=== PATIENT | male | born 1980 | race Caucasian/White ===

== ENCOUNTER 2018-06-02 09:38 | Emergency (ER) | payer MEDICARE, MEDICAID, SELFPAY ==
[2018-06-02 09:44] VITALS: BP 129/85; PULSE 75; RESP 16; TEMP 36.6; O2SAT 98
--- NOTE | 2018-06-02 10:20 | ED.GENADUL_ITS ---
Discharge Plan Disposition Patient Disposition: HOME Condition: Fair Discharge Details Chief Complaint: FacialProb Clinical Impression: Sinus pain, Lymphadenopathy Primary Care Provider: Reinaldo Funk ED Provider: Taina Perry Home Meds and New Rx's Prescriptions: Continue levothyroxine 125 mcg tablet 125 mcg PO DAILY RF: 0 chlorthalidone 25 mg tablet 25 mg PO DAILY RF: 0 lisdexamfetamine [Vyvanse] 50 mg capsule 50 mg PO DAILY RF: 0 alprazolam 1 mg tablet 2 mg PO HS RF: 0 lurasidone [Latuda] 80 mg tablet 80 mg PO DAILY RF: 0 acetaminophen 650 mg tablet extended release 650 mg PO DAILY RF: 0 pregabalin 100 mg capsule 100 mg PO TID Qty: 90 RF: 3 ibuprofen 600 mg Tablet 600 mg PO PRN PRNRF: 0 Discharge Instructions Instructions: Sinusitis (ED) Additional Instructions: Encourage hydration. Tylenol and/or ibuprofen as needed for discomfort. You may try Afrin as directed on the packaging to help with sinus congestion. Please not take this more than 3 days. Please follow-up with primary care provider tomorrow as previously scheduled. If you develop difficulty breathing , shortness of breath or other new/worsening symptoms please seek care urgently once again. Referrals: Reinaldo Funk MD [Primary Care Provider] - Discharge Data Discharge Date/Time-TO BE ENTERED AT DEPARTURE: 06/02/18 10:24 Medical Decision Making Patient is a 37-year-old male, coming by significant other, with chief complaint of left-sided facial and neck pain. He reports the discomfort began approximately 4 days ago. His significant other notes that he has been congested and sneezing frequently. Has been using nasal decongestion, is unclear as to what type this is but reports it was prescribed to him for his seasonal allergies and by ENT. States that he has only used this intermittently. Denies any fevers or chills. Patient reports he has a chronic cough associated with smoking. Denies any difficulty swallowing or pain with swallowing. Denies any pain chewing or dental discomfort. Denies otalgia. On exam, he has a singular probable enlarged lymph node in the area of discomfort on the left side of the mandible. He is also point tender over the left frontal and maxillary sinuses. No pain on the right side. At this point, I do not feel this is bacterial origin is only been 4 days since the onset of discomfort. He is nontoxic appearing, afebrile with vital signs in normal limits. Advised nasal saline or Afrin to help with symptom medic management. He has an appointment tomorrow with his primary care at which time we will discuss this further. I encouraged hydration and smoking cessation. We discussed new/worsening symptoms once he care urgently once again. His also reports that he has been rubbing the enlarged lymph node frequently advised that he try to stop this habit. All his questions and concerns were addressed and he is in agreement this plan HPI General Mode of arrival: ambulatory . Date/Time Provider Initiated Documentation: 06/02/18 09:40 . Limitations to Documentation: no limitations . Information obtained by: patient and family . History of Present Illness 37 year old M presents to the emergency department with the chief complaint of left sided facial pain, described as moderate, with intensity rated at 9. Quality is described as aching, and is localized to the face. Patient reports no radiation. and it has been constant. No relieving factors improve symptom(s), No exacerbating factors reported . Patient notes denies cough, fever/chills, headaches, loss of appetite, malaise, nausea/vomiting, rash and shortness of breath. Patient did receive the following treatments prior to arrival, none Related Data Home Medications Medication Instructions Recorded Confirmed acetaminophen ER 650 mg 650 mg PO DAILY tab 04/07/18 06/02/18 tablet,extended release alprazolam 1 mg tablet 2 mg PO HS tab 04/07/18 06/02/18 chlorthalidone 25 mg tablet 25 mg PO DAILY 04/07/18 06/02/18 levothyroxine 125 mcg tablet 125 mcg PO DAILY 04/07/18 06/02/18 lisdexamfetamine 50 mg capsule 50 mg PO DAILY 04/07/18 06/02/18 lurasidone 80 mg tablet 80 mg PO DAILY 04/07/18 06/02/18 pregabalin 100 mg capsule 100 mg PO TID #90 cap 04/08/18 06/02/18 ibuprofen 600 mg PO PRN PRN 06/02/18 06/02/18 Previous Rx's Medication Instructions Recorded pregabalin 100 mg capsule 100 mg PO TID #90 cap 04/08/18 Allergies Allergy/AdvReac Type Severity Reaction Status Date / Time amoxicillin Allergy Unverified 06/02/18 09:47 Penicillins Allergy Unverified 06/02/18 09:47 Sulfa (Sulfonamide Allergy Unverified 06/02/18 09:47 Antibiotics) gabapentin AdvReac Intermediate agitation Unverified 06/02/18 09:47 trazodone AdvReac Mild Other (See Unverified 06/02/18 09:47 Comment) clonidine AdvReac Unverified 06/02/18 09:47 General Stated Complaint: FacialProb CAROL: 3 Review of Systems Constitutional Reports as per HPI, Denies chills, Denies fever(s), Denies headache(s) and Denies poor appetite Eyes Denies blurry vision, Denies change in vision, Denies diplopia and Denies eye discharge ENT Reports as per HPI, Denies otalgia, Reports facial pain, Denies headache(s), Denies hearing loss, Denies hoarseness, Reports nasal congestion, Reports sinus pain, Reports sinus pressure, Denies sore throat and Denies throat swelling Cardiovascular Denies chest pain, Denies dyspnea and Denies dyspnea on exertion Respiratory Denies cough, Denies dyspnea and Denies dyspnea on exertion Gastrointestinal Denies abdominal pain, Denies change in stool character, Denies nausea and Denies vomiting Integumentary/Breasts Reports as per HPI, Denies rash, Reports skin swelling, Denies sores and Denies jaundice Neurologic Denies headache(s) Allergic/Immunologic Denies throat swelling PFSH Family History Mother Depression Emphysema lung Cerebrovascular accident Father Diabetes Essential hypertension Sister No problems noted. Sister No problems noted. Grandfather No problems noted. Grandfather No problems noted. Grandmother No problems noted. Grandmother Diabetes Son No problems noted. Social History household members: spouse current occupational status: disabled pets and animals: Yes pets and animals: dog(s) frequency: does not exercise Smoking/Tobacco Use Status: Current every day tobacco type: cigarettes alcohol intake: never substance use type: marijuana matt/religious: Amish special matt needs: No Surgical History Tonsillectomy Exam Const General: cooperative, healthy appearing, comfortable, no acute distress, well developed and well groomed Nutritional Appearance: average body habitus and well nourished Orientation: alert, awake and oriented x3 HENMT Head: normal to inspection and normocephalic Ears: hearing grossly normal bilaterally, external ears normal and TM's normal bilaterally General nose exam: external nose normal and nares normal Face and sinus: sinuses tender and sinus tenderness (both on left side) frontal and maxillary Mouth: oral mucosae normal, lip normal, oropharynx normal and mucous membranes dry (patient appears dry on exam) Throat: posterior oropharynx normal and tonsils normal Eyes General: appearance normal, both eyes and all related structures Neck Neck: normal visual inspection, full ROM, no lymphadenopathy and no meningeal signs Resp Effort & Inspection: normal respiratory effort, able to speak in complete sentences and no respiratory distress Auscultation: clear to auscultation bilaterally Cardio Rate: regular rate Rhythm: regular rhythm Heart Sounds: S1 normal and S2 normal Skin General skin exam: no rashes or lesions noted Lesions: no lesions Rashes: no rashes Neuro General: alert and awake Cranial Nerves: CN's II-XI intact bilaterally Cognition: normal cognition Speech: speech normal Gait: normal gait Psych Appearance: grossly normal and well kempt Mental Status: mental status grossly normal Speech and Movement: speech and movement normal Course Vital Signs Temperature 36.6 C 06/02/18 09:44 Pulse 75 06/02/18 09:44 Respiratory Rate 16 06/02/18 09:44 Blood Pressure 129/85 06/02/18 09:44 Pulse Oximetry 98 06/02/18 09:44 Temperature 36.6 C 06/02/18 09:44 Temperature Source Skin 06/02/18 09:44 Pulse 75 06/02/18 09:44 Respiratory Rate 16 06/02/18 09:44 Blood Pressure 129/85 06/02/18 09:44 Pulse Oximetry 98 06/02/18 09:44 Oxygen Delivery Method Room Air 06/02/18 09:44 Oxygen Flow Rate 0 06/02/18 09:44 Pain Level 9 06/02/18 09:44
== END 2018-06-02 10:24 | disposition home or self-care (01) ==
PROVIDERS: Emergency Provider Physician Assistant; PCP Family Medicine
DX: R59.0 Localized enlarged lymph nodes (principal); R51 Headache; F17.210 Nicotine dependence, cigarettes, uncomplicated
CPT/HCPCS: 99282

== ENCOUNTER → 2018-10-13 09:10 | Outpatient (BNVA) | payer MEDICARE, MEDICAID, SELFPAY | PROVIDERS: PCP Family Medicine; Referring Provider Family Medicine; Visit Provider Surgery | DX: K42.9 Umbilical hernia without obstruction or gangrene (principal); F17.210 Nicotine dependence, cigarettes, uncomplicated; I10 Essential (primary) hypertension | CPT/HCPCS: 99212; 99214 ==

== ENCOUNTER 2018-10-13 10:10 | Outpatient (CLI) | payer MEDICARE, MEDICAID, SELFPAY | END 2018-10-13 10:30 | PROVIDERS: PCP Family Medicine; Visit Provider Family Medicine | DX: R69 Illness, unspecified (principal) | CPT/HCPCS: 36415; 84520; 82565; 86431 ==

== ENCOUNTER 2018-10-15 01:24 | Outpatient (CLI) | payer MEDICARE, MEDICAID, SELFPAY ==
--- NOTE | 2018-10-15 08:18 | DI.CT_ITS ---
SYMPTOM/DIAGNOSIS: PAIN RADIATING TO RT SIDE, HERNIA, K46.[address]: The study was carried out according to the usual protocol with an intravenous administration of 100 cc's of Omnipaque 350 and oral contrast. The lung bases are unremarkable. The liver and gallbladder are intact. The pancreas is intact. The spleen is unremarkable. The kidneys are normal. The adrenals are normal. There is no evidence of bowel obstruction and no localized bowel abnormality is apparent. There is no evidence of free air or free fluid in the intraperitoneal space. The bladder is intact. The reproductive organs as visualized are unremarkable. A small fat containing umbilical hernia is apparent. There is no evidence of an aortic aneurysm. There are minimal degenerative changes involving the lower dorsal and lumbar spine. SUMMARY: The examination is within normal limits.
[2018-10-15 09:22] LABS: BUN 21 mg/dL (7-18); CREATININE 0.93 mg/dL (0.70-1.30)
[2018-10-15] MEDS: Omnipaque 350 MG/ML 100 ML BTL IJ (09:48)
[2018-10-16 11:14] LABS: Rheumatoid Factor <8 IU/mL (<12.5)
== END 2018-10-15 01:44 ==
PROVIDERS: PCP Family Medicine; Visit Provider Surgery
DX: R10.31 Right lower quadrant pain (principal); K46.9 Unspecified abdominal hernia without obstruction or gangrene; K42.9 Umbilical hernia without obstruction or gangrene; M25.50 Pain in unspecified joint
CPT/HCPCS: 84520; 74177; 82565; 86431; J3490

== ENCOUNTER → 2018-10-20 12:48 | Outpatient (BNVA) | payer MEDICARE, MEDICAID, SELFPAY | PROVIDERS: PCP Family Medicine; Referring Provider Family Medicine; Visit Provider Surgery | DX: K42.9 Umbilical hernia without obstruction or gangrene (principal); I10 Essential (primary) hypertension; F17.210 Nicotine dependence, cigarettes, uncomplicated | CPT/HCPCS: 99212; 99214 ==

== ENCOUNTER 2018-10-31 09:38 | Outpatient (CLI) | payer MEDICARE, MEDICAID, SELFPAY ==
[2018-10-31 11:22] LABS: BUN 24 mg/dL (7-18); CREATININE 0.82 mg/dL (0.70-1.30); Calcium 9.1 mg/dL (8.5-10.1); Chloride 100 mmol/L (98-107); Glucose 122 mg/dL (70-100); Potassium 3.8 mmol/L (3.5-5.1); Sodium 138 mmol/L (136-145)
== END 2018-10-31 09:58 ==
PROVIDERS: PCP Family Medicine; Visit Provider Family Medicine
DX: I10 Essential (primary) hypertension (principal)
CPT/HCPCS: 36415; 80048

== ENCOUNTER 2018-11-06 07:47 | Emergency (ER) | payer MEDICARE, SELFPAY ==
[2018-11-06 07:50] VITALS: BP 152/101; PULSE 81; RESP 16; TEMP 36; O2SAT 99
--- NOTE | 2018-11-06 08:12 | DI.RAD_ITS ---
SYMPTOM/DIAGNOSIS: JUMPED OFF BED, PAIN,? FX VS EFFUSION RIGHT HIP AND PELVIS: There is no evidence of a fracture or dislocation. RIGHT KNEE: There is no evidence of a fracture or dislocation.
--- NOTE | 2018-11-06 08:13 | ED.GENADUL_ITS ---
Discharge Plan Disposition Patient Disposition: HOME Condition: Stable Discharge Details Chief Complaint: Orthopedic Clinical Impression: Right knee sprain, Strain of right hip and thigh Primary Care Provider: Reinaldo Funk ED Provider: Dariela Cortes Home Meds and New Rx's Prescriptions: Continued dicyclomine 10 mg capsule 10 mg PO QID PRN (Reason: abdominal pain) Qty: 30 RF: 1 trazodone 100 mg tablet 100 mg PO DAILY RF: 0 cyclobenzaprine 10 mg tablet 10 mg PO HS PRN (Reason: muscle spasm) Qty: 30 RF: 0 chlorthalidone 25 mg tablet 25 mg PO DAILY RF: 0 Latuda 80 mg tablet 80 mg PO DAILY RF: 0 acetaminophen 650 mg tablet extended release 650 mg PO DAILY RF: 0 alprazolam 2 mg tablet 2 mg PO ONCE PRN (Reason: anxiety) Qty: 1 RF: 0 fluticasone propionate 50 mcg/actuation spray,suspension 2 spray SHAYLA DAILY Qty: 9.9 RF: 4 levothyroxine 125 mcg tablet 125 mcg PO DAILY Qty: 90 RF: 4 pregabalin 100 mg capsule 100 mg PO TID Qty: 90 RF: 3 ibuprofen 600 mg Tablet 600 mg PO PRN PRNRF: 0 Discharge Instructions Instructions: Knee Sprain (ED), Muscle Strain (ED) Additional Instructions: Rest, ice, elevate right lower extremity is much as possible. Use the crutches to help with ambulation for the next 2 days. Follow-up with your primary care doctor in 1 week for reevaluation as needed and for referral to orthopedics if your symptoms do not improve or worsen. Return immediately to the emergency department with any worsening or new concerning symptoms. Discharge Data Discharge Physician: Dariela Cortes Medical Decision Making 38-year-old male who presents with right hip and right knee pain after jumping out of bed and landing on his right leg this morning. Patient able to ambulate but with pain. No ligamentous instability. Pain with range of motion at right hip and right knee. No evidence of trauma. Neurovascularly intact. Patient took Aleve and Tylenol prior to arrival. Will send for right hip and right knee x-rays. 0855 -- Xrays negative. Will place an kalyn wrap and give crutches. Pt instructed on the importance of rest, ice, elevate. Instructed to alternate tylenol and motrin. Instructed to f/u with pcp for re-evaluation in 1 week and for referral to orthopedics if symptoms do not improve or worsen. Pt instructed to return to the ER with any worsening or new concerning symptoms. HPI General Mode of arrival: ambulatory . Date/Time Provider Initiated Documentation: 11/06/18 08:10 . Limitations to Documentation: no limitations . Information obtained by: patient . HPI Narrative: Patient is a 38-year-old male who presents with right hip and right knee pain that started after jumping out of bed this morning. Patient states he has doors under his bed and needs to jump outward in order to get out of bed. Patient states he landed on his right foot but is now having pain in his right hip and right knee. He is able to ambulate but with pain. He took Aleve and Tylenol prior to arrival. He denies any other injuries. He denies head injury. He denies pain in any other extremity. He denies right ankle or right foot pain. Related Data Home Medications Medication Instructions Recorded Confirmed acetaminophen ER 650 mg 650 mg PO DAILY tab 04/07/18 11/06/18 tablet,extended release chlorthalidone 25 mg tablet 25 mg PO DAILY 04/07/18 11/06/18 lurasidone 80 mg tablet 80 mg PO DAILY 04/07/18 11/06/18 ibuprofen 600 mg PO PRN PRN 06/02/18 11/06/18 fluticasone propionate 50 2 spray SHAYLA DAILY #9.9 gm 06/04/18 11/06/18 mcg/actuation nasal spray,suspension levothyroxine 125 mcg tablet 125 mcg PO DAILY #90 tab 07/15/18 11/06/18 pregabalin 100 mg capsule 100 mg PO TID #90 cap 08/07/18 11/06/18 cyclobenzaprine 10 mg tablet 10 mg PO HS PRN #30 tab 09/16/18 11/06/18 trazodone 100 mg tablet 100 mg PO DAILY 09/16/18 11/06/18 alprazolam 2 mg tablet 2 mg PO ONCE PRN #1 tab 10/14/18 11/06/18 dicyclomine 10 mg capsule 10 mg PO QID PRN #30 cap 10/31/18 11/06/18 Previous Rx's Medication Instructions Recorded fluticasone propionate 50 2 spray SHAYLA DAILY #9.9 gm 06/04/18 mcg/actuation nasal spray,suspension levothyroxine 125 mcg tablet 125 mcg PO DAILY #90 tab 07/15/18 pregabalin 100 mg capsule 100 mg PO TID #90 cap 08/07/18 cyclobenzaprine 10 mg tablet 10 mg PO HS PRN #30 tab 09/16/18 alprazolam 2 mg tablet 2 mg PO ONCE PRN #1 tab 10/14/18 dicyclomine 10 mg capsule 10 mg PO QID PRN #30 cap 10/31/18 Allergies Allergy/AdvReac Type Severity Reaction Status Date / Time amoxicillin Allergy anaphylaxis, Verified 11/06/18 07:55 rash, hives Penicillins Allergy anaphylaxis, Verified 11/06/18 07:55 hives, rash Sulfa (Sulfonamide Allergy breaks out Verified 11/06/18 07:55 Antibiotics) in hives, diarrhea, anaphylaxis gabapentin AdvReac Intermediate agitation Verified 11/06/18 07:55 clonidine AdvReac makes Verified 11/06/18 07:55 chest tight General Stated Complaint: Orthopedic CAROL: 5 Review of Systems Review of Systems All systems reviewed & are unremarkable except as noted in HPI and below PFSH Medical History Smoker (Chronic) Gastroesophageal reflux disease (Chronic) Depressive disorder (Chronic) Bipolar I disorder (Chronic) Essential hypertension (Chronic) BMI 40.0-44.9, adult (Chronic 01/11/16) Attention deficit hyperactivity disorder, combined type (Chronic) Anxiety (Chronic) Obsessive-compulsive disorder (Chronic) Hernia, umbilical (Acute) Dorsopathy, unspecified (Chronic) Overweight (Chronic) Sensorineural hearing loss (Chronic) Surgical History Tonsillectomy Family History Mother Depression Emphysema lung Stroke Asthma Hypertension Hyperlipidemia Father Diabetes Essential hypertension Alcohol abuse Grandmother Diabetes Sister Alcohol abuse Depression Sister No problems noted. Son Depression Social History Smoking/Tobacco Use Status: Current every day Tobacco Type: cigarettes Quit status: considering quitting Second Hand Exposure: Yes Alcohol Intake: former Drug use: Daily Substance use type: marijuana Caregiver/Support person: Yes Household members: spouse Housing: house Do you need help understanding health information?: Never Pets and animals: Yes Pets and animals: dog(s) Sexually active: Yes Do you think of yourself as: straight/heterosexual Current gender identity: male What is your relationship status?: How often do you talk on the phone with friends or family?: three or more times per week How often do you get together with friends or relatives?: decline to answer How often do you attend yazdanism or faith services?: decline to answer Do you belong to any clubs or organized social groups?: no Panel score (0-1 are the most socially isolated patients): 2 What type of physical activity do you participate in: none Frequency: does not exercise Daja/Cheondoism: Sabianist Special daja needs: No Do you feel safe at home: Yes Do you feel safe in your relationship?: Yes Exam Const General: cooperative, healthy appearing and no acute distress HENMT Head: normal to inspection Mouth: oral mucosae normal Eyes General: appearance normal, both eyes and all related structures Neck Neck: normal visual inspection Resp Effort & Inspection: normal respiratory effort and able to speak in complete sentences Cardio Rate: regular rate Skin General skin exam: no rashes or lesions noted Neuro General: alert, awake and oriented x3 Motor: muscle tone normal throughout Extrem Other: Pain in right knee with range of motion. Negative anterior and posterior drawer test. No pain or laxity with valgus or varus stress. No edema, ecc hymosis, erythema, abrasion or laceration to right knee. Pain in right hip and right proximal thigh with range of motion. No edema, ecchymosis, erythema, external rotation or leg shortening noted. No pain with range of motion at right ankle. No tenderness palpation of right ankle right foot. Right DP/PT pulses intact. No pelvis instability. No tenderness to palpation of left hip. Psych Appearance: grossly normal Affect: normal affect Course Vital Signs Temperature 96.8 F L 11/06/18 07:50 Pulse 81 11/06/18 07:50 Respiratory Rate 16 11/06/18 07:50 Blood Pressure 152/101 H 11/06/18 07:50 Pulse Oximetry 99 11/06/18 07:50 Temperature 96.8 F L 11/06/18 07:50 Temperature Source Temporal Artery Scan 11/06/18 07:50 Pulse 81 11/06/18 07:50 Respiratory Rate 16 11/06/18 07:50 Respiratory Effort Non-Labored 11/06/18 07:53 Blood Pressure 152/101 H 11/06/18 07:50 Blood Pressure Position Sitting 11/06/18 07:50 Pulse Oximetry 99 11/06/18 07:50 Oxygen Delivery Method Room Air 11/06/18 07:50 Oxygen Flow Rate 0 11/06/18 07:50 Pain Level 5 11/06/18 07:59
== END 2018-11-06 09:10 | disposition home or self-care (01) ==
PROVIDERS: Emergency Provider Physician Assistant; PCP Family Medicine
DX: S83.91XA Sprain of unspecified site of right knee, initial encounter (principal); S76.811A Strain of other specified muscles, fascia and tendons at thigh level, right thigh, initial encounter; S76.011A Strain of muscle, fascia and tendon of right hip, initial encounter; X50.1XXA Overexertion from prolonged static or awkward postures, initial encounter
CPT/HCPCS: 99284; 73502; 73564; 99282; E0114

== ENCOUNTER 2018-11-11 06:03 | Day surgery (SDC) | payer MEDICARE, SELFPAY ==
[2018-11-11] VITALS (8 sets, daily range): BP systolic 125–153; BP diastolic 83–111; PULSE 68–93; RESP 14–20; TEMP 35.9–37.1; O2SAT 91–96
[2018-11-11] MEDS: Lactated Ringers 1,000 ML 80 ML IV (06:48)
[2018-11-11] MEDS: CLINDAMYCIN 600 MG/50 ML BAG 100 MG IVPB (08:28)
[2018-11-11] MEDS: Bupivacaine 0.25% Pres-Free 30 ML VIAL (10:20)
[2018-11-11] MEDS: Bupivacaine LIPOSOME/PF 133 MG/10 ML VIAL IJ (10:20)
--- NOTE | 2018-11-11 10:20 | W.PM.OP ---
Date of service: 11/11/18 Time of Service: 10:20 Operative Note DATE OF PROCEDURE: 11/11/18 PRE-OP DIAGNOSIS: symptomatic umbilical hernia POST-OP DIAGNOSIS: same PROCEDURE: laprascopic umbilical hernia repair w/ mesh SURGEON: Shavonne Sesay ASSISTING SURGEON: Yane Villalobos ANESTHESIA: GETA ESTIMATED BLOOD LOSS: 10 PATHOLOGY: none sent TOURNIQUET TIME: 0 COMPLICATIONS: None Patient was transported to: PACU Implants: bard 4.6 mesh see RN notes Indications: pain Findings: umbilical hernia Procedure Description: dicated
--- NOTE | 2018-11-11 10:53 | W.PM.DSUDISC ---
Discharge Plan Disposition Patient Disposition: HOME Condition: Improving Discharge Details Reason For Visit: laprascopic hernia repair Attending Provider: Shavonne Sesay Primary Care Provider: Reinaldo Funk Home Meds and New Rx's Prescriptions: New hydrocodone-acetaminophen [[place]] 5-325 mg tablet 1 tab PO Q4H PRN (Reason: pain) Qty: 14 RF: 0 ibuprofen 800 mg tablet 800 mg PO TID PRN (Reason: pain) Qty: 60 RF: 4 Continued dicyclomine 10 mg capsule 10 mg PO QID PRN (Reason: abdominal pain) Qty: 30 RF: 1 trazodone 100 mg tablet 100 mg PO DAILY RF: 0 cyclobenzaprine 10 mg tablet 10 mg PO HS PRN (Reason: muscle spasm) Qty: 30 RF: 0 chlorthalidone 25 mg tablet 25 mg PO HS RF: 0 Latuda 80 mg tablet 80 mg PO HS RF: 0 fluticasone propionate 50 mcg/actuation spray,suspension 2 spray SHAYLA DAILY Qty: 9.9 RF: 4 pregabalin 100 mg capsule 100 mg PO TID Qty: 90 RF: 3 levothyroxine 125 mcg tablet 125 mcg PO HS RF: 0 Discontinued acetaminophen 650 mg tablet extended release 650 mg PO DAILY RF: 0 ibuprofen 600 mg Tablet 600 mg PO PRN PRNRF: 0 Discharge Instructions Additional Instructions: Dr. Sesay HERNIA REPAIR ? POSTOPERATIVE INSTRUCTIONS ? The MESH surgery for hernia repair allows the patient to return to normal activities at an early date. Patients who have this type of surgery can usually be expected to return to work within 2-3 weeks and have minimal amounts of discomfort. ? ACTIVITY: The day of surgery should be spent resting. However, you can be up for short periods of time, I.E., going to the bathroom or kitchen. Avoid lifting or straining. On the day following surgery, you can be up and about as desired. ? LIFTING: Restrict your lifting to no more than five (5) pounds for the first week following surgery. ? DIET: There are no dietary restrictions following surgery. However, you may want to start with small amounts of liquids to avoid nausea the day of surgery. ? INCISION CARE: A dressing covers your incision. You will notice strips of tape covering the wound ? DO NOT REMOVE THESE STRIPS - they help the wound to heal. After 24 hours you may shower and apply a clean dressing over the strips of tape. The dressing may be replaced as necessary. An ice bag may be applied to the incision for 72 hours following surgery. ? SIGNS OF INFECTION: It is not unusual to have some black and blue discoloration of the skin around the incision. It will slowly disappear. If you have any increased redness, drainage, fever (above 100 degrees), please contact your doctor for an examination. ? DISCOMFORT: You may expect to have some mild discomfort at the incision sight. If severe pain develops you should contact your doctor for further instructions. ? URINATION: Patients who have surgery occasionally have problems urinating. If you experience problems and are not able to urinate within 6 hours following your surgery, please call your doctor immediately or go to your nearest Emergency Room for evaluation. ? DRIVING: NO driving for five (5) days after surgery ? MEDICATIONS: You have been given a prescription for pain. If you are taking pain medication, follow the instructions on the label and do not drive. Some patients have conditions that require antibiotics, please follow the instructions on the label and take all of the antibiotics. Pain medications can make you very constipated. Make sure you are moving your bowels daily. If not, take Miralax, milk of magnesia or magnesium citrate. ? REPORT: Unusual swelling, severe pain, unresolved nausea, signs of infection, or difficulty in urination to your surgeon. Follow up in clinic with Dr. Sesay in 1-2 weeks. Activity:: no lifting over 5#'s Remove Dressings/Wound Care:: 24 hours Shower/Bathe:: 24 hours Diet:: As Tolerated Discharge Orders Discharge Orders: Discharge Order (Routine); Ordered 11/11/18 Ordered By: Shavonne Sesay DS: Diagnosis Discharge Diagnosis (1) Umbilical hernia: Status: Chronic (2) Smoker: Status: Chronic (3) Gastroesophageal reflux disease: Status: Chronic
--- NOTE | 2018-11-11 11:52 | ROE_ITS ---
DATE OF PROCEDURE: November 11, 2018 PREOPERATIVE DIAGNOSIS: Umbilical hernia. POSTOPERATIVE DIAGNOSIS: Same. PROCEDURE: Laparoscopic umbilical hernia. SURGEON: Shavonne Sesay D.O. PUNCH PRESS OPERATOR HELPER: Barby Bain ANESTHESIA: General. ESTIMATED BLOOD LOSS: < 5 cc's CONDITION: The patient tolerated the procedure well without complication. HISTORY: Mr. Singh is a 38-year-old male with a symptomatic umbilical hernia that has failed outpatient conservative medical management and is here today for laparoscopic hernia repair. Informed consent was obtained, explaining the risks and benefits of the procedure, including but not limited to bleeding, infection, pneumonia, blood clot, possible damage to bowel, bladder or blood vessels, recurrence, reaction to the mesh necessitating removal, chronic pain, chronic numbness, recurrence, complications from the anesthesia and other unforetold complications. PROCEDURE DESCRIPTION: The patient was marked in preop. He was brought to the surgical suite. Anesthesia is administered per the Department of Anesthesia. He did receive preop antibiotics. A Grayson catheter and NG tube are placed. A time-out is performed. The patient is prepped and draped in the usual sterile fashion using a ChloraPrep scrub solution. A Veress needle is inserted into the umbilicus. The skin is elevated with towel clips. A #11 blade is used to make a small incision at the umbilicus. The Veress is inserted. The drop test is positive and insufflation is begun; when 15 mm of pressure is noted on the monitor the Veress is removed. A #5 port is inserted into the right upper quadrant. The camera is inserted through the port, which shows no damage to underlying structures. A second 5 mm port is placed under direct visualization, using 0.25% Marcaine for local field blocks in the left upper quadrant and in the left lower quadrant. A 12 port is placed in the right lower quadrant. He has a defect slt larger than the size of a quarter. He has some fatty tissue hanging through this. There is no omentum adhered up to the area. The fatty tissue is taken down in clearing off the peritoneum and fascia. He has a large urachal remnant and this is taken down using cautery and sharp dissection. There is no bleeding noted. The umbilicus is cleared with 2 cm of space around. An 18 gauge spinal needle is then used to delineate the borders of the hernia defect and a 4.6 Bard mesh with the positioning assistance device is used; it is introduced through the 5 port and the guidance positioning system is pulled up through the umbilicus. The balloon is insufflated and clamped into place. A [employer] ProTack device is then used to tack around the edges of the mesh. The positioning device is de-sufflated and removed. It is intact. The ProTack is then used to tack the mesh down every 2 mm around the edges and in the central portions. There is no bleeding noted. The pneumoperitoneum is evacuated and the mesh lays flat without wrinkling or buckling. All ports are removed. There is no bleeding from the port sites. Sponge and instrument counts are correct. The fascia under the 12 mm port is closed with #0 Vicryl. The port sites are irrigated. The skin is closed with skin glue and sterile dressings are applied. The patient tolerated the procedure well without complication and transferred to the Recovery Room in stable condition. cc: Reinaldo Funk M.D.
[2018-11-11] MEDS: HYDROcodone 5/Acetaminophen 325 TAB PO (12:11)
== END 2018-11-11 12:55 | disposition home or self-care (01) ==
PROVIDERS: PCP Family Medicine; Visit Provider Surgery
PROC: (CPT 49650; principal; 2018-11-11 08:15)
DX: K42.9 Umbilical hernia without obstruction or gangrene (principal); I10 Essential (primary) hypertension; F17.210 Nicotine dependence, cigarettes, uncomplicated; K21.9 Gastro-esophageal reflux disease without esophagitis
CPT/HCPCS: 49652; 93005; 93010; C1781; J1100; J1885; J2250; J2405

== ENCOUNTER → 2018-11-14 11:04 | Outpatient (BNVA) | payer MEDICARE, MEDICAID, SELFPAY | PROVIDERS: PCP Family Medicine; Referring Provider Family Medicine; Visit Provider Physical Therapy Assistant | DX: Z48.815 Encounter for surgical aftercare following surgery on the digestive system (principal); G89.18 Other acute postprocedural pain; I10 Essential (primary) hypertension | CPT/HCPCS: 99212 ==

== ENCOUNTER → 2018-12-01 08:49 | Outpatient (BNVA) | payer MEDICARE, SELFPAY | PROVIDERS: PCP Family Medicine; Referring Provider Family Medicine; Visit Provider Surgery | DX: Z48.815 Encounter for surgical aftercare following surgery on the digestive system (principal); K42.9 Umbilical hernia without obstruction or gangrene; I10 Essential (primary) hypertension ==

== ENCOUNTER 2020-10-10 14:34 | Emergency (ER) | payer MEDICARE, SELFPAY ==
--- NOTE | 2020-10-10 14:45 | RT.EKG_ITS ---
APPROVED REPORT Exam: Resting ECG Patient Location: E HR:97 bpm ECG Measurements Heart Rate 97 AXIS MI 153 P 64 QRSd 98 QRS 70 QT 371 T 5 QTc 471 Conclusion Sinus rhythm...normal P axis, V-rate 60- 99 SR 97, nl axis, non-specific ST changes, non-diagnostic ekg I have reviewed and interpreted ECG and agree with software generated interpretation.
[2020-10-10 14:50] VITALS: BP 141/85; PULSE 105; RESP 15; TEMP 37; O2SAT 96
--- NOTE | 2020-10-10 15:15 | DI.CT_ITS ---
EXAM: CT CHEST PE CTA CLINICAL HISTORY: SOB, R/O PE, Chest pain. TECHNIQUE: Imaging Protocol: Axial CT angiography was performed with multi-slice acquisition and mu lti-planar and/or 3D reconstructions. CONTRAST MATERIAL: Intravenous: Omnipaque 350 Contrast volume:100 mL COMPARISON: CT CT ABDOMEN PELVIS W from 10/15/2018 FINDINGS: Tracheobronchial tree: Patent where visualized. Pulmonary parenchyma: No consolidation or dominant measurable mass. No architectural distortion. Pulmonary Arteries: No evidence of filling defect to suggest pulmonary emboli. Mediastinum and Becki: No dominant adenopathy or fluid collection. Visualized thyroid gland: Unremarkable. Pleura: No effusion or pneumothorax. Heart: The heart is not dilated. No coronary artery calcifications are seen. No pericardial effusion. Aorta: Thoracic aorta non-dilated. No evidence of dissection. Upper abdomen: Unremarkable. Soft tissues: Unremarkable. Bones: Mild degenerative changes. IMPRESSION: No evidence of pulmonary embolism, thoracic aortic dissection or aneurysm. RADIATION DOSE DELIVERED: 547.3mGy.cm Total DLP DATA REPOSITORY: All CT scans at this facility are submitted to the National Radiology Data Registry (NRDR) Dose Index Registry (DIR) with the [employer] (ACR). RADIATION OPTIMIZATION: All CT scans at this facility use at least one of these dose optimization te chniques: automated exposure control; mA and/or kV adjustment per patient size (includes targeted exa ms where dose is matched to clinical indication); or iterative reconstruction.
--- NOTE | 2020-10-10 15:20 | W.ED.GENAD ---
Discharge Plan Disposition Patient Disposition: HOME Condition: Good Discharge Details Clinical Impression: Chest pain, Flank pain Primary Care Provider: Valentine Ortiz ED Provider: Taina Perry Home Meds and New Rx's Prescriptions: Continued fluticasone propionate 50 mcg/actuation spray,suspension 2 spray SHAYLA DAILY PRN (Reason: allergy symptoms) Qty: 9.9 RF: 3 chlorthalidone 25 mg tablet 25 mg PO HS Qty: 90 RF: 4 Latuda 20 mg tablet 20 mg PO QPM RF: 0 zolpidem 10 mg tablet 10 mg PO QHS PRNRF: 0 Latuda 80 mg tablet 80 mg PO DAILY RF: 0 pregabalin 100 mg capsule 100 mg PO TID Qty: 90 RF: 5 cyclobenzaprine 10 mg tablet 10 mg PO HS PRN (Reason: muscle spasm) Qty: 30 RF: 4 ibuprofen 800 mg tablet 800 mg PO TID PRN (Reason: pain) Qty: 60 RF: 0 levothyroxine 125 mcg tablet 125 mcg PO HS Qty: 90 RF: 4 clonazepam 0.5 mg tablet 0.5 mg PO DAILY PRNRF: 0 Discharge Instructions Instructions: Chest Pain (ED), Flank Pain (ED) Additional Instructions: Your labs and imaging today are reassuring.You may use Tylenol and/or Ibuprofen as needed for discomfort. May try topical options such as Lidocaine patches to help with pain. Please encourage gentle stretching. Encourage deep breathing. Please follow-up with primary care for reevaluation within the next week. If you develop increased pain with any new/worsening symptoms please seek care urgently once again. Referrals: Valentine Ortiz, [employer] [Primary Care Provider] - Discharge Data Discharge Date/Time-TO BE ENTERED AT DEPARTURE: 10/10/20 19:15 Medical Decision Making <Hillary Sampson - Last Filed: 10/14/20 15:37> 40-year-old morbidly obese male presents to the ER with chief complaint of shortness of breath and left-sided chest pain which began earlier today he reports radiation of pain into his left anterior and posterior shoulder. He states it hurts to breathe. He denies any cough or productive cough. He denies any nausea vomiting diarrhea, he is a daily smoker. He denies any abdominal pain. He denies any recent travel. He denies any swelling in his lower extremities. He denies any recent injuries. He has a past medical history of hypertension, GERD, OCD, anxiety, hypothyroidism hernia repair, tonsillectomy. He does endorse marijuana use, he does state that he is a former alcohol user none currently. EKG was reviewed by Celeste Amezcua MD ER attending, please see her official reading and report, there was no old EKGs available for review. At this time work-up ordered including CBC, CMP, serial troponins, proBNP, Covid testing, CT chest rule out PE versus pneumonia. Differential diagnosis includes but not limited to coronary artery disease, NSTEMI, PE, pneumonia, kidney stone, UTI, pancreatitis. Care is being handed off to oncoming provider KIRILL Love. Patient case and details discussed with her she verbalizes understanding and recommends lipase and urinalysis to add on to labs. <KIRILL Love - Last Filed: 10/10/20 23:36> Care transition myself from Emy Meade NP. Please see her initial note regarding history, presentation and exam. In brief, patient is a 40-year-old male who began having some in the left lower chest pain. No infectious symptoms. Lab work has been completed and is significant for white count of 13.8. H&H stable. CMP significant for an alk phos of 128, patient has been elevated historically. Initial troponin is within normal limit. No STEMI or acute ischemic changes noted on EKG. At the time I assumed his care, Covid testing, CT scan and repeat troponin pending. Lipase within normal limits. FINDINGS: Pulmonary arteries: Normal. No pulmonary emboli. Aorta: Unremarkable. No aortic aneurysm. No aortic dissection. Lungs: Unremarkable. No consolidation. No masses. Pleural spaces: Unremarkable. No pneumothorax. No pleural effusion. Heart: Unremarkable. No cardiomegaly. No pericardial effusion. Lymph nodes: Unremarkable. No enlarged lymph nodes. Bones/joints: Mild chronic degenerative changes of the spine are present. Soft tissues: Unremarkable. IMPRESSION: No evidence of pulmonary embolism. Reevaluated patient. Patient is now indicating the left flank as area of pain. He has pain with CVA percussion. Lungs clear, cardiac auscultation normal. Patient states that this seems the same as when he had kidney stone historically. We discussed presentation more as well. Sudden onset of pain at 1000 today. Pain improves with ambulation. No worsening of symptoms with exertion. Pain is not substernal, low lateral chest wall. FINDINGS: Liver: Normal. No mass. Gallbladder and bile ducts: Normal. No calcified stones. No ductal dilation. Pancreas: Normal. No ductal dilation. Spleen: Normal. No splenomegaly. Adrenal glands: Normal. No mass. Kidneys and ureters: Normal. No hydronephrosis. The ureters are well visualized with no evidence of ureteral obstruction. Stomach and bowel: Unremarkable. No obstruction. No mucosal thickening. Appendix: No evidence of appendicitis. Intraperitoneal space: Unremarkable. No free air. No significant fluid collection. Vasculature: Unremarkable. No abdominal aortic aneurysm. Lymph nodes: Unremarkable. No enlarged lymph nodes. Urinary bladder: Unremarkable as visualized. Reproductive: Unremarkable as visualized. Bones/joints: Chronic degenerative changes of the spine are present. Soft tissues: Morbid obesity is present. IMPRESSION: No acute findings. I discussed the findings with the patient. Repeat troponin remains less than 0.05. His heart score is 2 making her low risk. Pain is not consistent with cardiac origin. Rather, as this does seem to be so positional dependent, his pain is more consistent with MSK source. He would like to be discharged home. Plan for close f/u with PCP. Strict return precautions were discussed. Encourage weight loss and smoking cessation. All of his questions and concerns were addressed, he is in agreement with this plan. HPI <Hillary Sampson - Last Filed: 10/14/20 15:37> General Mode of arrival: ambulatory. Date/Time Provider Initiated Documentation: 10/10/20 14:36. Limitations to Documentation: no limitations. Information obtained by: patient. HPI Narrative: 40-year-old morbidly obese male presents to the ER with chief complaint of shortness of breath and left-sided chest pain which began earlier today he reports radiation of pain into his left anterior and posterior shoulder. He states it hurts to breathe. He denies any cough or productive cough. He denies any nausea vomiting diarrhea, he is a daily smoker. He denies any abdominal pain. He denies any recent travel. He denies any swelling in his lower extremities. He denies any recent injuries. He has a past medical history of hypertension, GERD, OCD, anxiety, hypothyroidism hernia repair, tonsillectomy. He does endorse marijuana use, he does state that he is a former alcohol user none currently. Related Data Home Medications Medication Instructions Recorded Confirmed fluticasone propionate 50 2 spray SHAYLA DAILY PRN #9.9 gm 12/02/18 10/10/20 mcg/actuation nasal spray,suspension lurasidone 80 mg tablet 80 mg PO DAILY 08/31/19 10/10/20 zolpidem 10 mg tablet 10 mg PO QHS PRN 08/31/19 10/10/20 chlorthalidone 25 mg tablet 25 mg PO HS #90 tab 10/29/19 10/10/20 pregabalin 100 mg capsule 100 mg PO TID #90 cap 06/21/20 10/10/20 cyclobenzaprine 10 mg tablet 10 mg PO HS PRN #30 tab 06/27/20 10/10/20 lurasidone 20 mg tablet 20 mg PO QPM 08/30/20 10/10/20 ibuprofen 800 mg tablet 800 mg PO TID PRN #60 tab 10/03/20 10/10/20 levothyroxine 125 mcg tablet 125 mcg PO HS #90 tab 10/03/20 10/10/20 clonazepam 0.5 mg PO DAILY PRN 10/10/20 10/10/20 Previous Rx's Medication Instructions Recorded fluticasone propionate 50 2 spray SHAYLA DAILY PRN #9.9 gm 12/02/18 mcg/actuation nasal spray,suspension chlorthalidone 25 mg tablet 25 mg PO HS #90 tab 10/29/19 pregabalin 100 mg capsule 100 mg PO TID #90 cap 06/21/20 cyclobenzaprine 10 mg tablet 10 mg PO HS PRN #30 tab 06/27/20 ibuprofen 800 mg tablet 800 mg PO TID PRN #60 tab 10/03/20 levothyroxine 125 mcg tablet 125 mcg PO HS #90 tab 10/03/20 Allergies Allergy/AdvReac Type Severity Reaction Status Date / Time amoxicillin Allergy anaphylaxis, Verified 08/30/20 10:43 rash, hives Penicillins Allergy anaphylaxis, Verified 08/30/20 10:43 hives, rash Sulfa (Sulfonamide Allergy breaks out Verified 08/30/20 10:43 Antibiotics) in hives, diarrhea, anaphylaxis gabapentin AdvReac Intermediate agitation Verified 08/30/20 10:43 clonidine AdvReac makes Verified 08/30/20 10:43 chest tight tramadol AdvReac I don't Verified 08/30/20 10:43 take tramadol. General Stated Complaint: RespSymp CAROL: 2 Review of Systems <Hillary Sampson - Last Filed: 10/14/20 15:37> Narrative: Constitutional: Negative for weight loss, alert and oriented, well groomed, obese body habitus, appears short of breath. HEENT: Denies trauma, headaches, blurry vision, nasal discharge, sore throat, trouble swallowing. Chest: Denies palpitations, irregular rhythm, positive left-sided chest pain increases with movement and breathing, history of hypertension. Respiratory: Denies cough, hemoptysis. Positive shortness of breath associated with left-sided chest pain. GI: Denies abdominal pain, nausea, vomiting, diarrhea, constipation. : Denies dysuria, hematuria, flank pain, rectal bleeding. Neuro: Denies dizziness, blurry vision, weakness, syncope, headache or facial numbness. Hematologic: Denies easy bruising, intolerance to heat or cold, hair loss. [facility] <Hillary Sampson - Last Filed: 10/14/20 15:37> Medical History Abdominal pain Anxiety Attention deficit hyperactivity disorder, combined type Bipolar I disorder BMI 40.0-44.9, adult (01/11/16) Depressive disorder Dorsopathy, unspecified Essential hypertension Gastroesophageal reflux disease Hernia, umbilical 11/11/[address]esay. Obsessive-compulsive disorder Overweight Sensorineural hearing loss Smoker Umbilical hernia Surgical History History of umbilical hernia repair S/P tendon repair Status post tonsillectomy Tonsillectomy Family History Mother Depression Emphysema lung Stroke Asthma Hypertension Hyperlipidemia Father Diabetes Essential hypertension Alcohol abuse Grandmother Diabetes Sister Alcohol abuse Depression Sister No problems noted. Son Depression Social History Smoking/Tobacco Use Status: Current every day Tobacco Type: cigarettes Quit status: considering quitting Second Hand Exposure: Yes Smoking risk assessment performed?: Yes Alcohol Intake: former Drug use: Daily Substance use type: marijuana Details: last time used 2 days ago Caregiver/Support person: Yes Household members: spouse Housing: house Do you need help understanding health information?: Never Pets and animals: Yes Pets and animals: dog(s) Sexually active: Yes Do you think of yourself as: straight/heterosexual Current gender identity: male What is your relationship status?: How often do you talk on the phone with friends or family?: three or more times per week How often do you get together with friends or relatives?: decline to answer How often do you attend alevism or scientologist services?: decline to answer Do you belong to any clubs or organized social groups?: no Panel score (0-1 are the most socially isolated patients): 2 What type of physical activity do you participate in: none Frequency: does not exercise Daja/Taoism: Episcopal Special daja needs: No Do you feel safe at home: Yes Do you feel safe in your relationship?: Yes Exam <Hillary Sampson - Last Filed: 10/14/20 15:37> Narrative Exam Narrative: Constitutional: Alert and oriented x3. Appears stated age. Obese body habitus. Head: Normocephalic, no trauma. Eyes: Pupils PERRLA, Red reflex noted, EOM's intact. Eyelids symmetrical without lesions, discharge, or swelling. ENT: Bilateral TM's WNL, External ear normal to inspection, no mastoid TTP, swelling, or erythema, Nasal turbinates WNL, no nasal discharge. Normal dentition, Posterior pharynx WNL, no exudate. Chest: Tachycardic initially at a rate of 109, Normal S1, S2, distal pulses intact. Resp: Lung sounds are diminished on the left side, with some inspiratory rhonchi noted on the right lower lobe. No wheezing. Musculoskeletal: Normal gait, 5/5 strength to all four extremities. Skin: Capillary refill less than 2 sec. Neurologic: Cranial nerves II-XII intact. Alert and oriented x 3. DTR's intact. Hematologic/Lymphatic: No ecchymosis, no lymphadenopathy. Course <Hillary Sampson - Last Filed: 10/14/20 15:37> Vital Signs Vital signs: Vital Signs Temperature 37.0 C 10/10/20 14:50 Pulse 105 H 10/10/20 14:50 Respiratory Rate 15 10/10/20 14:50 Blood Pressure 141/85 H 10/10/20 14:50 Pulse Oximetry 96 10/10/20 14:50 Temperature 37.0 C 10/10/20 14:50 Pulse 105 H 10/10/20 14:50 Respiratory Rate 15 10/10/20 14:50 Respiratory Effort 10/10/20 15:17 Respiratory Depth Normal 10/10/20 15:17 Blood Pressure 141/85 H 10/10/20 14:50 Blood Pressure Position Sitting 10/10/20 14:50 Pulse Oximetry 96 10/10/20 14:50 Oxygen Delivery Method Room Air 10/10/20 14:50 Oxygen Flow Rate 0 10/10/20 14:50 Pain Level 10 10/10/20 14:50 Sign Out <Hillary Sampson - Last Filed: 10/14/20 15:37> Sign Out Data: Sign Out Comment: 40 year old man Acute onset Left sided chest pain radiating up into shoulder. Pending serial Troponin, CT chest, and dispo. Last updated by Hillary Sampson at 10/10/20 15:59
[2020-10-10 15:26] LABS: Abs Immature Grans 0.03 10^3/uL (0.0-0.06); Absolute Basophil Count 0.07 10^3/uL (0.0-0.2); Absolute Lymphocyte Count 3.52 10^3/uL (1.2-3.4); Absolute Monocyte Count 0.77 10^3/uL (0.1-0.8); Basophils % 0.5; Eosinophils % 2.2; HCT 48.5 % (40.0-50.0); HGB 16.1 g/dL (13.5-17.5); Immature Grans % 0.2; Lymphocytes % 25.5; MCH 29.1 pg (27.0-33.0); MCHC 33.2 % (32.0-36.0); MCV 87.7 fL (80-95); MPV 9.6 fL (8.0-11.0); Monocytes % 5.6; Nucleated RBC 0 %; Platelet Count 289 10^3/uL (130-400); RBC 5.53 10^6/uL (4.36-5.78); RDW 13.2 % (11.8-14.1); RDW-SD 42.7 fL
[2020-10-10 15:27] LABS: Absolute Neutrophil Count 9.11 10^3/uL (1.2-6.7)
[2020-10-10] MEDS: Normal Saline 1,000 ML 150 ML IV (15:29)
[2020-10-10] MEDS: Aspirin 81 MG CHEW 324 MG CH (15:29)
[2020-10-10 15:37] LABS: ALT 60 U/L (16-63); AST 27 U/L (15-37); Albumin 3.4 g/dL (3.4-5.0); Alkaline Phosphatase 128 U/L (46-116); Anion Gap 5.3 mmol/L (3-11); BUN 15 mg/dL (7-18); Bilirubin, Total 0.4 mg/dL (0.2-1.0); CO2 33.7 mmol/L (21.0-32.0); CREATININE 0.9 mg/dL (0.70-1.30); Calcium 8.6 mg/dL (8.5-10.1); Chloride 99 mmol/L (98-107); Glucose 122 mg/dL (74-106); Magnesium 1.9 mg/dL (1.8-2.4); Potassium 3.5 mmol/L (3.5-5.1); Sodium 138 mmol/L (136-145); Total Protein 7.5 g/dL (6.4-8.2)
[2020-10-10 15:47] LABS: Troponin I < 0.05 ng/mL (<0.06)
[2020-10-10 16:04] VITALS: BP 143/121; PULSE 103; PULSE 98; RESP 19
[2020-10-10 16:19] VITALS: O2SAT 97
[2020-10-10] MEDS: Omnipaque 350 MG/ML 100 ML BTL IJ (16:20)
[2020-10-10] MEDS: Normal Saline - Diluent 50 ML VIAL IV (16:21)
[2020-10-10 16:26] LABS: Bilirubin Negative (Negative); Blood Negative (Negative); Clarity Clear (Clear); Glucose Negative (Negative); Ketones Negative (Negative); Leukocyte Esterase Negative (Negative); Nitrite Negative (Negative); Specific Gravity 1.025 (1.005-1.025); Urobilinogen 0.2 EU/dL (Up TO 0.2); pH 7.5 (5-8)
[2020-10-10 16:32] LABS: COVID-19 PCR Negative (Negative); Influenza A PCR Negative (Negative); Influenza B PCR Negative (Negative); RSV PCR Negative (Negative)
[2020-10-10 16:44] LABS: NT-proBNP 30 pg/mL (<300)
[2020-10-10 16:46] VITALS: BP 148/77; PULSE 103; RESP 22; O2SAT 96
--- NOTE | 2020-10-10 16:49 | DI.VRAD_ITS ---
PROCEDURE INFORMATION: Exam: CT Angiography Chest With Contrast Exam date and time: 10/10/2020 4:29 PM Age: 40 years old Clinical indication: Shortness of breath; Patient HX: SOB, R/O pe, chest pain TECHNIQUE: Imaging protocol: Computed tomographic angiography of the chest with contrast. 3D rendering (Not supervised by radiologist): MIP and/or 3D reconstructed images were created by the technologist. COMPARISON: No relevant prior studies available. FINDINGS: Pulmonary arteries: Normal. No pulmonary emboli. Aorta: Unremarkable. No aortic aneurysm. No aortic dissection. Lungs: Unremarkable. No consolidation. No masses. Pleural spaces: Unremarkable. No pneumothorax. No pleural effusion. Heart: Unremarkable. No cardiomegaly. No pericardial effusion. Lymph nodes: Unremarkable. No enlarged lymph nodes. Bones/joints: Mild chronic degenerative changes of the spine are present. Soft tissues: Unremarkable. IMPRESSION: No evidence of pulmonary embolism. Dictated and Authenticated by: Som Osman MD. Ordering:FREDERIC Thornton MD
[2020-10-10 16:50] LABS: Lipase 70 U/L (73-393)
--- NOTE | 2020-10-10 17:15 | DI.CT_ITS ---
EXAM: CT RENAL COLIC WO CLINICAL HISTORY: left flank pain. TECHNIQUE: Imaging Protocol: Axial computed tomography images with coronal and sagittal reformatted images were created and reviewed. COMPARISON: CT CT CHEST PE CTA from 10/10/2020 FINDINGS: There is contrast in the renal collecting system from the patient's CT angiography of the chest perfo rmed earlier in the day. The examination is limited due to patient motion artifact. ABDOMEN: Lung Bases: Normal where visualized. Liver: Normal density. No measurable mass. Gallbladder and biliary tract: No radiodense calculus or biliary ductal dilation. Pancreas: Normal density, no abnormal calcifications or inflammatory process. Spleen: Normal. Kidneys: The contrast in the collecting system may obscure any nonobstructing stones. Normal size, c ontour and axis.No radiodense stones or obstructive uropathy. No masses seen. Adrenal glands: No mass is seen. Lymph nodes: Within normal limits. Abdominal Aorta: Abdominal portion non-dilated. PELVIS: Bladder:Symmetric distention, no gross wall thickening. Bowel: No obstruction or bowel wall thickening. No evidence of appendicitis. Peritoneal cavity: No ascites, collection or mesenteric inflammatory response. No free air. Reproductive organs: Within normal limits. Bones: Within normal limits. Soft Tissues: Small fat containing left inguinal hernia. IMPRESSION: No acute abnormality. No evidence of hydronephrosis. RADIATION DOSE DELIVERED: 1,641.71mGy.cm Total DLP DATA REPOSITORY: All CT scans at this facility are submitted to the National Radiology Data Registry (NRDR) Dose Index Registry (DIR) with the [employer] (ACR). RADIATION OPTIMIZATION: All CT scans at this facility use at least one of these dose optimization te chniques: automated exposure control; mA and/or kV adjustment per patient size (includes targeted exa ms where dose is matched to clinical indication); or iterative reconstruction.
--- NOTE | 2020-10-10 18:09 | DI.VRAD_ITS ---
PROCEDURE INFORMATION: Exam: CT Abdomen And Pelvis Without Contrast Exam date and time: 10/10/2020 5:46 PM Age: 40 years old Clinical indication: Abdominal pain; Patient HX: Left flank pain; Additional info: HX of stones TECHNIQUE: Imaging protocol: Computed tomography of the abdomen and pelvis without contrast. COMPARISON: CT ABDOMEN PELVIS W 10/15/2018 9:41 AM FINDINGS: Liver: Normal. No mass. Gallbladder and bile ducts: Normal. No calcified stones. No ductal dilation. Pancreas: Normal. No ductal dilation. Spleen: Normal. No splenomegaly. Adrenal glands: Normal. No mass. Kidneys and ureters: Normal. No hydronephrosis. The ureters are well visualized with no evidence of ureteral obstruction. Stomach and bowel: Unremarkable. No obstruction. No mucosal thickening. Appendix: No evidence of appendicitis. Intraperitoneal space: Unremarkable. No free air. No significant fluid collection. Vasculature: Unremarkable. No abdominal aortic aneurysm. Lymph nodes: Unremarkable. No enlarged lymph nodes. Urinary bladder: Unremarkable as visualized. Reproductive: Unremarkable as visualized. Bones/joints: Chronic degenerative changes of the spine are present. Soft tissues: Morbid obesity is present. IMPRESSION: No acute findings. Dictated and Authenticated by: Som Osman MD. Ordering:INGE Her MD
[2020-10-10] MEDS: Ketorolac 30 MG/ML VIAL IVP (18:22)
[2020-10-10] MEDS: Acetaminophen 500 MG TAB 1000 MG PO (18:22)
[2020-10-10 18:58] LABS: Troponin I < 0.05 ng/mL (<0.06)
== END 2020-10-10 19:15 | disposition home or self-care (01) ==
PROVIDERS: Registered Nurse Emergency; Emergency Provider Physician Assistant; PCP Nurse Practitioner
DX: R07.81 Pleurodynia (principal); R10.12 Left upper quadrant pain; M54.5 Low back pain; Z87.442 Personal history of urinary calculi; Z03.818 Encounter for observation for suspected exposure to other biological agents ruled out
CPT/HCPCS: 36415; 71275; 80053; 83690; 93005; 96361; 96374; 96375; 96376; 99285; 74176; 81003; 83735; 83880; 84484; 85025; 93010; 99284; J1885; J3490

== ENCOUNTER 2020-10-25 03:31 | Outpatient (CLI) | payer MEDICARE, SELFPAY ==
[2020-10-25 12:32] LABS: Abs Immature Grans 0.04 10^3/uL (0.0-0.06); Absolute Basophil Count 0.09 10^3/uL (0.0-0.2); Absolute Eosinophil Count 0.29 10^3/uL (0.0-0.7); Absolute Monocyte Count 0.72 10^3/uL (0.1-0.8); Basophils % 0.8; Eosinophils % 2.5; HCT 47.1 % (40.0-50.0); HGB 15.9 g/dL (13.5-17.5); Immature Grans % 0.3; Lymphocytes % 24.5; MCH 28.9 pg (27.0-33.0); MCHC 33.8 % (32.0-36.0); MCV 85.5 fL (80-95); MPV 9.6 fL (8.0-11.0); Monocytes % 6.3; Neutrophils % 65.6; Nucleated RBC 0 %; Platelet Count 339 10^3/uL (130-400); RBC 5.51 10^6/uL (4.36-5.78); RDW 13.5 % (11.8-14.1); RDW-SD 42.2 fL; WBC 11.43 10^3/uL (4.4-10.8)
[2020-10-25 12:40] LABS: Hemoglobin A1C 6.1 % (<5.7)
[2020-10-25 12:51] LABS: ALT 55 U/L (16-63); AST 25 U/L (15-37); Albumin 3.7 g/dL (3.4-5.0); Alkaline Phosphatase 133 U/L (46-116); Anion Gap 11.2 mmol/L (3-11); BUN 16 mg/dL (7-18); Bilirubin, Total 0.3 mg/dL (0.2-1.0); CO2 27.8 mmol/L (21.0-32.0); CREATININE 0.9 mg/dL (0.70-1.30); Calcium 8.8 mg/dL (8.5-10.1); Calculated LDL 158 mg/dL (<100); Chloride 101 mmol/L (98-107); Cholesterol 218 mg/dL (<200); Folate 7.6 ng/mL (8.6-20.0); Glucose 106 mg/dL (74-106); HDL Cholesterol 38 mg/dL (40-60); Potassium 4.1 mmol/L (3.5-5.1); Sodium 140 mmol/L (136-145); TSH (W/Ref FT4) 4.35 uIU/mL (0.36-3.74); Total Protein 7.1 g/dL (6.4-8.2); Triglyceride 114 mg/dL (<150)
[2020-10-25 13:43] LABS: FREE T4 1.58 ng/dL (0.76-1.46)
[2020-10-26 10:45] LABS: Vitamin D 25 Total 9.8 ng/ml (30-100)
== END 2020-10-25 03:32 | disposition home or self-care (01) ==
LOC: LOS 03:32
PROVIDERS: Nurse Practitioner Family; PCP Nurse Practitioner; Visit Provider Nurse Practitioner Psychiatric/Mental Health
DX: F31.81 Bipolar II disorder (principal); F12.20 Cannabis dependence, uncomplicated; E66.9 Obesity, unspecified; Z79.899 Other long term (current) drug therapy
CPT/HCPCS: 36415; 80053; 80061; 82306; 82746; 83036; 84439; 84443; 85025

== ENCOUNTER 2021-02-09 02:33 | Outpatient (CLI) | payer MEDICARE, SELFPAY ==
[2021-02-09 12:41] LABS: ALT 36 U/L (16-63); AST 18 U/L (15-37); Albumin 3.3 g/dL (3.4-5.0); Alkaline Phosphatase 131 U/L (46-116); Bilirubin, Direct 0.1 mg/dL (0.0-0.2); Bilirubin, Total 0.4 mg/dL (0.2-1.0); TSH 1.64 uIU/mL (0.36-3.74); Total Protein 6.6 g/dL (6.4-8.2)
[2021-02-09 12:53] LABS: Calculated LDL 66 mg/dL (<100); Cholesterol 130 mg/dL (<200); HDL Cholesterol 42 mg/dL (40-60); Triglyceride 110 mg/dL (<150)
[2021-02-09 17:45] LABS: PSA, Screening 0.2 ng/mL (0.0-2.5)
== END 2021-02-09 02:34 | disposition home or self-care (01) ==
LOC: LOS 02:33
PROVIDERS: PCP Nurse Practitioner; Visit Provider Nurse Practitioner
DX: I10 Essential (primary) hypertension (principal); N13.9 Obstructive and reflux uropathy, unspecified; R74.8 Abnormal levels of other serum enzymes; Z12.5 Encounter for screening for malignant neoplasm of prostate
CPT/HCPCS: 36415; 80061; 80076; 84153; 84443

== ENCOUNTER → 2021-03-15 02:19 | Outpatient (CLI) | payer MEDICARE, SELFPAY ==
--- NOTE | 2021-03-15 07:00 | DI.US_ITS ---
Exam(s) US ABDOMEN LIMITED EXAM: US ABDOMEN LIMITED CLINICAL HISTORY: eval liver,ELEVATED ALK PHOS,R74.8 TECHNIQUE: Ultrasound abdomen performed using standard protocol. COMPARISON: CT CT ABDOMEN PELVIS W from 10/15/[address] CHEST PE CTA from 10/10/[address] CHEST PE CTA from 10/10/[address] RENAL COLIC WO from 10/10/[address] RENAL COLIC WO from 10/10/2020 FINDINGS: The exam is limited by the patient's body habitus. LIVER: The liver is mildly enlarged at 17.6 cm in length. The echogenicity is grossly normal. No gr oss focal liver lesions are seen.. GALLBLADDER: No evidence of cholelithiasis. No evidence of wall thickening. No pericholecystic fluid identified. HAQ'S SIGN: Negative. BILIARY SYSTEM: No intrahepatic or extrahepatic biliary ductal dilation. RIGHT KIDNEY: Normal size. No evidence of renal calculi. No evidence of hydronephrosis. No suspicious renal mass. No cyst identified. PANCREAS: Not well visualized. ABDOMINAL AORTA AND IVC: Visualized portions normal caliber. ASCITES: None seen. IMPRESSION: Limited exam due to patient body habitus. The liver is difficult to evaluate. Mild hepatic enlargem ent. DATA REPOSITORY:
== END ==
PROVIDERS: PCP Nurse Practitioner; Visit Provider Nurse Practitioner
DX: R16.0 Hepatomegaly, not elsewhere classified (principal); R74.8 Abnormal levels of other serum enzymes; E66.01 Morbid (severe) obesity due to excess calories; Z68.43 Body mass index [BMI] 50.0-59.9, adult
CPT/HCPCS: 76705

== ENCOUNTER → 2021-08-28 01:56 | Outpatient (CLI) | payer MEDICARE, SELFPAY ==
--- NOTE | 2021-08-28 06:45 | DI.US_ITS ---
Exam(s) US SCROTUM EXAM: US SCROTUM CLINICAL HISTORY: pain right testicle,n50.811 TECHNIQUE: Ultrasound of the testes performed using grayscale, color, and Doppler imaging. COMPARISON: US US ABDOMEN LIMITED from 03/15/2021 FINDINGS: RIGHT HEMISCROTUM: The right testicle exhibits normal size and echo architecture with no evidence of intratesticular mas s. Vascular flow was demonstrated within the right testicle, including arterial waveforms. The epididymis appears unremarkable. There is a solitary 2 millimeter spermatocele-epididymal head cy st.. There is no ipsilateral hydrocele nor varicocele. LEFT HEMISCROTUM: The left testicle exhibits normal size and echo architecture with no evidence of intratesticular mass . Vascular flow is demonstrated within the left testicle, including arterial waveforms. The epididymis appears unremarkable. There are no epididymal head cysts. However, there is a 5 mill imeter round cystic appendix epididymis Small hydrocele. No varicocele evident. IMPRESSION: 1. No evidence of testicular mass nor testicular torsion. 2. Small 2 millimeters spermatocele right-side 3. 5 millimeters cystic appendix epididymis on the left side with small amount of fluid-hydrocele on the left side. DATA REPOSITORY:
== END ==
PROVIDERS: PCP Nurse Practitioner; Visit Provider Nurse Practitioner
DX: N43.41 Spermatocele of epididymis, single; N43.2 Other hydrocele; N50.811 Right testicular pain
CPT/HCPCS: 76870

== ENCOUNTER 2021-10-17 01:29 | Outpatient (CLI) | payer MEDICARE, SELFPAY ==
[2021-10-17 10:45] LABS: Hemoglobin A1C 6.2 % (<5.7)
[2021-10-17 11:01] LABS: CREATININE 0.9 mg/dL (0.70-1.30); Calculated LDL 145 mg/dL (<100); Cholesterol 210 mg/dL (<200); HDL Cholesterol 41 mg/dL (40-60); TSH (W/Ref FT4) 4.25 uIU/mL (0.36-3.74); Triglyceride 121 mg/dL (<150)
[2021-10-17 11:20] LABS: FREE T4 1.22 ng/dL (0.76-1.46); GGT 141 U/L (15-85)
[2021-10-18 10:45] LABS: HBs Antibody, Qual Negative (See Note); HBs Antibody, Quant <3.1 mIU/mL (See Note); Hepatitis B Core Antibody Negative (Negative); Hepatitis B surface Ag Negative (Negative); Hepatitis C Ab w Rflx HCV PCR Negative (Negative)
== END 2021-10-17 01:30 | disposition home or self-care (01) ==
LOC: LBO 01:29
PROVIDERS: PCP Nurse Practitioner; Visit Provider Nurse Practitioner
DX: R73.03 Prediabetes (principal); I10 Essential (primary) hypertension; R74.8 Abnormal levels of other serum enzymes
CPT/HCPCS: 36415; 80061; 86704; 86706; 86803; 87340; 82565; 82977; 83036; 84439; 84443

== ENCOUNTER 2022-01-03 07:56 | Emergency (ER) | payer MEDICARE, SELFPAY ==
[2022-01-03 07:58] VITALS: BP 151/112; PULSE 75; RESP 16; TEMP 36.7; O2SAT 98
--- NOTE | 2022-01-03 08:00 | DI.RAD_ITS ---
Exam(s) XR ELBOW LT COMPLETE EXAM: XR ELBOW LT COMPLETE CLINICAL HISTORY: Fall, pain TECHNIQUE: COMPARISON: CR RIGHT ELBOW COMPLETE from 09/05/2010 FINDINGS: Three views were obtained. No gross joint effusion seen. There is an accessory ossicle of the media l epicondyle. Note is also made of some questionable lucencies projected through the distal humerus and coronoid process of the olecranon on the lateral view, occult fracture not excluded, additional e valuation with CT should be considered. IMPRESSION: RADIATION DOSE DELIVERED: Total DLP
--- NOTE | 2022-01-03 08:10 | ED.GENADUL_ITS ---
Discharge Plan Disposition Patient Disposition: HOME Condition: Improving Discharge Details Clinical Impression: Left elbow contusion Primary Care Provider: Valentine Ortiz ED Provider: Jozef Pulido Home Meds and New Rx's Prescriptions: New oxycodone 5 mg capsule 5 mg PO BID PRN (Reason: pain) Qty: 5 0RF Continued ibuprofen 800 mg tablet 800 mg PO TID PRN (Reason: pain) Qty: 60 0RF Latuda 20 mg tablet 20 mg PO QPM Rx Instructions: must administer with food (at least 350 calories) Latuda 80 mg tablet 80 mg PO DAILY chlorthalidone 25 mg tablet 25 mg PO HS Qty: 90 4RF atorvastatin 40 mg tablet 40 mg PO QPM Qty: 90 4RF cyclobenzaprine 10 mg tablet See Rx Instructions .ROUTE .COMPLEX Qty: 30 4RF Dose Instruction: TAKE ONE TABLET BY MOUTH AT BEDTIME NEEDED FOR MUSCLE SPASM Rx Instructions: TAKE ONE TABLET BY MOUTH AT BEDTIME NEEDED FOR MUSCLE SPASM levothyroxine 125 mcg tablet 125 mcg PO DAILY Qty: 90 4RF pregabalin 100 mg capsule 100 mg PO TID Qty: 90 5RF clonazepam 0.5 mg tablet 0.5 mg PO DAILY PRN Label Comments: TAKE 1 TABLET BY MOUTH ONCE A DAY ONLY IF NEEDED FOR IRRITABILITY OR HIGH ANXIETY Discharge Instructions Instructions: Contusion in Adults (ED) Additional Instructions: Your x-ray and subsequent CAT scan of the left elbow did not show an acute fract ure. You have a contusion and swelling. Wear sling as needed for comfort up to 7 days time. Apply ice 20 minutes at a time to reduce pain and swelling. Continue Tylenol and ibuprofen as needed for pain. As discussed you may use the oxycodone as needed for severe or breakthrough pain. Do not take this medication with your clonazepam or cyclobenzaprine. No alcohol or driving with the medication Medical Decision Making 41-year-old male presents stating that while riding his lawnmower on Saturday he fell backwards struck his left elbow on the hard metal decking. He was not injured in any other way. He has developed increasing pain particularly with movement of the left elbow over 2 days time. On exam he has pain with supination, palpation of the radial head as well as fairly diffusely throughout the elbow. Differential gnosis includes contusion, bursitis, sprain, underlying bony fracture. Patient given Tylenol, ice, referred for x-ray. There are some bony ossicles present on x-ray, patient referred for CT imaging which does not show acute fracture or joint effusion. Will place in a sling for comfort. Patient had ongoing pain and requested something for breakthrough pain. He was consented for the use for small number of oral narcotic analgesics. He is stable and appropriate for discharge to home HPI General Mode of arrival: ambulatory . Date/Time Provider Initiated Documentation: 01/03/22 08:00 . Limitations to Documentation: no limitations . Information obtained by: patient . History of Present Illness 41 year old M presents to the emergency department with the chief complaint of L elbow pain, described as moderate, Quality is described as dull and constant, and is localized to the left and upper extremity. Patient reports no radiation. Patient started experiencing this day(s) and it has been constant. Rest improves symptom(s), Patient did receive the following treatments prior to arrival, none Related Data Home Medications Medication Instructions Recorded Confirmed lurasidone 80 mg tablet (Latuda) 80 mg PO DAILY 08/31/19 01/03/22 lurasidone 20 mg tablet (Latuda) 20 mg PO QPM 08/30/20 01/03/22 clonazepam 0.5 mg tablet 0.5 mg PO DAILY PRN 10/10/20 01/03/22 chlorthalidone 25 mg tablet 25 mg PO HS #90 tabs 12/27/20 01/03/22 atorvastatin 40 mg tablet 40 mg PO QPM #90 tabs 11/03/21 01/03/22 cyclobenzaprine 10 mg tablet See Rx Instructions .Route 11/08/21 01/03/22 .COMPLEX #30 tabs levothyroxine 125 mcg tablet 125 mcg PO DAILY #90 tabs 11/23/21 01/03/22 ibuprofen 800 mg tablet 800 mg PO TID PRN pain #60 tabs 11/24/21 01/03/22 pregabalin 100 mg capsule 100 mg PO TID chronic pain #90 caps 12/07/21 01/03/22 oxycodone 5 mg capsule 5 mg PO BID PRN pain #5 caps 01/03/22 Previous Rx's Medication Instructions Recorded chlorthalidone 25 mg tablet 25 mg PO HS #90 tabs 12/27/20 atorvastatin 40 mg tablet 40 mg PO QPM #90 tabs 11/03/21 cyclobenzaprine 10 mg tablet See Rx Instructions .Route 11/08/21 .COMPLEX #30 tabs levothyroxine 125 mcg tablet 125 mcg PO DAILY #90 tabs 11/23/21 ibuprofen 800 mg tablet 800 mg PO TID PRN pain #60 tabs 11/24/21 pregabalin 100 mg capsule 100 mg PO TID chronic pain #90 caps 12/07/21 oxycodone 5 mg capsule 5 mg PO BID PRN pain #5 caps 01/03/22 Allergies Allergy/AdvReac Type Severity Reaction Status Date / Time amoxicillin Allergy anaphylaxis, Verified 01/03/22 08:04 rash, hives Penicillins Allergy anaphylaxis, Verified 01/03/22 08:04 hives, rash Sulfa (Sulfonamide Allergy breaks out Verified 01/03/22 08:04 Antibiotics) in hives, diarrhea, anaphylaxis clonidine AdvReac makes Verified 01/03/22 08:04 chest tight tramadol AdvReac I don't Verified 01/03/22 08:04 take tramadol. General Stated Complaint: Orthopedic CAROL: 4 Review of Systems Narrative: 6 systems reviewed and otherwise negative PFSH All Active Problems (Updated 01/03/22 @ 09:10 by Jozef Pulido MD) Left elbow contusion (Acute) Seasonal allergies (Acute) Chronic low back pain (Acute) Urinary incontinence (Acute) nocturnal Elevated alkaline phosphatase level (Acute) GGT also elevated- Abd US 06/25- liver with mild enlargement, no lesions. Hep panel neg Morbid obesity with BMI of 50.0-59.9, adult (Acute) Hyperlipidemia (Acute) Prediabetes (Acute) History of drug abuse (Acute) prescription pills, coke Hypothyroid (Chronic) Smoker (Chronic) 05/2021- 3 PPD 2021- 1.5 PPD Depressive disorder (Chronic) Bipolar I disorder (Chronic) Essential hypertension (Chronic) Attention deficit hyperactivity disorder, combined type (Chronic) Anxiety (Chronic) Obsessive-compulsive disorder (Chronic) Medical History Abdominal pain Dorsopathy, unspecified Gastroesophageal reflux disease Hernia, umbilical 11/11/[address] Sesay. Overweight Sensorineural hearing loss Umbilical hernia Surgical History History of umbilical hernia repair S/P tendon repair Status post tonsillectomy Tonsillectomy Family History Mother Depression Emphysema lung Stroke Asthma Hypertension Hyperlipidemia Father Diabetes Essential hypertension Alcohol abuse Grandmother Diabetes Cancer Sister Alcohol abuse Depression Sister No problems noted. Son Depression Social History Smoking/Tobacco Use Status: Current every day Tobacco Type: cigarettes Tobacco: How many years used: 26 Quit status: considering quitting Second Hand Exposure: Yes Smoking risk assessment performed?: Yes Alcohol Intake: never Drug use: Daily Substance use type: marijuana Details: last time used 2 days ago Caregiver/Support person: No Household members: spouse Communication Needs: None Pets and animals: Yes Sexually active: Yes Do you think of yourself as: straight/heterosexual What is your relationship status?: How often do you talk on the phone with friends or family?: three or more times per week How often do you get together with friends or relatives?: once per week How often do you attend anabaptist or alevism services?: decline to answer Do you belong to any clubs or organized social groups?: no Panel score (0-1 are the most socially isolated patients): 2 Frequency: does not exercise Special matt needs: No Do you feel safe at home: Yes Do you feel safe in your relationship?: Yes Exam Narrative Exam Narrative: GEN: awake, alert, oriented 3. Pleasant, well groomed, interactive. HEAD: Normocephalic, atraumatic ENT: Mucous membranes moist, oropharynx unremarkable, External ear exam unremarkable EYES: PERRL, EOMI NECK: Full ROM, no LUCIA, no menigismus CHEST/RESP: No respiratory distress EXT: Left elbow is slightly edematous, tender over lying the olecranon and tender with palpation of the radial head and with supination. Distal radial, median, ulnar nerve motor and sensory function is within normal limits. 2+ radial pulse bilaterally. Neuro: Grossly normal neurologic exam, conversant, interactive. Psych: Speech fluent, thoughts congruent, affect normal Course Vital Signs Vital signs: Vital Signs Temperature 36.7 C 01/03/22 07:58 Pulse 75 01/03/22 07:58 Respiratory Rate 16 01/03/22 07:58 Blood Pressure 151/112 H 01/03/22 07:58 Pulse Oximetry 98 01/03/22 07:58 Temperature 36.7 C 01/03/22 07:58 Temperature Source Oral 01/03/22 07:58 Pulse 75 01/03/22 07:58 Respiratory Rate 16 01/03/22 07:58 Respiratory Effort Non-Labored 01/03/22 08:01 Blood Pressure 151/112 H 01/03/22 07:58 Blood Pressure Position Sitting 01/03/22 07:58 Pulse Oximetry 98 01/03/22 07:58 Oxygen Delivery Method Room Air 01/03/22 07:58 Oxygen Flow Rate 0 01/03/22 07:58 Pain Level 10 01/03/22 08:02
[2022-01-03] MEDS: Acetaminophen 500 MG TAB 1000 MG PO (08:18)
--- NOTE | 2022-01-03 08:30 | DI.CT_ITS ---
Exam(s) CT UPPER EXTREMITY LT WO EXAM: CT UPPER EXTREMITY LT WO CLINICAL HISTORY: elbow pain, bony irregularity TECHNIQUE: COMPARISON: No exams were available for comparison FINDINGS: CT examination of the elbow was performed with multi slice acquisition and multiplanar reconstruction . No elbow joint effusion seen. There is soft tissue swelling adjacent to the olecranon. There is an accessory ossicle of the medial epicondyle of the humerus. There are small ossicles seen , presumably degenerative, adjacent to the coronoid process of the ulna. No acute fracture is seen. IMPRESSION: No evidence of acute fracture. No joint effusion seen. RADIATION DOSE DELIVERED: 150.28mGy.cm Total DLP !Error CTDIvol RADIATION OPTIMIZATION: All CT scans at this facility use at least one of these dose optimization te chniques: automated exposure control; mA and/or kV adjustment per patient size (includes targeted exa ms where dose is matched to clinical indication); or iterative reconstruction.
[2022-01-03] MEDS: oxyCODONE 5 MG TAB PO (09:12)
== END 2022-01-03 09:19 | disposition home or self-care (01) ==
PROVIDERS: Emergency Provider Emergency Medicine; PCP Nurse Practitioner
DX: S50.02XA Contusion of left elbow, initial encounter (principal); W22.09XA Striking against other stationary object, initial encounter
CPT/HCPCS: 99284; 73080; 73200; 99283

== ENCOUNTER 2022-02-10 09:22 | Emergency (ER) | payer MEDICARE, SELFPAY ==
[2022-02-10 09:25] VITALS: BP 156/103; PULSE 82; RESP 18; TEMP 36.2; O2SAT 99
--- NOTE | 2022-02-10 09:30 | DI.RAD_ITS ---
Exam(s) XR KNEE RT 3V AP,LAT,JODI EXAM: XR KNEE RT 3V AP,LAT,JODI CLINICAL HISTORY: Knee pain. TECHNIQUE: 2D digital imaging was performed of the right knee. Three views obtained. AP, lateral, M erchant and PA tunnel views were obtained. COMPARISON: CR XR knee RT 4V AP,lat,jodi,pat from 11/06/2018 FINDINGS: BONES: No acute fracture is present. No bony destructive lesion is seen. JOINTS: The knee is normally aligned. There does appear to be a tiny joint effusion. Minimal degener ative changes are seen in the knee. SOFT TISSUE: Normal. IMPRESSION: Minimal degenerative changes of the knee. Small joint effusion. DATA REPOSITORY: RADIATION DOSE DELIVERED:
--- NOTE | 2022-02-10 09:36 | ED.GENADUL_ITS ---
Discharge Plan Disposition Patient Disposition: HOME Condition: Stable Discharge Details Clinical Impression: Osteoarthritis of right knee, Right knee sprain Primary Care Provider: Valentine Ortiz ED Provider: Hillary Sampson Home Meds and New Rx's Prescriptions: Continued Latuda 20 mg tablet 20 mg PO QPM Rx Instructions: must administer with food (at least 350 calories) Latuda 80 mg tablet 80 mg PO DAILY chlorthalidone 25 mg tablet 25 mg PO HS Qty: 90 4RF atorvastatin 40 mg tablet 40 mg PO QPM Qty: 90 4RF cyclobenzaprine 10 mg tablet See Rx Instructions .ROUTE .COMPLEX Qty: 30 4RF Dose Instruction: TAKE ONE TABLET BY MOUTH AT BEDTIME NEEDED FOR MUSCLE SPASM Rx Instructions: TAKE ONE TABLET BY MOUTH AT BEDTIME NEEDED FOR MUSCLE SPASM levothyroxine 125 mcg tablet 125 mcg PO DAILY Qty: 90 4RF pregabalin 100 mg capsule 100 mg PO TID Qty: 90 5RF ibuprofen 800 mg tablet 800 mg PO TID PRN (Reason: pain) Qty: 30 0RF oxycodone 5 mg capsule 5 mg PO BID PRN (Reason: pain) Qty: 5 0RF clonazepam 0.5 mg tablet 0.5 mg PO DAILY PRN Label Comments: TAKE 1 TABLET BY MOUTH ONCE A DAY ONLY IF NEEDED FOR IRRITABILITY OR HIGH ANXIETY Discharge Instructions Instructions: Oxycodone, Rapid Release (By mouth), Knee Sprain (ED) Additional Instructions: Take the oxycodone as directed with food no driving or operating heavy machinery while on this medication. Rest ice compression elevation. Wear the hinged knee brace as needed for comfort. Use the crutches as tolerated. Weightbearing advance as tolerated. Follow-up with orthopedics if continued pain or problems in the next 2 to 3 weeks if needed. Please take Tylenol or Ibuprofen with food every 4-6 hours as needed for pain and swelling. Follow up with primary care provider in 3-5 days to discuss blood pressure your blood pressure was elevated the last couple of times you are here in the department.. Return to ED sooner if any worsening or concerns. Increase oral fluids. Referrals: Valentine Ortiz, REFRIGERATION ENGINEER [Primary Care Provider] - 1 week Medical Decision Making 41-year-old male presents to the ER with a chief complaint of right knee pain after stepping in a shallow hole on . He denies falling down he has increased pain with weightbearing. No obvious deformity or significant swelling noted. Past medical history includes hyperlipidemia, hypothyroidism, depression disorder, bipolar disorder, , obsessive-compulsive disorder, ADHD Of note patient's blood pressure is elevated at 156/103 does not take any blood pressure medication other than Chlorthalidone. Patient given oxycodone 5 mg that he is requesting pain medication prior to imaging. X-ray shows small right knee effusion and mild osteoarthritis changes. Will place patient in hinged knee brace have follow-up with orthopedics. Patient given 4 tablets of oxycodone to go in Department. Patient discharged demonstrated good use of the crutches and splint. Discussed home care and follow-up care and verbalized understanding. This text was generated using [employer] system, please disregard any oddities of phrase or misspellings. He will Imaging Data Radiologic Study: Imaging: X-Ray Radiologist's impression: Imaging protocol: Radiologic exam of the Right knee. Views: 3 views. COMPARISON: CR XR knee RT 4V AP,lat,carl,pat 11/06/2018 8:23 AM FINDINGS: Bones/joints: No fractures or suspicious osseous lesions are identified. Two small bone islands are again noted in the proximal tibia. Alignment is anatomic. Joint spaces are maintained. There are tiny marginal osteophytes in the medial and patellofemoral compartments. There is a small joint effusion. Soft tissues: Periarticular soft tissues are unremarkable. IMPRESSION: 1. 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 2. Small right knee effusion. Thank you for allowing us to participate in the care of your patient. Dictated and Authenticated by: Kaycee Gates MD [facility] General Mode of arrival: wheelchair . Date/Time Provider Initiated Documentation: 02/10/22 09:23 . Limitations to Documentation: no limitations . Information obtained by: patient, RN notes reviewed and old records reviewed . HPI Narrative: 41-year-old male presents to the ER with a chief complaint of right knee pain after stepping in a shallow hole on . He denies falling down he has increased pain with weightbearing. No obvious deformity or significant swelling noted. Past medical history includes hyperlipidemia, hypothyroidism, depression disorder, bipolar disorder, , obsessive-compulsive disorder, ADHD Of note patient's blood pressure is elevated at 156/103 does not take any blood pressure medication other than Chlorthalidone. Related Data Home Medications Medication Instructions Recorded Confirmed lurasidone 80 mg tablet (Latuda) 80 mg PO DAILY 08/31/19 02/10/22 lurasidone 20 mg tablet (Latuda) 20 mg PO QPM 08/30/20 02/10/22 clonazepam 0.5 mg tablet 0.5 mg PO DAILY PRN 10/10/20 02/10/22 chlorthalidone 25 mg tablet 25 mg PO HS #90 tabs 12/27/20 02/10/22 atorvastatin 40 mg tablet 40 mg PO QPM #90 tabs 11/03/21 02/10/22 cyclobenzaprine 10 mg tablet See Rx Instructions .Route 11/08/21 02/10/22 .COMPLEX #30 tabs levothyroxine 125 mcg tablet 125 mcg PO DAILY #90 tabs 11/23/21 02/10/22 pregabalin 100 mg capsule 100 mg PO TID chronic pain #90 caps 12/07/21 02/10/22 oxycodone 5 mg capsule 5 mg PO BID PRN pain #5 caps 01/03/22 02/10/22 ibuprofen 800 mg tablet 800 mg PO TID PRN pain #30 tabs 01/29/22 02/10/22 Previous Rx's Medication Instructions Recorded chlorthalidone 25 mg tablet 25 mg PO HS #90 tabs 12/27/20 atorvastatin 40 mg tablet 40 mg PO QPM #90 tabs 11/03/21 cyclobenzaprine 10 mg tablet See Rx Instructions .Route 11/08/21 .COMPLEX #30 tabs levothyroxine 125 mcg tablet 125 mcg PO DAILY #90 tabs 11/23/21 pregabalin 100 mg capsule 100 mg PO TID chronic pain #90 caps 12/07/21 oxycodone 5 mg capsule 5 mg PO BID PRN pain #5 caps 01/03/22 ibuprofen 800 mg tablet 800 mg PO TID PRN pain #30 tabs 01/29/22 Allergies Allergy/AdvReac Type Severity Reaction Status Date / Time amoxicillin Allergy anaphylaxis, Verified 02/10/22 09:29 rash, hives Penicillins Allergy anaphylaxis, Verified 02/10/22 09:29 hives, rash Sulfa (Sulfonamide Allergy breaks out Verified 02/10/22 09:29 Antibiotics) in hives, diarrhea, anaphylaxis clonidine AdvReac makes Verified 02/10/22 09:29 chest tight tramadol AdvReac I don't Verified 02/10/22 09:29 take tramadol. General Stated Complaint: Orthopedic CAROL: 4 Review of Systems All systems reviewed & are unremarkable except as noted in HPI and below Musculoskeletal Musculoskeletal: Reports as per HPI, Reports arthralgias and Reports joint swelling PFSH All Active Problems (Updated 02/10/22 @ 10:29 by Hillary Samposn NP) Osteoarthritis of right knee (Acute) Right knee sprain (Acute) Seasonal allergies (Acute) Chronic low back pain (Acute) Urinary incontinence (Acute) nocturnal Elevated alkaline phosphatase level (Acute) GGT also elevated- Abd US 06/25- liver with mild enlargement, no lesions. Hep panel neg Morbid obesity with BMI of 50.0-59.9, adult (Acute) Hyperlipidemia (Acute) Prediabetes (Acute) History of drug abuse (Acute) prescription pills, coke Hypothyroid (Chronic) Smoker (Chronic) 05/2021- 10/06 PPD 2021- 1.5 PPD Depressive disorder (Chronic) Bipolar I disorder (Chronic) Essential hypertension (Chronic) Attention deficit hyperactivity disorder, combined type (Chronic) Anxiety (Chronic) Obsessive-compulsive disorder (Chronic) Medical History Abdominal pain Dorsopathy, unspecified Gastroesophageal reflux disease Hernia, umbilical 11/11/[address] Sesay. Overweight Sensorineural hearing loss Umbilical hernia Surgical History History of umbilical hernia repair S/P tendon repair Status post tonsillectomy Tonsillectomy Family History Mother Depression Emphysema lung Stroke Asthma Hypertension Hyperlipidemia Father Diabetes Essential hypertension Alcohol abuse Grandmother Diabetes Cancer Sister Alcohol abuse Depression Sister No problems noted. Son Depression Social History Smoking/Tobacco Use Status: Current every day Tobacco Type: cigarettes Tobacco: How many years used: 26 Quit status: considering quitting Second Hand Exposure: Yes Smoking risk assessment performed?: Yes Alcohol Intake: never Drug use: Daily Substance use type: marijuana Details: last time used 2 days ago Caregiver/Support person: No Household members: spouse Communication Needs: None Pets and animals: Yes Sexually active: Yes Do you think of yourself as: straight/heterosexual What is your relationship status?: How often do you talk on the phone with friends or family?: three or more times per week How often do you get together with friends or relatives?: once per week How often do you attend sikhism or methodist services?: decline to answer Do you belong to any clubs or organized social groups?: no Panel score (0-1 are the most socially isolated patients): 2 Frequency: does not exercise Special matt needs: No Do you feel safe at home: Yes Do you feel safe in your relationship?: Yes Exam Extrem Right lower extremity: knee Details: normal to inspection, tenderness and knee ligament exam normal; no swelling, no ecchymosis, no deformity and no unusual warmth Course Vital Signs Vital signs: Vital Signs Temperature 36.2 C L 02/10/22 09:25 Pulse 82 02/10/22 09:25 Respiratory Rate 18 02/10/22 09:25 Blood Pressure 156/103 H 02/10/22 09:25 Pulse Oximetry 99 02/10/22 09:25 Temperature 36.2 C L 02/10/22 09:25 Temperature Source Temporal Artery Scan 02/10/22 09:25 Pulse 82 02/10/22 09:25 Respiratory Rate 18 02/10/22 09:25 Respiratory Effort 02/10/22 09:28 Blood Pressure 156/103 H 02/10/22 09:25 Blood Pressure Position Sitting 02/10/22 09:25 Pulse Oximetry 99 02/10/22 09:25 Oxygen Delivery Method Room Air 02/10/22 09:25 Oxygen Flow Rate 0 02/10/22 09:25 Pain Level 10 02/10/22 09:31
[2022-02-10] MEDS: oxyCODONE 5 MG TAB PO (09:47)
--- NOTE | 2022-02-10 10:18 | DI.VRAD_ITS ---
PROCEDURE INFORMATION: Exam: XR Right Knee Exam date and time: 02/10/2022 9:55 AM Age: 41 years old Clinical indication: Pain; Knee; Right TECHNIQUE: Imaging protocol: Radiologic exam of the Right knee. Views: 3 views. COMPARISON: CR XR knee RT 4V AP,lat,carl,pat 11/06/2018 8:23 AM FINDINGS: Bones/joints: No fractures or suspicious osseous lesions are identified. Two small bone islands are again noted in the proximal tibia. Alignment is anatomic. Joint spaces are maintained. There are tiny marginal osteophytes in the medial and patellofemoral compartments. There is a small joint effusion. Soft tissues: Periarticular soft tissues are unremarkable. IMPRESSION: 1. 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 2. Small right knee effusion. Dictated and Authenticated by: Kaycee Gates MD. Ordering:FREDERIC Thornton MD
== END 2022-02-10 10:42 | disposition home or self-care (01) ==
PROVIDERS: Emergency Provider Registered Nurse Emergency; PCP Nurse Practitioner
DX: M17.11 Unilateral primary osteoarthritis, right knee (principal); S83.8X1A Sprain of other specified parts of right knee, initial encounter; X50.1XXA Overexertion from prolonged static or awkward postures, initial encounter
CPT/HCPCS: 29505; 73562; 99283

== ENCOUNTER 2022-07-22 09:21 | Emergency (ER) | payer OTHER, SELFPAY ==
[2022-07-22 09:34] VITALS: BP 136/84; PULSE 88; RESP 16; TEMP 36.8; O2SAT 96
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
[2022-07-22] MEDS: Ketorolac 15 MG/ML VIAL IVP (10:33)
[2022-07-22] MEDS: MORPHine 4 MG/ML SYR IVP (10:34)
[2022-07-22] MEDS: Normal Saline 500 ML IV (10:34)
[2022-07-22 10:38] LABS: Abs Immature Grans 0.07 10^3/uL (0.0-0.06); Absolute Eosinophil Count 0.18 10^3/uL (0.0-0.7); Absolute Lymphocyte Count 2.92 10^3/uL (1.2-3.4); Absolute Monocyte Count 0.73 10^3/uL (0.1-0.8); Basophils % 0.3; HCT 43.9 % (40.0-50.0); HGB 14.9 g/dL (13.5-17.5); Immature Grans % 0.4; Lymphocytes % 16.4; MCH 30.8 pg (27.0-33.0); MCHC 33.9 % (32.0-36.0); MCV 91 fL (80-95); Monocytes % 4.1; Neutrophils % 77.8; Platelet Count 305 10^3/uL (130-400); RBC 4.84 10^6/uL (4.36-5.78); RDW 13.4 % (11.8-14.1); RDW-SD 45.2 fL; WBC 17.81 10^3/uL (4.4-10.8)
[2022-07-22 10:41] LABS: Absolute Basophil Count 0.05 10^3/uL (0.0-0.2); Absolute Neutrophil Count 13.86 10^3/uL (1.2-6.7)
[2022-07-22] MEDS: Omnipaque 350 MG/ML 100 ML BTL IJ (10:52)
[2022-07-22] MEDS: Normal Saline - Diluent 50 ML VIAL IJ (10:53)
[2022-07-22 10:54] LABS: ALT 29 U/L (16-63); AST 19 U/L (15-37); Albumin 2.9 g/dL (3.4-5.0); Alkaline Phosphatase 117 U/L (46-116); Anion Gap 6.3 mmol/L (3-11); BUN 34 mg/dL (7-18); Bilirubin, Total 0.4 mg/dL (0.2-1.0); CO2 33.7 mmol/L (21.0-32.0); CREATININE 1.2 mg/dL (0.70-1.30); Calcium 8.7 mg/dL (8.5-10.1); Chloride 100 mmol/L (98-107); Estimated GFR 76.95 (mL/min/1.73m2); Glucose 116 mg/dL (74-106); Lipase 134 U/L (73-393); Potassium 3.1 mmol/L (3.5-5.1); Sodium 140 mmol/L (136-145); Total Protein 7.3 g/dL (6.4-8.2)
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
[2022-07-22] MEDS: HYDROmorphone 2 MG/ML SYR 1 MG IM (11:31)
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
[2022-07-22] MEDS: Lidocaine 5% Patch 1 PATCH TP (11:40)
[2022-07-22 11:41] VITALS: BP 128/88; PULSE 82; TEMP 36.1; O2SAT 97
--- NOTE | 2022-07-22 13:38 | NUR.NOTE ---
referral to cm for surgeryNursing Note:
--- NOTE | 2022-07-22 14:28 | PDOC.ERCMACT ---
- If Service Date Differs Date of service: 07/22/22 Time of Service: 14:28 Care Management Activity Note Kerwin is seen in the ED for pneumonia and a sternal fracture. At the request of ED provider, CM coordinates a referral to [facility] to assist Kerwin in obtaining a follow up appointment.
== END 2022-07-22 12:02 | disposition home or self-care (01) ==
PROVIDERS: Emergency Provider Student in an Organized Health Care Education/Training Program; PCP Nurse Practitioner Family
DX: S22.20XA Unspecified fracture of sternum, initial encounter for closed fracture (principal); J18.9 Pneumonia, unspecified organism; R10.816 Epigastric abdominal tenderness; V47.6XXA Car passenger injured in collision with fixed or stationary object in traffic accident, initial encounter; Y92.410 Unspecified street and highway as the place of occurrence of the external cause
CPT/HCPCS: 74177; 80053; 83690; 96361; 96372; 96374; 96375; 99285; 71260; 85025; 99284; J1170; J1885; J2270; J3490

== ENCOUNTER → 2022-08-01 11:03 | Outpatient (BNVA) | payer OTHER, SELFPAY | PROVIDERS: PCP Nurse Practitioner Family; Referring Provider Nurse Practitioner Family; Visit Provider Surgery | DX: X58.XXXA Exposure to other specified factors, initial encounter (principal); S22.20XA Unspecified fracture of sternum, initial encounter for closed fracture | CPT/HCPCS: 99213 ==

== ENCOUNTER 2022-08-10 08:36 | Emergency (ER) | payer OTHER, SELFPAY ==
[2022-08-10] VITALS (13 sets, daily range): BP systolic 108–140; BP diastolic 61–95; PULSE 77–99; RESP 16–22; TEMP 36.6–36.9; O2SAT 97–98
--- NOTE | 2022-08-10 08:30 | RT.EKG_ITS ---
APPROVED REPORT Exam: Resting ECG Reason for Exam: Chest pain Patient Location: E HR:92 bpm ECG Measurements Heart Rate 92 AXIS OK 152 P 65 QRSd 100 QRS 58 QT 356 T 35 QTc 440 Conclusion Sinus rhythm...normal P axis, V-rate 60- 99
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
[2022-08-10 09:41] LABS: Abs Immature Grans 0.05 10^3/uL (0.0-0.06); Absolute Basophil Count 0.08 10^3/uL (0.0-0.2); Absolute Eosinophil Count 0.11 10^3/uL (0.0-0.7); Absolute Monocyte Count 0.83 10^3/uL (0.1-0.8); Basophils % 0.6; Eosinophils % 0.8; HCT 45.4 % (40.0-50.0); HGB 15.1 g/dL (13.5-17.5); Immature Grans % 0.4; Lymphocytes % 22.6; MCH 30.1 pg (27.0-33.0); MCHC 33.3 % (32.0-36.0); MCV 91 fL (80-95); MPV 9.1 fL (8.0-11.0); Monocytes % 5.9; Neutrophils % 69.7; Platelet Count 397 10^3/uL (130-400); RBC 5.01 10^6/uL (4.36-5.78); RDW 13.2 % (11.8-14.1); RDW-SD 44.1 fL; WBC 14.05 10^3/uL (4.4-10.8)
[2022-08-10 09:53] LABS: Absolute Lymphocyte Count 3.18 10^3/uL (1.2-3.4); Absolute Neutrophil Count 9.79 10^3/uL (1.2-6.7)
[2022-08-10 09:57] LABS: Prothrombin Time 9.7 sec (9.3-11.0)
[2022-08-10 10:05] LABS: ALT 23 U/L (16-63); AST 18 U/L (15-37); Albumin 3.5 g/dL (3.4-5.0); Alkaline Phosphatase 119 U/L (46-116); Anion Gap 5.1 mmol/L (3-11); BUN 21 mg/dL (7-18); Bilirubin, Total 0.2 mg/dL (0.2-1.0); CO2 31.9 mmol/L (21.0-32.0); Calcium 9.2 mg/dL (8.5-10.1); Chloride 100 mmol/L (98-107); Estimated GFR 95.77 (mL/min/1.73m2); Glucose 93 mg/dL (74-106); Magnesium 2.1 mg/dL (1.8-2.4); Potassium 3.8 mmol/L (3.5-5.1); Sodium 137 mmol/L (136-145); Troponin I < 50 ng/L (<or=60)
[2022-08-10 10:18] LABS: D-Dimer 744 ng/mlFEU (<500)
[2022-08-10 10:35] LABS: PTT Activated 23.9 sec (21.0-27.5)
[2022-08-10] MEDS: Normal Saline - Diluent 50 ML VIAL IV (11:52)
[2022-08-10] MEDS: Omnipaque 350 MG/ML 500 ML BTL-Imaging package 100 ML IJ (11:53)
--- NOTE | 2022-08-10 11:59 | DI.CT_ITS ---
Exam(s) CT CHEST PE CTA EXAM: CT CHEST PE CTA CLINICAL HISTORY: CP, elevated dimer. TECHNIQUE: Imaging Protocol: Axial CT angiography was performed with multi-slice acquisition and mu lti-planar reconstructions as well as axial, coronal and sagittal MIP reconstructions. CONTRAST MATERIAL: Intravenous: Omnipaque 350 Contrast volume:100 ml COMPARISON: CT CT CHEST/ABD/PEL W from 07/22/2022 FINDINGS: Exam somewhat limited due to respiratory motion. Pulmonary Arteries: No evidence of filling defect to suggest pulmonary emboli. Tracheobronchial tree: Patent where visualized. Mediastinum and Becki: No dominant adenopathy or fluid collection. Pulmonary parenchyma: No consolidation or dominant measurable mass. Pleura: No effusion or pneumothorax. Heart: The heart is not dilated. No coronary artery calcifications are seen. Aorta: Thoracic aorta non-dilated. No aneurysm. No dissection. Upper abdomen: Unremarkable. Bones: Unremarkable for age. Soft tissues: Significant bilateral gynecomastia, roughly stable from prior. IMPRESSION: No evidence of pulmonary embolism or other acute abnormality.. RADIATION DOSE DELIVERED: Total DLP DATA REPOSITORY: All CT scans at this facility are submitted to the National Radiology Data Registry (NRDR) Dose Index Registry (DIR) with the [employer] (A[employer]). RADIATION OPTIMIZATION: All CT scans at this facility use at least one of these dose optimization te chniques: automated exposure control; mA and/or kV adjustment per patient size (includes targeted exa ms where dose is matched to clinical indication); or iterative reconstruction.
[2022-08-10] MEDS: Ketorolac 30 MG/ML VIAL IVP (12:18)
[2022-08-10] MEDS: MORPHine 4 MG/ML SYR IVP (12:20)
== END 2022-08-10 12:36 | disposition home or self-care (01) ==
PROVIDERS: Emergency Provider Physician Assistant; PCP Nurse Practitioner Family
DX: R07.2 Precordial pain (principal); I10 Essential (primary) hypertension
CPT/HCPCS: 36415; 71275; 80053; 93005; 96374; 96375; 99285; 71046; 83735; 84484; 85025; 85379; 85610; 85730; 93010; 99284; J1885; J2270

== ENCOUNTER → 2022-08-22 14:02 | Outpatient (BNVA) | payer OTHER, SELFPAY | PROVIDERS: PCP Nurse Practitioner Family; Referring Provider Nurse Practitioner Family; Visit Provider Surgery | DX: S22.20XD Unspecified fracture of sternum, subsequent encounter for fracture with routine healing (principal); X58.XXXD Exposure to other specified factors, subsequent encounter; F17.210 Nicotine dependence, cigarettes, uncomplicated | CPT/HCPCS: 99213 ==

== ENCOUNTER 2022-11-14 01:24 | Emergency (ER) | payer OTHER, SELFPAY ==
[2022-11-14 01:24] VITALS: BP 130/72; PULSE 84; RESP 20; TEMP 36.6
--- NOTE | 2022-11-14 01:32 | ED.GENADUL_ITS ---
Discharge Plan Disposition Patient Disposition: Against Medical Advice Condition: Serious Discharge Details Clinical Impression: Opiate overdose Primary Care Provider: Jeromy Holden ED Provider: Paul Guajardo Home Meds and New Rx's Prescriptions: Continued oxycodone-acetaminophen [Percocet] 5-325 mg tablet 1 tab PO Q8H MDD 3 tabs PRN (Reason: pain) Qty: 24 0RF atorvastatin 40 mg tablet 40 mg PO QPM Qty: 90 4RF levothyroxine 125 mcg tablet 125 mcg PO DAILY Qty: 90 4RF amitriptyline 75 mg tablet 75 mg PO QHS Rx Instructions: 03/19/22-Rx'd by SONYA/tarun chlorthalidone 25 mg tablet 25 mg PO HS Qty: 90 0RF lisinopril 30 mg tablet 30 mg PO DAILY Qty: 90 3RF cyclobenzaprine 10 mg tablet See Rx Instructions .ROUTE .COMPLEX Qty: 30 1RF Dose Instruction: TAKE ONE TABLET BY MOUTH AT BEDTIME NEEDED FOR MUSCLE SPASM Rx Instructions: TAKE ONE TABLET BY MOUTH AT BEDTIME NEEDED FOR MUSCLE SPASM ibuprofen 800 mg tablet 800 mg PO BID PRN (Reason: pain) Qty: 90 0RF pregabalin 100 mg capsule 100 mg PO TID Qty: 270 3RF acetaminophen [Tylenol] 325 mg Capsule 650 mg PO DAILY melatonin 10 mg Tablet 10 mg PO HS PRN Discharge Instructions Instructions: Opioid Use Disorder (ED) Additional Instructions: you chose to leave against medical advise follow up as soon as possible with your primary care provider you can return to the emergency department at any time Medical Decision Making 42 yo male with hx of bipolar, prior substance abuse, who comes in with ems after he lost consciousness after smoking fentanyl. EMS was called and on arrival he was unresponsive with a pulse, they gave 3 doses of intransal narcan and he slowly regained consciousness and on arrival in the ED is caox4. He was able to walk from the ambulance into the department with a normal gait. He denies any pain, no recent fevers or chills. He denies other substance abuse, denies any si/hi. He is caox4 speaking clearly in no distress. He has no focal motor or sensation deficits, no signs of trauma to the head. He is clinically sober and has capacity to make his own decisions. I recommended observing in the ED for need for more narcan and also obtaining further testing including ekg/troponin, cbc, cmp and possibly imaging of the head. He declines to have this done and doesn't want to stay for observation. He understands risks of leaving including and permanent disability and is willing to accept these risks. He is choosing to leave AGAINST MEDICAL ADVISE. He understands that he can return if he changes his mind and advised to f/u with pcp tato. He declined narcan for home use. Differential Diagnosis Differential Diagnosis: opiate overdose, drug abuse HPI General Mode of arrival: EMS . Date/Time Provider Initiated Documentation: 11/14/22 01:29 . Limitations to Documentation: no limitations . Information obtained by: patient and EMS . History of Present Illness 42 year old M presents to the emergency department with the chief complaint of fentanyl overdose, described as moderate, Patient started experiencing this hour(s) (1) and it has been now resolved. No relieving factors improve symptom(s), No exacerbating factors reported . Patient notes no other symptoms.. Related Data Home Medications Medication Instructions Recorded Confirmed atorvastatin 40 mg tablet 40 mg PO QPM #90 tabs 11/03/21 08/22/22 levothyroxine 125 mcg tablet 125 mcg PO DAILY #90 tabs 11/23/21 08/22/22 amitriptyline 75 mg tablet 75 mg PO QHS 03/19/22 08/22/22 chlorthalidone 25 mg tablet 25 mg PO HS #90 tabs 03/26/22 08/22/22 lisinopril 30 mg tablet 30 mg PO DAILY #90 tabs 07/18/22 08/22/22 acetaminophen 325 mg capsule 650 mg PO DAILY 07/22/22 08/22/22 (Tylenol) melatonin 10 mg tablet 10 mg PO HS PRN 07/22/22 08/22/22 oxycodone-acetaminophen 5 mg-325 1 tab PO Q8H PRN pain #24 tabs 08/14/22 08/22/22 mg tablet (Percocet) cyclobenzaprine 10 mg tablet See Rx Instructions .Route 10/03/22 .COMPLEX #30 tabs ibuprofen 800 mg tablet 800 mg PO BID PRN pain #90 tabs 10/03/22 pregabalin 100 mg capsule 100 mg PO TID chronic pain #270 11/01/22 caps Previous Rx's Medication Instructions Recorded atorvastatin 40 mg tablet 40 mg PO QPM #90 tabs 11/03/21 levothyroxine 125 mcg tablet 125 mcg PO DAILY #90 tabs 11/23/21 chlorthalidone 25 mg tablet 25 mg PO HS #90 tabs 03/26/22 lisinopril 30 mg tablet 30 mg PO DAILY #90 tabs 07/18/22 oxycodone-acetaminophen 5 mg-325 1 tab PO Q8H PRN pain #24 tabs 08/14/22 mg tablet (Percocet) cyclobenzaprine 10 mg tablet See Rx Instructions .Route 10/03/22 .COMPLEX #30 tabs ibuprofen 800 mg tablet 800 mg PO BID PRN pain #90 tabs 10/03/22 pregabalin 100 mg capsule 100 mg PO TID chronic pain #270 11/01/22 caps Allergies Allergy/AdvReac Type Severity Reaction Status Date / Time amoxicillin Allergy anaphylaxis, Verified 08/22/22 14:11 rash, hives Penicillins Allergy anaphylaxis, Verified 08/22/22 14:11 hives, rash Sulfa (Sulfonamide Allergy breaks out Verified 08/22/22 14:11 Antibiotics) in hives, diarrhea, anaphylaxis clonidine AdvReac makes Verified 08/22/22 14:11 chest tight tramadol AdvReac I don't Verified 08/22/22 14:11 take tramadol. General Stated Complaint: OD/Poison CAROL: 3 Review of Systems All systems reviewed & are unremarkable except as noted in HPI and below Constitutional Constitutional: Denies chills and Denies fever(s) Cardiovascular Cardiovascular: Denies chest pain and Denies dyspnea Respiratory Respiratory: Denies cough and Denies dyspnea Gastrointestinal Gastrointestinal: Denies abdominal pain, Denies nausea and Denies vomiting Integumentary/Breasts Skin/Breast: Denies rash Psychiatric Psychiatric: Denies depression PFSH All Active Problems (Updated 11/14/22 @ 01:33 by Paul Guajardo MD) Opiate overdose (Acute) COVID-19 virus infection (Acute ~05/2022) Abdominal pain (Acute) Back pain (Acute) Seasonal allergies (Acute) Chronic low back pain (Acute) Urinary incontinence (Acute) nocturnal Elevated alkaline phosphatase level (Acute) GGT also elevated- Abd US 06/25- liver with mild enlargement, no lesions. Hep panel neg Morbid obesity with BMI of 50.0-59.9, adult (Acute) Hyperlipidemia (Acute) Prediabetes (Acute) History of drug abuse (Acute) prescription pills, coke Hypothyroid (Chronic) Smoker (Chronic) 05/2021- 3 PPD 2021- 1.5 PPD Depressive disorder (Chronic) Bipolar I disorder (Chronic) Essential hypertension (Chronic) Attention deficit hyperactivity disorder, combined type (Chronic) Anxiety (Chronic) Obsessive-compulsive disorder (Chronic) Medical History Abdominal pain Dorsopathy, unspecified Gastroesophageal reflux disease Hernia, umbilical 11/11/[address] Sesay. Overweight Sensorineural hearing loss Umbilical hernia Surgical History History of umbilical hernia repair S/P tendon repair Status post tonsillectomy Tonsillectomy Family History Mother Depression Emphysema lung Stroke Asthma Hypertension Hyperlipidemia Father Diabetes Essential hypertension Alcohol abuse Grandmother Diabetes Cancer Sister Alcohol abuse Depression Sister No problems noted. Son Depression Social History Smoking/Tobacco Use Status: Current every day Tobacco Type: cigarettes Tobacco: How many years used: 26 Quit status: considering quitting Second Hand Exposure: Yes Smoking risk assessment performed?: Yes Alcohol Intake: never Drug use: Daily Substance use type: marijuana, heroin and other Details: last time used 2 days ago Caregiver/Support person: No Household members: spouse Communication Needs: None Pets and animals: Yes Sexually active: Yes Do you think of yourself as: straight/heterosexual What is your relationship status?: How often do you talk on the phone with friends or family?: three or more times per week How often do you get together with friends or relatives?: once per week How often do you attend restorationism or jew services?: decline to answer Do you belong to any clubs or organized social groups?: no Panel score (0-1 are the most socially isolated patients): 2 Frequency: does not exercise Special matt needs: No Do you feel safe at home: Yes Do you feel safe in your relationship?: Yes Exam Const General: no acute distress Orientation: alert HENMT Head: normal to inspection Ears: external ears normal General nose exam: external nose normal Mouth: moist mucous membranes Eyes General: appearance normal, both eyes and all related structures Neck Neck: normal visual inspection Resp Effort & Inspection: normal respiratory effort and able to speak in complete sentences Cardio Rate: regular rate Skin General skin exam: no rashes or lesions noted Neuro General: patient alert and patient oriented x3 Extrem General: normal to inspection Psych Mental Status: mental status grossly normal Course Vital Signs Vital signs: Vital Signs Temperature 36.6 C 11/14/22 01:24 Pulse 84 11/14/22 01:24 Respiratory Rate 20 11/14/22 01:24 Blood Pressure 130/72 11/14/22 01:24 Temperature 36.6 C 11/14/22 01:24 Temperature Source Oral 11/14/22 01:24 Pulse 84 11/14/22 01:24 Respiratory Rate 20 11/14/22 01:24 Respiratory Effort Normal 11/14/22 01:27 Respiratory Depth Normal 11/14/22 01:27 Respiratory Pattern Normal 11/14/22 01:27 Blood Pressure 130/72 11/14/22 01:24 Blood Pressure Position Sitting 11/14/22 01:24 Oxygen Delivery Method Room Air 11/14/22 01:24 Oxygen Flow Rate 0 11/14/22 01:24
--- NOTE | 2022-11-14 01:59 | NUR.NOTE ---
Nursing Note: Patient refusing to have blood drawn and refusing to stay for monitoring of VS. States, I am fine, I just want to go home. Patient educated on risk involved with leaving AMA, patient verbalized understanding and continue requesting to leave. MD made aware.
--- NOTE | 2022-11-15 12:32 | NUR.NOTE ---
Nursing Note:Accessed patient chart to determine how many EKG orders were in the chart from the ED. There was an outstanding EKG in ordered status. There are no EKG's in the [employer] system that are outstanding. EKG order was deleted
== END 2022-11-14 01:51 | disposition left against medical advice (07) ==
LOC: ER 02:07
PROVIDERS: Emergency Provider Emergency Medicine; PCP Nurse Practitioner Family
DX: T40.411A Poisoning by fentanyl or fentanyl analogs, accidental (unintentional), initial encounter (principal)
CPT/HCPCS: 99283

== ENCOUNTER 2022-11-14 02:59 | Emergency (ER) | payer OTHER, SELFPAY ==
[2022-11-14 03:00] VITALS: BP 111/61; PULSE 78; RESP 21; TEMP 36.4; O2SAT 94
--- NOTE | 2022-11-14 03:14 | W.ED.GENAD ---
Discharge Plan Disposition Patient Disposition: Home Condition: Stable Discharge Details Clinical Impression: Opiate use Primary Care Provider: Jeromy Holden ED Provider: Paul Guajardo [place] Meds and New Rx's Prescriptions: Continued oxycodone-acetaminophen [Percocet] 5-325 mg tablet 1 tab PO Q8H MDD 3 tabs PRN (Reason: pain) Qty: 24 0RF atorvastatin 40 mg tablet 40 mg PO QPM Qty: 90 4RF levothyroxine 125 mcg tablet 125 mcg PO DAILY Qty: 90 4RF amitriptyline 75 mg tablet 75 mg PO QHS Rx Instructions: 03/19/22-Rx'd by SONYA/pps chlorthalidone 25 mg tablet 25 mg PO HS Qty: 90 0RF lisinopril 30 mg tablet 30 mg PO DAILY Qty: 90 3RF cyclobenzaprine 10 mg tablet See Rx Instructions .ROUTE .COMPLEX Qty: 30 1RF Dose Instruction: TAKE ONE TABLET BY MOUTH AT BEDTIME NEEDED FOR MUSCLE SPASM Rx Instructions: TAKE ONE TABLET BY MOUTH AT BEDTIME NEEDED FOR MUSCLE SPASM ibuprofen 800 mg tablet 800 mg PO BID PRN (Reason: pain) Qty: 90 0RF pregabalin 100 mg capsule 100 mg PO TID Qty: 270 3RF acetaminophen [Tylenol] 325 mg Capsule 650 mg PO DAILY melatonin 10 mg Tablet 10 mg PO HS PRN Discharge Instructions Additional Instructions: follow up with your primary care provider if you feel more ill, have severe pain or difficulty breathing return to the emergency department Medical Decision Making 42 yo male with hx of opiate use disorder who received narcan earlier tonight by ems and left ama earlier instead of being observed, check's back in with complaint to me of I want a bed to lay in. He never left the waiting room and was unable to find a ride home and lives in [place] which is too far to walk. He denies any pain or other symptoms, is caox4 with steady gait. He is approximately 3 hours from when he last needed narcan and he inhaled fentanyl so is beyond time for needing observation. Offered to let him sleep in a room off the waiting room until the AM when he can get a ride which he was in agreement with. He had no acute medical complaints. Differential Diagnosis Differential Diagnosis: opiate use disorder HPI General Mode of arrival: ambulatory. Date/Time Provider Initiated Documentation: 04/12/23 03:00. Limitations to Documentation: no limitations. Information obtained by: patient. History of Present Illness 42 year old M presents to the emergency department with the chief complaint of I want a bed to lay down in, described as mild, Patient started experiencing this hour(s) (2) and it has been constant. No relieving factors improve symptom(s), No exacerbating factors reported . Patient notes denies chest pain and fever/chills. Patient did receive the following treatments prior to arrival, none Related Data Home Medications Medication Instructions Recorded Confirmed atorvastatin 40 mg tablet 40 mg PO QPM #90 tabs 11/03/21 08/22/22 levothyroxine 125 mcg tablet 125 mcg PO DAILY #90 tabs 11/23/21 08/22/22 amitriptyline 75 mg tablet 75 mg PO QHS 03/19/22 08/22/22 chlorthalidone 25 mg tablet 25 mg PO HS #90 tabs 03/26/22 08/22/22 lisinopril 30 mg tablet 30 mg PO DAILY #90 tabs 07/18/22 08/22/22 acetaminophen 325 mg capsule 650 mg PO DAILY 07/22/22 08/22/22 (Tylenol) melatonin 10 mg tablet 10 mg PO HS PRN 07/22/22 08/22/22 oxycodone-acetaminophen 5 mg-325 1 tab PO Q8H PRN pain #24 tabs 08/14/22 08/22/22 mg tablet (Percocet) cyclobenzaprine 10 mg tablet See Rx Instructions .Route 10/03/22 .COMPLEX #30 tabs ibuprofen 800 mg tablet 800 mg PO BID PRN pain #90 tabs 10/03/22 pregabalin 100 mg capsule 100 mg PO TID chronic pain #270 11/01/22 caps Previous Rx's Medication Instructions Recorded atorvastatin 40 mg tablet 40 mg PO QPM #90 tabs 11/03/21 levothyroxine 125 mcg tablet 125 mcg PO DAILY #90 tabs 11/23/21 chlorthalidone 25 mg tablet 25 mg PO HS #90 tabs 03/26/22 lisinopril 30 mg tablet 30 mg PO DAILY #90 tabs 07/18/22 oxycodone-acetaminophen 5 mg-325 1 tab PO Q8H PRN pain #24 tabs 08/14/22 mg tablet (Percocet) cyclobenzaprine 10 mg tablet See Rx Instructions .Route 10/03/22 .COMPLEX #30 tabs ibuprofen 800 mg tablet 800 mg PO BID PRN pain #90 tabs 10/03/22 pregabalin 100 mg capsule 100 mg PO TID chronic pain #270 11/01/22 caps Allergies Allergy/AdvReac Type Severity Reaction Status Date / Time amoxicillin Allergy anaphylaxis, Verified 08/22/22 14:11 rash, hives Penicillins Allergy anaphylaxis, Verified 08/22/22 14:11 hives, rash Sulfa (Sulfonamide Allergy breaks out Verified 08/22/22 14:11 Antibiotics) in hives, diarrhea, anaphylaxis clonidine AdvReac makes Verified 08/22/22 14:11 chest tight tramadol AdvReac I don't Verified 08/22/22 14:11 take tramadol. General Stated Complaint: GenMedical CAROL: 4 Review of Systems All systems reviewed & are unremarkable except as noted in HPI and below Constitutional Constitutional: Denies chills, Denies fever(s) and Denies weakness Cardiovascular Cardiovascular: Denies chest pain and Denies dyspnea Respiratory Respiratory: Denies cough and Denies dyspnea Gastrointestinal Gastrointestinal: Denies abdominal pain, Denies nausea and Denies vomiting Integumentary/Breasts Skin/Breast: Denies rash Neurologic Neurologic: Denies weakness Psychiatric Psychiatric: Denies depression PFSH All Active Problems (Updated 11/14/22 @ 03:15 by Paul Guajardo MD) Opiate overdose (Acute) Opiate use (Acute) COVID-19 virus infection (Acute ~05/2022) Abdominal pain (Acute) Back pain (Acute) Seasonal allergies (Acute) Chronic low back pain (Acute) Urinary incontinence (Acute) nocturnal Elevated alkaline phosphatase level (Acute) GGT also elevated- Abd US 06/25- liver with mild enlargement, no lesions. Hep panel neg Morbid obesity with BMI of 50.0-59.9, adult (Acute) Hyperlipidemia (Acute) Prediabetes (Acute) History of drug abuse (Acute) prescription pills, coke Hypothyroid (Chronic) Smoker (Chronic) 05/2021- 3/ PPD 2021- 1.5 PPD Depressive disorder (Chronic) Bipolar I disorder (Chronic) Essential hypertension (Chronic) Attention deficit hyperactivity disorder, combined type (Chronic) Anxiety (Chronic) Obsessive-compulsive disorder (Chronic) Medical History Abdominal pain Dorsopathy, unspecified Gastroesophageal reflux disease Hernia, umbilical 11/11/[address] Sesay. Overweight Sensorineural hearing loss Umbilical hernia Surgical History History of umbilical hernia repair S/P tendon repair Status post tonsillectomy Tonsillectomy Family History Mother Depression Emphysema lung Stroke Asthma Hypertension Hyperlipidemia Father Diabetes Essential hypertension Alcohol abuse Grandmother Diabetes Cancer Sister Alcohol abuse Depression Sister No problems noted. Son Depression Social History Smoking/Tobacco Use Status: Current every day Tobacco Type: cigarettes Tobacco: How many years used: 26 Quit status: considering quitting Second Hand Exposure: Yes Smoking risk assessment performed?: Yes Alcohol Intake: never Drug use: Daily Substance use type: marijuana, heroin and other Details: last time used 2 days ago Caregiver/Support person: No Household members: spouse Communication Needs: None Pets and animals: Yes Sexually active: Yes Do you think of yourself as: straight/heterosexual What is your relationship status?: How often do you talk on the phone with friends or family?: three or more times per week How often do you get together with friends or relatives?: once per week How often do you attend jewish or scientology services?: decline to answer Do you belong to any clubs or organized social groups?: no Panel score (0-1 are the most socially isolated patients): 2 Frequency: does not exercise Special matt needs: No Do you feel safe at home: Yes Do you feel safe in your relationship?: Yes Exam Const General: no acute distress Orientation: alert [facility] Head: normal to inspection Ears: external ears normal General nose exam: external nose normal Mouth: moist mucous membranes Eyes General: appearance normal, both eyes and all related structures Neck Neck: normal visual inspection Resp Effort & Inspection: normal respiratory effort and able to speak in complete sentences Cardio Rate: regular rate Skin General skin exam: no rashes or lesions noted Neuro General: patient alert and patient oriented x3 Extrem General: normal to inspection Psych Mental Status: mental status grossly normal Course Vital Signs Vital signs: Vital Signs Temperature 36.4 C L 11/14/22 03:00 Pulse 78 11/14/22 03:00 Respiratory Rate 21 11/14/22 03:00 Blood Pressure 111/61 11/14/22 03:00 Pulse Oximetry 94 11/14/22 03:00 Temperature 36.4 C L 11/14/22 03:00 Temperature Source Tympanic 11/14/22 03:00 Pulse 78 11/14/22 03:00 Respiratory Rate 21 11/14/22 03:00 Respiratory Effort Normal 11/14/22 03:05 Respiratory Depth Normal 11/14/22 03:05 Respiratory Pattern Normal 11/14/22 03:05 Blood Pressure 111/61 11/14/22 03:00 Blood Pressure Position Sitting 11/14/22 03:00 Pulse Oximetry 94 11/14/22 03:00 Oxygen Delivery Method Room Air 11/14/22 03:00 Oxygen Flow Rate 0 11/14/22 03:00
== END 2022-11-14 03:26 | disposition home or self-care (01) ==
PROVIDERS: Emergency Provider Emergency Medicine; PCP Nurse Practitioner Family
DX: F11.90 Opioid use, unspecified, uncomplicated (principal)
CPT/HCPCS: 99281; 99282

== ENCOUNTER 2022-11-16 10:15 | Outpatient (CLI) | payer OTHER, SELFPAY ==
--- NOTE | 2022-11-16 08:15 | DI.US_ITS ---
Exam(s) US EXTREMITY VENOUS BI EXAM: US EXTREMITY VENOUS BI CLINICAL HISTORY: leg swelling right > left r/o DVT, M79.89. TECHNIQUE: Bilateral lower extremity venous ultrasound performed using grayscale, color-flow, and sp ectral Doppler analysis. COMPARISON: No exams were available for comparison FINDINGS: The bilateral common femoral, femoral and popliteal veins demonstrate normal compressibility, augment ation, and color Doppler. The posterior tibial veins are patent. Lower extremity edema. IMPRESSION: Right: Negative for DVT Left: Negative for DVT DATA REPOSITORY:
--- NOTE | 2022-11-16 09:15 | DI.RAD_ITS ---
Exam(s) XR KNEE RT 4V AP,LAT,JODI,PAT EXAM: XR KNEE RT 4V AP,LAT,JODI,PAT CLINICAL HISTORY: Leg swelling, M79.89, evaluate pathology. TECHNIQUE: 2D digital imaging was performed. Three views. COMPARISON: CR,XR XR KNEE RT 3V AP,LAT,JODI from 02/10/2022 FINDINGS: BONES: No acute fracture is present. No bony destructive lesion is seen. JOINTS: The knee is normally aligned. No joint effusion is seen. Minimal periarticular spurring. SOFT TISSUE: Normal. IMPRESSION: Minimal degenerative changes. DATA REPOSITORY: RADIATION DOSE DELIVERED:
[2022-11-16 10:52] LABS: Abs Immature Grans 0.05 10^3/uL (0.0-0.06); Absolute Basophil Count 0.04 10^3/uL (0.0-0.2); Absolute Monocyte Count 0.49 10^3/uL (0.1-0.8); Absolute Neutrophil Count 8.66 10^3/uL (1.2-6.7); Basophils % 0.4; Eosinophils % 0.9; HGB 15.9 g/dL (13.5-17.5); Immature Grans % 0.4; Lymphocytes % 16.2; MCH 29.2 pg (27.0-33.0); MCHC 32.4 % (32.0-36.0); MCV 90 fL (80-95); MPV 9.8 fL (8.0-11.0); Monocytes % 4.4; Neutrophils % 77.7; Platelet Count 246 10^3/uL (130-400); RBC 5.45 10^6/uL (4.36-5.78); RDW 12.9 % (11.8-14.1); RDW-SD 42.4 fL; WBC 11.14 10^3/uL (4.4-10.8)
[2022-11-16 11:06] LABS: ALT 40 U/L (16-63); AST 21 U/L (15-37); Albumin 3.4 g/dL (3.4-5.0); Alkaline Phosphatase 118 U/L (46-116); Anion Gap 5.2 mmol/L (3-11); BUN 14 mg/dL (7-18); Bilirubin, Total 0.7 mg/dL (0.2-1.0); CO2 32.8 mmol/L (21.0-32.0); CREATININE 0.9 mg/dL (0.70-1.30); Chloride 101 mmol/L (98-107); Estimated GFR 108.01 (mL/min/1.73m2); Glucose 119 mg/dL (74-106); Sodium 139 mmol/L (136-145); Total Protein 7.8 g/dL (6.4-8.2)
== END 2022-11-16 10:35 ==
LOC: DI 10:15
PROVIDERS: PCP Nurse Practitioner Family; Visit Provider Physician Assistant
DX: M79.89 Other specified soft tissue disorders (principal); F31.9 Bipolar disorder, unspecified
CPT/HCPCS: 36415; 80053; 73564; 85025; 93970

== ENCOUNTER 2022-11-16 10:47 | Emergency (ER) | payer OTHER, SELFPAY ==
[2022-11-16 10:53] VITALS: BP 163/96; PULSE 75; RESP 16; TEMP 36.6; O2SAT 98
--- NOTE | 2022-11-16 11:08 | ED.GENADUL_ITS ---
Discharge Plan Disposition Patient Disposition: Home Condition: Stable Discharge Details Clinical Impression: Infected wound, Cellulitis of finger of left hand Primary Care Provider: Jeromy Holden ED Provider: Dariela Cortes Home Meds and New Rx's Prescriptions: New clindamycin HCl 150 mg capsule 450 mg PO TID 7 Days Qty: 63 0RF Continued oxycodone-acetaminophen [Percocet] 5-325 mg tablet 1 tab PO Q8H MDD 3 tabs PRN (Reason: pain) Qty: 24 0RF Patient Comments: does not take anymore atorvastatin 40 mg tablet 40 mg PO QPM Qty: 90 4RF Patient Comments: does not take levothyroxine 125 mcg tablet 125 mcg PO DAILY Qty: 90 4RF amitriptyline 75 mg tablet 75 mg PO QHS Rx Instructions: 03/19/22-Rx'd by SONYA/tarun chlorthalidone 25 mg tablet 25 mg PO HS Qty: 90 0RF lisinopril 30 mg tablet 30 mg PO DAILY Qty: 90 3RF cyclobenzaprine 10 mg tablet See Rx Instructions .ROUTE .COMPLEX Qty: 30 1RF Dose Instruction: TAKE ONE TABLET BY MOUTH AT BEDTIME NEEDED FOR MUSCLE SPASM Rx Instructions: TAKE ONE TABLET BY MOUTH AT BEDTIME NEEDED FOR MUSCLE SPASM ibuprofen 800 mg tablet 800 mg PO BID PRN (Reason: pain) Qty: 90 0RF pregabalin 100 mg capsule 100 mg PO TID Qty: 270 3RF acetaminophen [Tylenol] 325 mg Capsule 650 mg PO DAILY melatonin 10 mg Tablet 10 mg PO HS PRN Discharge Instructions Instructions: Wound Infection (ED), Cellulitis (ED) Additional Instructions: Your x-ray shows no evidence of fracture or foreign body. You appear to have a cellulitis of your finger which is a skin infection likely related to your finger wound. Soak the wound in warm water several times daily for 20 minutes at a time. Cover wound with bandage if risk of contamination or injury. Otherwise you can keep the wound open to air if resting at home to allow edges to dry and heal. A prescription for antibiotics has been sent electronically to your pharmacy to take as directed until finished. Follow-up with your primary care doctor in 1 week. Return to the emergency department with any worsening or new concerning symptoms. Discharge Data Discharge Physician: Dariela Cortes Medical Decision Making 42-year-old male with a history of obesity, hypertension, hyperlipidemia, prediabetes, hypothyroidism, narcotic drug abuse, ADHD, OCD, anxiety and depression who presents for left fourth finger pain and swelling with concern for infection after a fall onto his finger a few days ago. Tetanus up-to-date 2017. His left fourth finger appears edematous, erythematous with limitation of range of motion which appears to be secondary to swelling and pain. He also has a 2 x 2 centimeter wound on the dorsal aspect of the middle phalange of the fourth finger with a hematoma noted on proximal aspect and open wound with green crust and mild green discharge noted on distal aspect. Discussed with patient that as the wound already appears and has been reported to be draining, do not see an indication for an I&D. Discussed with laboratory and he has had a CBC and CMP her outpatient labs from the PCP this morning this noted a white blood cell count of 11, glucose 119 with bicarb of 32.8 and normal anion gap. We will add an ESR and CRP. We will also obtain a left fourth finger x-ray to rule out foreign body versus fracture. Discussed with patient that he will need antibiotics. He is allergic to penicillin and sulfa so will cover likely with clindamycin. X-ray reviewed and notes soft tissue swelling but no evidence of fracture or foreign body. ESR minimally elevated at 19 and CRP elevated at 6.33. Will cover with clindamycin. He was given 1 dose here and a prescription sent electronically to his pharmacy. He was advised on the importance of soaking finger in warm water several times daily to help with drainage and cleaning. His finger was soaked urine saline and cover with topical antibiotic ointment and dressing. He states he has a follow-up appointment with the primary care doctor next Saturday. Advised to have his finger reevaluated at that time. Usual and customary return precautions given prior to discharge. Medical Records Medical records reviewed: Yes I reviewed the patient's medical records. Imaging Data Radiologic Study: Radiologist's impression: XR FINGER LT INDEX CLINICAL HISTORY: ? fall onto L finger on ground.? TECHNIQUE:? 2D digital imaging was performed.? Three views. COMPARISON:? None. FINDINGS: BONES: No acute fracture is present. No bony destructive lesion is seen. JOINTS: No dislocation present. SOFT TISSUE: Swelling.? No foreign body IMPRESSION: Soft tissue swelling.? No evidence of fracture. HPI General Mode of arrival: ambulatory . Date/Time Provider Initiated Documentation: 11/16/22 10:48 . Limitations to Documentation: no limitations . Information obtained by: patient . HPI Narrative: Patient is a 42-year-old male with a history of morbid obesity, hypertension, hyperlipidemia, prediabetes, hypothyroidism, ADHD, narcotic abuse, anxiety, depression who presents for left fourth finger pain and swelling with concern for infection. Patient states he tripped and fell while he was walking hitting his left fourth finger on the gravel ground a few days ago. He states since then the area has become more red, painful and swollen. Patient denies any known foreign body. He denies any fever. He states he has been seeing his primary care doctor for chronic leg swelling and they had drawn outpatient blood work this morning. Related Data Home Medications Medication Instructions Recorded Confirmed atorvastatin 40 mg tablet 40 mg PO QPM #90 tabs 11/03/21 08/22/22 levothyroxine 125 mcg tablet 125 mcg PO DAILY #90 tabs 11/23/21 11/16/22 amitriptyline 75 mg tablet 75 mg PO QHS 03/19/22 11/16/22 chlorthalidone 25 mg tablet 25 mg PO HS #90 tabs 03/26/22 11/16/22 lisinopril 30 mg tablet 30 mg PO DAILY #90 tabs 07/18/22 11/16/22 acetaminophen 325 mg capsule 650 mg PO DAILY 07/22/22 11/16/22 (Tylenol) melatonin 10 mg tablet 10 mg PO HS PRN 07/22/22 11/16/22 oxycodone-acetaminophen 5 mg-325 1 tab PO Q8H PRN pain #24 tabs 08/14/22 08/22/22 mg tablet (Percocet) cyclobenzaprine 10 mg tablet See Rx Instructions .Route 10/03/22 11/16/22 .COMPLEX #30 tabs ibuprofen 800 mg tablet 800 mg PO BID PRN pain #90 tabs 10/03/22 11/16/22 pregabalin 100 mg capsule 100 mg PO TID chronic pain #270 11/01/22 11/16/22 caps clindamycin HCl 150 mg capsule 450 mg PO TID 7 days #63 caps 11/16/22 Previous Rx's Medication Instructions Recorded atorvastatin 40 mg tablet 40 mg PO QPM #90 tabs 11/03/21 levothyroxine 125 mcg tablet 125 mcg PO DAILY #90 tabs 11/23/21 chlorthalidone 25 mg tablet 25 mg PO HS #90 tabs 03/26/22 lisinopril 30 mg tablet 30 mg PO DAILY #90 tabs 07/18/22 oxycodone-acetaminophen 5 mg-325 1 tab PO Q8H PRN pain #24 tabs 08/14/22 mg tablet (Percocet) cyclobenzaprine 10 mg tablet See Rx Instructions .Route 10/03/22 .COMPLEX #30 tabs ibuprofen 800 mg tablet 800 mg PO BID PRN pain #90 tabs 10/03/22 pregabalin 100 mg capsule 100 mg PO TID chronic pain #270 11/01/22 caps clindamycin HCl 150 mg capsule 450 mg PO TID 7 days #63 caps 11/16/22 Allergies Allergy/AdvReac Type Severity Reaction Status Date / Time amoxicillin Allergy anaphylaxis, Verified 11/16/22 10:59 rash, hives Penicillins Allergy anaphylaxis, Verified 11/16/22 10:59 hives, rash Sulfa (Sulfonamide Allergy breaks out Verified 11/16/22 10:59 Antibiotics) in hives, diarrhea, anaphylaxis clonidine AdvReac makes Verified 11/16/22 10:59 chest tight tramadol AdvReac I don't Verified 11/16/22 10:59 take tramadol. General Stated Complaint: Cellulitis CAROL: 3 Review of Systems All systems reviewed & are unremarkable except as noted in HPI and below Constitutional Constitutional: Reports as per HPI, Denies chills and Denies fever(s) Eyes Eyes: Denies blurry vision ENT Ears, Nose, Mouth, and Throat: Denies dizziness, Denies sore throat and Denies throat swelling Cardiovascular Cardiovascular: Denies chest pain and Denies dyspnea Respiratory Respiratory: Denies cough and Denies dyspnea Gastrointestinal Gastrointestinal: Denies abdominal pain, Denies diarrhea and Denies vomiting Genitourinary Genitourinary: Denies hematuria and Denies dysuria Musculoskeletal Musculoskeletal: Denies back pain and Denies numbness Comments: left 4th finger pain Integumentary/Breasts Skin/Breast: Denies lesions and Denies rash Neurologic Neurologic: Denies dizziness, Denies localized weakness and Denies numbness Allergic/Immunologic Allergic/Immunologic: Denies throat swelling PFSH All Active Problems (Updated 11/16/22 @ 12:04 by Dariela Cortes DO) Opiate overdose (Acute) Opiate use (Acute) Infected wound (Acute) Cellulitis of finger of left hand (Acute) COVID-19 virus infection (Acute ~05/2022) Abdominal pain (Acute) Back pain (Acute) Seasonal allergies (Acute) Chronic low back pain (Acute) Urinary incontinence (Acute) nocturnal Elevated alkaline phosphatase level (Acute) GGT also elevated- Abd US 06/25- liver with mild enlargement, no lesions. Hep panel neg Morbid obesity with BMI of 50.0-59.9, adult (Acute) Hyperlipidemia (Acute) Prediabetes (Acute) History of drug abuse (Acute) prescription pills, coke Hypothyroid (Chronic) Smoker (Chronic) 05/2021- 3 PPD 2021- 1.5 PPD Depressive disorder (Chronic) Bipolar I disorder (Chronic) Essential hypertension (Chronic) Attention deficit hyperactivity disorder, combined type (Chronic) Anxiety (Chronic) Obsessive-compulsive disorder (Chronic) Medical History Abdominal pain Dorsopathy, unspecified Gastroesophageal reflux disease Hernia, umbilical 11/11/[address] Sesay. Overweight Sensorineural hearing loss Umbilical hernia Surgical History History of umbilical hernia repair S/P tendon repair Status post tonsillectomy Tonsillectomy Family History Mother Depression Emphysema lung Stroke Asthma Hypertension Hyperlipidemia Father Diabetes Essential hypertension Alcohol abuse Grandmother Diabetes Cancer Sister Alcohol abuse Depression Sister No problems noted. Son Depression Social History Smoking/Tobacco Use Status: Current every day Tobacco Type: cigarettes Tobacco: How many years used: 26 Quit status: considering quitting Second Hand Exposure: Yes Smoking risk assessment performed?: Yes Alcohol Intake: former Drug use: Daily Substance use type: marijuana, opiates and other Details: done fentanyl 4 times. had alcohol problem 13 years ago. Caregiver/Support person: No Household members: spouse Communication Needs: None Pets and animals: Yes Sexually active: Yes Do you think of yourself as: straight/heterosexual What is your relationship status?: How often do you talk on the phone with friends or family?: three or more times per week How often do you get together with friends or relatives?: once per week How often do you attend mosque or restorationism services?: decline to answer Do you belong to any clubs or organized social groups?: no Panel score (0-1 are the most socially isolated patients): 2 Frequency: does not exercise Special matt needs: No Do you feel safe at home: Yes Do you feel safe in your relationship?: Yes Additional Social history: at bedside Exam Const General: cooperative, healthy appearing and no acute distress HENMT Head: normal to inspection Mouth: oral mucosae normal Eyes General: appearance normal, both eyes and all related structures Neck Neck: normal visual inspection Resp Effort & Inspection: normal respiratory effort and able to speak in complete sentences Cardio Rate: regular rate Skin General skin exam: no rashes or lesions noted Neuro General: patient alert, patient awake and patient oriented x3 Motor: muscle tone normal throughout Extrem General: capillary refill normal Hand/finger images: 1. There is a 2 x 2 centimeter wound noted with a 1 x 1 cm open area on distal aspect and a hematoma on proximal aspect. It is draining some minimal green?fluid. Has a green crusted lesion within the open area. There is mild to moderate edema and limitation of range of motion secondary to edema and pain of the entire left fourth finger. No obvious deformity. Psych Appearance: grossly normal Affect: normal affect Course Vital Signs Vital signs: Vital Signs Temperature 97.8 F 11/16/22 10:53 Pulse 75 11/16/22 10:53 Respiratory Rate 16 11/16/22 10:53 Blood Pressure 163/96 H 11/16/22 10:53 Pulse Oximetry 98 11/16/22 10:53 Temperature 97.8 F 11/16/22 10:53 Temperature Source Oral 11/16/22 10:53 Pulse 75 11/16/22 10:53 Respiratory Rate 16 11/16/22 10:53 Blood Pressure 163/96 H 11/16/22 10:53 Blood Pressure Position Sitting 11/16/22 10:53 Pulse Oximetry 98 11/16/22 10:53 Oxygen Delivery Method Room Air 11/16/22 10:53 Oxygen Flow Rate 0 11/16/22 10:53 Pain Level 10 11/16/22 10:53
--- NOTE | 2022-11-16 11:15 | DI.RAD_ITS ---
Exam(s) XR FINGER LT INDEX EXAM: XR FINGER LT INDEX CLINICAL HISTORY: fall onto L finger on ground. TECHNIQUE: 2D digital imaging was performed. Three views. COMPARISON: None. FINDINGS: BONES: No acute fracture is present. No bony destructive lesion is seen. JOINTS: No dislocation present. SOFT TISSUE: Swelling. No foreign body IMPRESSION: Soft tissue swelling. No evidence of fracture. DATA REPOSITORY: RADIATION DOSE DELIVERED:
[2022-11-16 11:45] LABS: ESR 19 mm/hr (0-15)
[2022-11-16 11:53] LABS: C-Reactive Protein 6.33 mg/dL (0.0-0.3)
[2022-11-16] MEDS: Clindamycin 150 MG CAP 450 MG PO (12:15)
[2022-11-16 12:38] VITALS: BP 164/107; PULSE 64; RESP 16; O2SAT 97
== END 2022-11-16 12:40 | disposition home or self-care (01) ==
PROVIDERS: Emergency Provider Physician Assistant; PCP Nurse Practitioner Family
DX: L03.012 Cellulitis of left finger (principal); I10 Essential (primary) hypertension; R70.0 Elevated erythrocyte sedimentation rate; R79.82 Elevated C-reactive protein (CRP)
CPT/HCPCS: 80048; 85652; 73140; 85025; 86140; 99283; 99284

== ENCOUNTER 2022-12-13 02:45 | Outpatient (CLI) | payer OTHER, SELFPAY ==
[2022-12-13 12:26] LABS: Hemoglobin A1C 5.9 % (<5.7)
[2022-12-13 12:56] LABS: Calculated LDL 116 mg/dL (<100); Cholesterol 182 mg/dL (<200); HDL Cholesterol 44 mg/dL (40-60); TSH (W/Ref FT4) 2.61 uIU/mL (0.36-3.74); Triglyceride 111 mg/dL (<150)
== END 2022-12-13 02:46 | disposition home or self-care (01) ==
PROVIDERS: PCP Nurse Practitioner Family; Visit Provider Nurse Practitioner Family
DX: E03.9 Hypothyroidism, unspecified (principal); E78.5 Hyperlipidemia, unspecified; R73.03 Prediabetes
CPT/HCPCS: 36415; 80061; 83036; 84443

== ENCOUNTER 2023-05-13 10:18 | Emergency (ER) | payer OTHER, SELFPAY ==
[2023-05-13] VITALS (20 sets, daily range): BP systolic 170–212; BP diastolic 99–121; PULSE 72–86; RESP 22; TEMP 36.6; O2SAT 91–99
--- NOTE | 2023-05-13 10:45 | W.ED.GENAD ---
Discharge Plan Disposition Patient Disposition: Home Discharge Details Clinical Impression: Polysubstance abuse Primary Care Provider: Jeromy Holden ED Provider: Belkis Manley Home Meds and New Rx's Prescriptions: New ondansetron 4 mg tablet,disintegrating 4 mg PO Q6H PRNQty: 20 0RF Rx Instructions: Take 1 tab by mouth every 6 hours as needed for nausea dicyclomine 10 mg capsule 10 mg PO TID Qty: 30 0RF Rx Instructions: take for abdominal pain No Action hydrochlorothiazide 50 mg tablet 50 mg PO DAILY Qty: 90 0RF lisinopril 40 mg tablet 40 mg PO DAILY Qty: 90 3RF atorvastatin 40 mg tablet 40 mg PO QPM Qty: 90 4RF Patient Comments: does not take levothyroxine 125 mcg tablet 125 mcg PO DAILY Qty: 90 4RF pregabalin 100 mg capsule 100 mg PO TID Qty: 270 3RF ibuprofen 800 mg tablet 800 mg PO BID PRN (Reason: pain) Qty: 90 0RF cyclobenzaprine 10 mg tablet See Rx Instructions .ROUTE .COMPLEX Qty: 30 1RF Dose Instruction: TAKE ONE TABLET BY MOUTH AT BEDTIME NEEDED FOR MUSCLE SPASM Rx Instructions: TAKE ONE TABLET BY MOUTH AT BEDTIME NEEDED FOR MUSCLE SPASM acetaminophen [Tylenol] 325 mg Capsule 650 mg PO DAILY melatonin 10 mg Tablet 10 mg PO HS PRN Discharge Instructions Additional Instructions: Please take your home medications as prescribed. Take medications prescribed to you today to help with withdrawal symptoms. Please follow-up at the [facility] tomorrow if you would like to access treatment Medical Decision Making Emergent evaluation of drug withdrawal. Patient endorses smoked fentanyl and cocaine use, last 3 days ago. He is presenting with signs and symptoms concerning for opiate withdrawal. He is noted to be hypertensive, but is noncompliant with his blood pressure medications. I still feel this is likely secondary to withdrawal syndrome. He is denying any chest pain or other symptoms concerning for hypertensive emergency. Will treat with benzodiazepines. I do feel the patient would benefit from clonidine however he has an allergy to this medication. We will check lab work to evaluate for electrolyte derangement. Will give IV fluids due to his recurrent vomiting 1120: Patient is having persistent symptoms. Will give additional dose of benzodiazepine and reassess. 1231: vandana has been observed in the ED and has been resting comfortably. VS improved. have worked with case katieer to facilitate treatment plan with [facility] however they are closed for the day. Offered to fax over resources forms for the patient to facilitate his care, but the patient declines at this time. Patient reports that he does not have a car and therefore he is never going to be able to go to this clinic he is requesting that his IV be removed. At this time I feel he is stable for discharge. Medical Records Medical records reviewed: Yes I reviewed the patient's medical records. Lab Data Lab results reviewed: Yes I reviewed the patient's lab results. Lab results narrative: CMP reviewed, mild hyperglycemia without significant electrolyte derangement CBC reviewed, signs of hemoconcentration noted HPI General Date/Time Provider Initiated Documentation: 05/13/23 10:26. Limitations to Documentation: no limitations. Information obtained by: patient. HPI Narrative: 42-year-old gentleman with past medical history including chronic polysubstance abuse, unspecified mood disorder presents for evaluation of drug withdrawal symptoms. He reports that he uses fentanyl and cocaine, smoking both. He denies any IV use. He reports that his last use was 3 days ago. Since that time he has had generalized body aches, chills, vomiting diarrhea. He reports that at this time he is interested in sobriety. He denies any suicidal ideations. Related Data Home Medications Medication Instructions Recorded Confirmed atorvastatin 40 mg tablet 40 mg PO QPM #90 tabs 11/03/21 05/13/23 levothyroxine 125 mcg tablet 125 mcg PO DAILY #90 tabs 11/23/21 05/13/23 acetaminophen 325 mg capsule 650 mg PO DAILY 07/22/22 05/13/23 (Tylenol) melatonin 10 mg tablet 10 mg PO HS PRN 07/22/22 05/13/23 pregabalin 100 mg capsule 100 mg PO TID chronic pain #270 11/01/22 05/13/23 caps hydrochlorothiazide 50 mg tablet 50 mg PO DAILY #90 tabs 11/28/22 05/13/23 lisinopril 40 mg tablet 40 mg PO DAILY #90 tabs 12/26/22 05/13/23 cyclobenzaprine 10 mg tablet See Rx Instructions .Route 01/28/23 05/13/23 .COMPLEX #30 tabs ibuprofen 800 mg tablet 800 mg PO BID PRN pain #90 tabs 01/28/23 05/13/23 dicyclomine 10 mg capsule 10 mg PO TID #30 caps 05/13/23 ondansetron 4 mg disintegrating 4 mg PO Q6H PRN #20 tabs 05/13/23 tablet Previous Rx's Medication Instructions Recorded atorvastatin 40 mg tablet 40 mg PO QPM #90 tabs 11/03/21 levothyroxine 125 mcg tablet 125 mcg PO DAILY #90 tabs 11/23/21 pregabalin 100 mg capsule 100 mg PO TID chronic pain #270 11/01/22 caps hydrochlorothiazide 50 mg tablet 50 mg PO DAILY #90 tabs 11/28/22 lisinopril 40 mg tablet 40 mg PO DAILY #90 tabs 12/26/22 cyclobenzaprine 10 mg tablet See Rx Instructions .Route 01/28/23 .COMPLEX #30 tabs ibuprofen 800 mg tablet 800 mg PO BID PRN pain #90 tabs 01/28/23 dicyclomine 10 mg capsule 10 mg PO TID #30 caps 05/13/23 ondansetron 4 mg disintegrating 4 mg PO Q6H PRN #20 tabs 05/13/23 tablet Allergies Allergy/AdvReac Type Severity Reaction Status Date / Time amoxicillin Allergy anaphylaxis, Verified 05/13/23 10: rash, hives Penicillins Allergy anaphylaxis, Verified 05/13/23 10: hives, rash Sulfa (Sulfonamide Allergy breaks out Verified 05/13/23 10:23 Antibiotics) in hives, diarrhea, anaphylaxis clonidine AdvReac makes Verified 05/13/23 10:23 chest tight tramadol AdvReac I don't Verified 05/13/23 10:23 take tramadol. General Stated Complaint: DrugWithdr/MAT CAROL: 4 Review of Systems All systems reviewed & are unremarkable except as noted in HPI and below PFSH All Active Problems (Updated 05/13/23 @ 12:38 by Belkis Manley MD) Polysubstance abuse (Acute) Bilateral lower extremity edema (Acute) Seasonal allergies (Acute) Chronic low back pain (Acute) Urinary incontinence (Acute) nocturnal Elevated alkaline phosphatase level (Acute) GGT also elevated- Abd US 06/25- liver with mild enlargement, no lesions. Hep panel neg Morbid obesity with BMI of 50.0-59.9, adult (Acute) Hyperlipidemia (Acute) Prediabetes (Acute) History of drug abuse (Acute) prescription pills, coke Hypothyroid (Chronic) Smoker (Chronic) 05/2021- 3/4 PPD 2021- 1.5 PPD Depressive disorder (Chronic) Bipolar I disorder (Chronic) Essential hypertension (Chronic) Attention deficit hyperactivity disorder, combined type (Chronic) Anxiety (Chronic) Obsessive-compulsive disorder (Chronic) Medical History (Updated 05/13/23 @ 12:38 by Belkis Manley MD) Abdominal pain COVID-19 virus infection (~05/2022) Dorsopathy, unspecified Gastroesophageal reflux disease Hernia, umbilical 11/11/[address] Sesay. Overweight Sensorineural hearing loss Umbilical hernia Surgical History History of umbilical hernia repair S/P tendon repair Status post tonsillectomy Tonsillectomy Family History Mother Depression Emphysema lung Stroke Asthma Hypertension Hyperlipidemia Father Diabetes Essential hypertension Alcohol abuse Grandmother Diabetes Cancer Sister Alcohol abuse Depression Sister No problems noted. Son Depression Social History Smoking/Tobacco Use Status: Current every day Tobacco Type: cigarettes Tobacco: How many years used: 26 Quit status: considering quitting Second Hand Exposure: Yes Smoking risk assessment performed?: Yes Alcohol Intake: former Drug use: Daily Substance use type: marijuana, crack/cocaine, opiates and other Details: fentanyl use daily; stopped using Saturday05/11/23 Caregiver/Support person: No Household members: spouse Communication Needs: None Pets and animals: Yes Sexually active: Yes Do you think of yourself as: straight/heterosexual What is your relationship status?: How often do you talk on the phone with friends or family?: three or more times per week How often do you get together with friends or relatives?: once per week How often do you attend hoahaoism or hinduism services?: decline to answer Do you belong to any clubs or organized social groups?: no Panel score (0-1 are the most socially isolated patients): 2 Frequency: does not exercise Special matt needs: No Do you feel safe at home: Yes Do you feel safe in your relationship?: Yes Exam Const General: cooperative and anxious Nutritional Appearance: obese Orientation: alert and oriented x3 HENMT Other: Dry mucous membrane Resp Effort & Inspection: normal respiratory effort Auscultation: clear to auscultation bilaterally Cardio Rate: regular rate Rhythm: regular rhythm GI Palpation: soft and nontender Skin Other: Few areas of superficial ulceration with surrounding erythema, no evidence of widespread cellulitis, abscess or injection drug use signs Psych Thought Content: normal Insight: limited Judgment: limited Course Vital Signs Vital signs: Vital Signs Temperature 36.6 C 05/13/23 10:20 Pulse 86 05/13/23 10:20 Respiratory Rate 22 05/13/23 10:20 Blood Pressure 206/106 H 05/13/23 10:20 Pulse Oximetry 99 05/13/23 10:20 Temperature 36.6 C 05/13/23 10:20 Pulse 86 05/13/23 10:20 Respiratory Rate 22 05/13/23 10:20 Respiratory Pattern Normal 05/13/23 10:29 Blood Pressure 206/106 H 05/13/23 10:20 Blood Pressure Position Sitting 05/13/23 10:20 Pulse Oximetry 99 05/13/23 10:20 Oxygen Delivery Method Room Air 05/13/23 10:20 Oxygen Flow Rate 0 05/13/23 10:20 Pain Level 10 05/13/23 10:20 Lab/Test Results Lab/Test Results: Reviewed CBC. Mild elevation in white blood cell count likely from stress shift. Hemoconcentrated hemoglobin and hematocrit noted.
[2023-05-13] MEDS: LORazepam 2 MG/ML VIAL 1 MG IVP (11:00)
[2023-05-13] MEDS: Normal Saline 1,000 ML 1000 ML IV (11:00)
[2023-05-13] MEDS: Ondansetron 4 MG/2 ML VIAL IVP (11:00)
[2023-05-13 11:01] LABS: Abs Immature Grans 0.05 10^3/uL (0.0-0.06); Absolute Basophil Count 0.08 10^3/uL (0.0-0.2); Absolute Eosinophil Count 0.03 10^3/uL (0.0-0.7); Absolute Lymphocyte Count 1.44 10^3/uL (1.2-3.4); Absolute Monocyte Count 0.56 10^3/uL (0.1-0.8); Basophils % 0.6; Eosinophils % 0.2; HGB 17.6 g/dL (13.5-17.5); Immature Grans % 0.4; Lymphocytes % 10.7; MCH 28.8 pg (27.0-33.0); MCV 90 fL (80-95); MPV 9.7 fL (8.0-11.0); Monocytes % 4.2; Neutrophils % 83.9; Platelet Count 269 10^3/uL (130-400); RBC 6.12 10^6/uL (4.36-5.78); RDW 13.7 % (11.8-14.1); RDW-SD 45.2 fL; WBC 13.45 10^3/uL (4.4-10.8)
[2023-05-13 11:16] LABS: ALT 42 U/L (16-63); AST 25 U/L (15-37); Albumin 3.6 g/dL (3.4-5.0); Alkaline Phosphatase 105 U/L (46-116); Anion Gap 5.9 mmol/L (3-11); BUN 16 mg/dL (7-18); Bilirubin, Total 0.5 mg/dL (0.2-1.0); CO2 31.1 mmol/L (21.0-32.0); CREATININE 0.9 mg/dL (0.70-1.30); Calcium 9.5 mg/dL (8.5-10.1); Chloride 101 mmol/L (98-107); Estimated GFR 108.01 (mL/min/1.73m2); Glucose 136 mg/dL (74-106); Potassium 3.5 mmol/L (3.5-5.1); Sodium 138 mmol/L (136-145); Total Protein 8.5 g/dL (6.4-8.2)
[2023-05-13 11:18] LABS: Absolute Neutrophil Count 11.28 10^3/uL (1.2-6.7)
[2023-05-13] MEDS: LORazepam 2 MG/ML VIAL IVP (11:21)
--- NOTE | 2023-05-13 13:13 | NUR.NOTE ---
Patient presented to [facility] that he left his phone in the ED. I spoke with him in the waiting room and brought him back to room 7 that he was in. The phone was not in the room. TK Groves checked the linen, shook it out, and went to laundry and checked again, did not find it. TK Groves also with the patient witnessing it went through the trash while I was trying to call it and did not find or hear it. He also checked the bathroom but it was not there. Patient returned stating he did not find it in his car and Kennytafelice again came back to check, and did not find it. Nursing Note:
--- NOTE | 2023-05-13 13:27 | NUR.NOTE ---
[facility] Consent for Treatment with Buprenorphine Transition of Care Form faxed to [facility]. Nursing Note:
--- NOTE | 2023-05-13 15:39 | NUR.NOTE ---
Patient put on Care Managers list for referred for treatment to [facility]. ? pt will follow through, stated he would. Check to be sure patient will be seen. Nursing Note:
== END 2023-05-13 12:47 | disposition home or self-care (01) ==
PROVIDERS: Emergency Provider Emergency Medicine; PCP Nurse Practitioner Family
DX: F19.10 Other psychoactive substance abuse, uncomplicated (principal)
CPT/HCPCS: 80053; 96360; 96374; 96375; 96376; 99284; 85025; J2060; J2405

== ENCOUNTER 2023-09-13 11:30 | Emergency (ER) | payer OTHER, SELFPAY ==
[2023-09-13 11:32] VITALS: BP 238/106; PULSE 78; RESP 20; TEMP 36.9; O2SAT 96
--- NOTE | 2023-09-13 11:55 | W.ED.GENAD ---
HPI General Mode of arrival: ambulatory. Date/Time Provider Initiated Documentation: 09/13/23 11:54. Limitations to Documentation: no limitations. Information obtained by: patient. History of Present Illness 43 year old M presents to the emergency department with the chief complaint of Drug withdrawal, described as moderate, with intensity rated at 6. Quality is described as aching, and is localized to the abdomen. Patient reports no radiation. Patient started experiencing this day(s) (1.5) and it has been constant. No relieving factors improve symptom(s), No exacerbating factors reported . Patient notes diaphoresis, fever/chills (Feeling warm), nausea/vomiting and other (Shaky, skin crawling). Patient did receive the following treatments prior to arrival, none Related Data Home Medications Medication Instructions Recorded Confirmed atorvastatin 40 mg tablet 40 mg PO QPM #90 tabs 11/03/21 09/13/23 levothyroxine 125 mcg tablet 125 mcg PO DAILY #90 tabs 11/23/21 09/13/23 acetaminophen 325 mg capsule 650 mg PO DAILY 07/22/22 09/13/23 (Tylenol) melatonin 10 mg tablet 10 mg PO HS PRN 07/22/22 09/13/23 pregabalin 100 mg capsule 100 mg PO TID chronic pain #270 11/01/22 09/13/23 caps hydrochlorothiazide 50 mg tablet 50 mg PO DAILY #90 tabs 11/28/22 09/13/23 lisinopril 40 mg tablet 40 mg PO DAILY #90 tabs 12/26/22 09/13/23 cyclobenzaprine 10 mg tablet See Rx Instructions .Route 01/28/23 09/13/23 .COMPLEX #30 tabs ibuprofen 800 mg tablet 800 mg PO BID PRN pain #90 tabs 01/28/23 09/13/23 dicyclomine 10 mg capsule 10 mg PO TID #30 caps 05/13/23 09/13/23 ondansetron 4 mg disintegrating 4 mg PO Q6H PRN #20 tabs 05/13/23 09/13/23 tablet clindamycin HCl 300 mg capsule 300 mg PO TID #15 caps 08/09/23 09/13/23 Previous Rx's Medication Instructions Recorded atorvastatin 40 mg tablet 40 mg PO QPM #90 tabs 11/03/21 levothyroxine 125 mcg tablet 125 mcg PO DAILY #90 tabs 04/21/22 pregabalin 100 mg capsule 100 mg PO TID chronic pain #270 11/01/22 caps hydrochlorothiazide 50 mg tablet 50 mg PO DAILY #90 tabs 11/28/22 lisinopril 40 mg tablet 40 mg PO DAILY #90 tabs 12/26/22 cyclobenzaprine 10 mg tablet See Rx Instructions .Route 01/28/23 .COMPLEX #30 tabs ibuprofen 800 mg tablet 800 mg PO BID PRN pain #90 tabs 01/28/23 dicyclomine 10 mg capsule 10 mg PO TID #30 caps 05/13/23 ondansetron 4 mg disintegrating 4 mg PO Q6H PRN #20 tabs 05/13/23 tablet clindamycin HCl 300 mg capsule 300 mg PO TID #15 caps 08/09/23 Allergies Allergy/AdvReac Type Severity Reaction Status Date / Time amoxicillin Allergy anaphylaxis, Verified 09/13/23 11:37 rash, hives Penicillins Allergy anaphylaxis, Verified 09/13/23 11:37 hives, rash Sulfa (Sulfonamide Allergy breaks out Verified 09/13/23 11:37 Antibiotics) in hives, diarrhea, anaphylaxis clonidine AdvReac makes Verified 09/13/23 11:37 chest tight tramadol AdvReac I don't Verified 09/13/23 11:37 take tramadol. General Stated Complaint: DrugWithdr/MAT CAROL: 3 Review of Systems Constitutional Constitutional: Reports fatigue, Reports poor appetite and Denies weakness Cardiovascular Cardiovascular: Denies chest pain and Denies dyspnea Respiratory Respiratory: Denies dyspnea Gastrointestinal Gastrointestinal: Reports abdominal pain, Reports diarrhea, Reports nausea and Reports vomiting Musculoskeletal Musculoskeletal: Reports back pain (Chronic) Integumentary/Breasts Skin/Breast: Denies rash Neurologic Neurologic: Denies weakness Psychiatric Psychiatric: Reports anxiety, Denies homicidal ideation and Denies suicidal ideation Endocrine Endocrine: Reports fatigue Hematologic/Lymphatic Hematologic/Lymphatic: Denies easy bleeding and Denies easy bruising Exam Const General: cooperative and no acute distress Orientation: alert, awake and oriented x3 HENMT Head: normal to inspection, normocephalic and atraumatic Face and sinus: normal facial exam Mouth: moist mucous membranes abnormal (Dry mucous membranes) Throat: posterior oropharynx normal Eyes General: appearance normal, both eyes and all related structures Conjunctivae: conjunctivae normal Neck Neck: normal visual inspection, full ROM, no meningeal signs, trachea midline and supple Resp Effort & Inspection: normal respiratory effort and able to speak in complete sentences Auscultation: clear to auscultation bilaterally Cardio Rate: regular rate Rhythm: regular rhythm GI Palpation: soft, not firm, no guarding, not rigid and nontender Auscultation: normal bowel sounds Back/Spine/Pelvis Back: no CVA tenderness and No back tenderness Skin Rashes: no rashes Neuro General: patient alert, patient awake, patient oriented x3, moves all extremities and no focal motor deficits Cognition: normal cognition Speech: speech normal Gait: normal gait Motor: muscle tone normal throughout Sensory Exam: no sensory deficits noted Extrem General: normal to inspection, full ROM and no pedal edema Psych Appearance: disheveled Mental Status: mental status grossly normal Speech and Movement: speech and movement normal Mood: anxious mood Affect: anxious affect Attitude: cooperative Thought Process: normal Thought Content: normal Insight: fair Judgment: fair Course Vital Signs Vital signs: Vital Signs Temperature 36.9 C 09/13/23 11:32 Pulse 78 09/13/23 11:32 Respiratory Rate 20 09/13/23 11:32 Blood Pressure 238/106 H 09/13/23 11:32 Pulse Oximetry 96 09/13/23 11:32 Temperature 36.9 C 09/13/23 11:32 Temperature Source Temporal Artery Scan 09/13/23 11:32 Pulse 78 09/13/23 11:32 Respiratory Rate 20 09/13/23 11:32 Respiratory Effort Normal, Non-Labored 09/13/23 11:39 Blood Pressure 238/106 H 09/13/23 11:32 Pulse Oximetry 96 09/13/23 11:32 Oxygen Delivery Method Room Air 09/13/23 11:32 Oxygen Flow Rate 0 09/13/23 11:32 Pain Level 10 09/13/23 11:32 Medical Decision Making This is a 43-year-old gentleman with a past medical history that includes OCD, anxiety, ADHD, hypertension, bipolar disorder, depression, current smoker, hypothyroidism, BMI of 34.4, chronic low back pain, prediabetes, drug abuse including both smoking fentanyl and cocaine. Patient states that he has been smoking somewhere between 6-10 bags of fentanyl daily and somewhere between 0.5 and 1 g of cocaine every other day. Last used both about 36 hours ago. Patient states since that time he has felt nauseous, diffuse abdominal discomfort, vomiting, diarrhea, fatigue, like his skin is crawling, increased anxiety. He tells me that he has contacted the [facility] clinic and is scheduled to be evaluated on Saturday. He also reports that he has stopped taking all of his medications for the past 8-9 months. Clinically he appears anxious, he does present hypertensive although he is otherwise asymptomatic regarding visual changes, chest pain, headache, etc. No surprise that he is hypertensive given he is both withdrawing and has not taken any medication over the past 8-9 months. I will personally contact the [facility] clinic to confirm his appointment on Saturday and discuss treatment options with one of their providers in the meantime. I will also have the patient talk with a manager disaster recovery. In the meantime he is agreeable to letting us establish an IV, pending routine laboratory values, getting IV Ativan, Zofran, normal saline. Will monitor his blood pressure closely. Patient did talk with manager disaster recovery, they gave him additional resources, and he will be in touch with them over the next few days regarding his ongoing withdrawal and follow-up with [facility]. Blood pressure, specifically systolic in the 160s, has come down nicely with IV fluid and Ativan. Patient subjectively feels much better. Laboratory values reveal a leukocytosis of 15.63 hemoglobin 19.6, hematocrit 58.0. No evidence of infection during his evaluation today. Believe that his laboratory values are likely secondary to dehydration and hemoconcentration, would like to provide a second liter of IV fluid and repeat his CBC. Upon review of prior records, it does appear as though he has had increased leukocytosis, hemoglobin, hematocrit with similar presentations. Electrolytes are unremarkable. No evidence of MANNY. Glucose 133. LFTs reveal an alk phosphatase of 135 otherwise unremarkable, lipase 20. Urinalysis without evidence of infection. Tox screen positive for cocaine. Patient states that his ride is in the parking lot and he would like to leave. Unfortunately have not spoken with the [facility] yet. Patient was encouraged to allow us to continue to monitor his blood pressure, give IV fluids, and I would like to recheck a CBC. He is agreeable to this plan but only for short time. I was eventually able to speak with the [facility] and they state that they do not have an appointment with this patient on Saturday. I relayed this information to the patient and he is quite surprised. I was able to make an appointment on Saturday at 10 AM. Patient is growing increasingly anxious to leave. He is requesting his IV to be removed. Systolic blood pressure is actually now in the 130s. He has not infused his entire first liter yet. At this point he is becoming insistent to leave, although I was able to speak with scheduling at the [facility], I was unable to speak with a provider regarding possible Suboxone dosing as a bridge until he is evaluated on Saturday. I was in another exam room performing a procedure, when I finished this, it was brought to my attention that the patient had requested his IV be removed and he eloped from the ER as he did not want to make his ride wait any longer. Unfortunately his blood pressure prior to elopement was 201/91. I was unable to speak with the patient before he eloped. I was also unable to speak with the [facility] provider to discuss bridging of Suboxone before his elopement. I would have liked to at least restart his hypertensive medications if he was agreeable to this and close the loop with his PCP to discuss his chronic addiction, noncompliance with medications, and need for outpatient reevaluation. Standard discharge and return precautions were provided. Patient understands, is agreeable to this plan, and has no additional questions or concerns upon discharge. This documentation was generated using [employer] dictation system, please disregard any oddities of phrase or misspellings. Medical Records Medical records reviewed: Yes I reviewed the patient's medical records. Lab Data Lab results reviewed: Yes I reviewed the patient's lab results. Labs: Laboratory Tests Range/Units 09/13/23 09/13/23 12:00 12:30 WBC (4.4-10.8) 10^3/uL 15.63 H RBC (4.36-5.78) 10^6/uL 6.78 H Hgb (13.5-17.5) g/dL 19.6 H* Hct (40.0-50.0) % 58.0 H* MCV (80-95) fL 86 MCH (27.0-33.0) pg 28.9 MCHC (32.0-36.0) % 33.8 RDW (11.8-14.1) % 14.7 H Plt Count (130-400) 10^3/uL 389 MPV (8.0-11.0) fL 9.4 Immature Gran % 0.4 Neutrophils % 80.7 Lymphocytes % 14.6 Monocytes % 3.6 Eosinophils % 0.1 Basophils % 0.6 Nucleated RBC % (0.0-0.3) % 0.0 Absolute Neutrophils (1.2-6.7) 10^3/uL 12.61 H Absolute Lymphocytes (1.2-3.4) 10^3/uL 2.28 Absolute Monocytes (0.1-0.8) 10^3/uL 0.56 Absolute Eosinophils (0.0-0.7) 10^3/uL 0.02 Absolute Basophils (0.0-0.2) 10^3/uL 0.09 RBC Morphology Normal Sodium (136-145) mmol/L 144 Potassium (3.5-5.1) mmol/L 3.6 Chloride (98-107) mmol/L 102 Carbon Dioxide (21.0-32.0) mmol/L 30.7 Anion Gap (3-11) mmol/L 11.3 H BUN (7-18) mg/dL 18 Creatinine (0.70-1.30) mg/dL 0.8 Est GFR (CKD-EPI 2020) (mL/min/1.73m2) 111.22 Glucose (74-106) mg/dL 133 H Calcium (8.5-10.1) mg/dL 10.1 Total Bilirubin (0.2-1.0) mg/dL 0.5 AST (15-37) U/L 30 ALT (16-63) U/L 47 Alkaline Phosphatase (46-116) U/L 135 H Total Protein (6.4-8.2) g/dL 9.4 H Albumin (3.4-5.0) g/dL 4.0 Lipase (16-77) U/L 20 Urine Color (Yellow) Yellow Urine Clarity (Clear) Clear Urine pH (5-8) 7.0 Ur Specific [place] (1.005-1.025) 1.020 Urine Protein (Negative) mg/dL 100 H Urine Ketones (Negative) mg/dL Negative Urine Blood (Negative) Negative Urine Nitrite (Negative) Negative Urine Bilirubin (Negative) Small H Urine Urobilinogen (Up to 0.2) mg/dL 1.0 H Ur Leukocyte Esterase (Negative) Negative Urine RBC Not Applicable Urine WBC Not Applicable Ur Epithelial Cells (Negative) HPF Moderate Urine Crystals Not Applicable Urine Bacteria (Negative) HPF Negative Urine Casts (Negative) LPF Comment Urine Mucus (Negative) Heavy Urine Other (Negative) Rare Renal Ur Culture Indicated? No Urine Glucose (Negative) mg/dL Negative Urine Opiates Screen (Negative) Negative Urine Methadone Screen (Negative) Negative Ur Barbiturates Screen (Negative) Negative Ur Tricyclics Screen (Negative) Negative Ur Amphetamines Screen (Negative) Negative U Benzodiazepines Scrn (Negative) Negative Urine Cocaine Screen (Negative) Positive A Ur THC Screen (Negative) Negative Quality:SDOH Health Related Social Needs: Health related social needs inadequate housing, material hardship, food insecurity, transpo insecurity PFSH All Active Problems (Updated 09/14/23 @ 10:53 by KIRILL Coleman) Drug abuse (Acute) Drug withdrawal (Acute) Drug addiction (Acute) Bilateral lower extremity edema (Acute) Seasonal allergies (Acute) Chronic low back pain (Acute) Urinary incontinence (Acute) nocturnal Elevated alkaline phosphatase level (Acute) GGT also elevated- Abd US 06/25- liver with mild enlargement, no lesions. Hep panel neg Morbid obesity with BMI of 50.0-59.9, adult (Acute) Hyperlipidemia (Acute) Prediabetes (Acute) History of drug abuse (Acute) prescription pills, coke Hypothyroid (Chronic) Smoker (Chronic) 05/2021- 3/4 PPD 2022- 1.5 PPD Depressive disorder (Chronic) Bipolar I disorder (Chronic) Essential hypertension (Chronic) Attention deficit hyperactivity disorder, combined type (Chronic) Anxiety (Chronic) Obsessive-compulsive disorder (Chronic) Medical History COVID-19 virus infection (~05/2022) Abdominal pain Umbilical hernia Overweight Dorsopathy, unspecified Sensorineural hearing loss Hernia, umbilical 11/11/[address] Sesay. Gastroesophageal reflux disease Surgical History History of umbilical hernia repair Status post tonsillectomy S/P tendon repair Tonsillectomy Family History Mother Depression Emphysema lung Stroke Asthma Hypertension Hyperlipidemia Father Diabetes Essential hypertension Alcohol abuse Grandmother Diabetes Cancer Sister Alcohol abuse Depression Sister No problems noted. Son Depression Social History Smoking/Tobacco Use Status: Current every day Tobacco Type: cigarettes Tobacco: How many years used: 26 Quit status: considering quitting Second Hand Exposure: Yes Smoking risk assessment performed?: Yes Alcohol Intake: former Drug use: Daily Substance use type: marijuana, crack/cocaine, opiates and other Details: fentanyl use daily; stopped using on saturday09/09/2023 used cocaine 3 days ago Caregiver/Support person: No Household members: spouse Communication Needs: None Pets and animals: Yes Sexually active: Yes Do you think of yourself as: straight/heterosexual What is your relationship status?: How often do you talk on the phone with friends or family?: three or more times per week How often do you get together with friends or relatives?: once per week How often do you attend confucianism or latter day services?: decline to answer Do you belong to any clubs or organized social groups?: no Panel score (0-1 are the most socially isolated patients): 2 Frequency: does not exercise Special matt needs: No Do you feel safe at home: Yes Do you feel safe in your relationship?: Yes Discharge Plan Disposition Patient Disposition: Eloped Condition: Fair Discharge Details Chief Complaint: DrugWithdr/MAT Clinical Impression: Drug withdrawal, Drug abuse, Essential hypertension Primary Care Provider: Mauro Reis ED Provider: Robert Ziegler Home Meds and New Rx's Prescriptions: No Action hydrochlorothiazide 50 mg tablet 50 mg PO DAILY Qty: 90 0RF lisinopril 40 mg tablet 40 mg PO DAILY Qty: 90 3RF clindamycin HCl 300 mg capsule 300 mg PO TID Qty: 15 0RF atorvastatin 40 mg tablet 40 mg PO QPM Qty: 90 4RF Patient Comments: does not take levothyroxine 125 mcg tablet 125 mcg PO DAILY Qty: 90 4RF pregabalin 100 mg capsule 100 mg PO TID Qty: 270 3RF ibuprofen 800 mg tablet 800 mg PO BID PRN (Reason: pain) Qty: 90 0RF cyclobenzaprine 10 mg tablet See Rx Instructions .ROUTE .COMPLEX Qty: 30 1RF Dose Instruction: TAKE ONE TABLET BY MOUTH AT BEDTIME NEEDED FOR MUSCLE SPASM Rx Instructions: TAKE ONE TABLET BY MOUTH AT BEDTIME NEEDED FOR MUSCLE SPASM acetaminophen [Tylenol] 325 mg Capsule 650 mg PO DAILY melatonin 10 mg Tablet 10 mg PO HS PRN ondansetron 4 mg tablet,disintegrating 4 mg PO Q6H PRNQty: 20 0RF Rx Instructions: Take 1 tab by mouth every 6 hours as needed for nausea dicyclomine 10 mg capsule 10 mg PO TID Qty: 30 0RF Rx Instructions: take for abdominal pain Discharge Data Discharge Date/Time-TO BE ENTERED AT DEPARTURE: 09/13/23 13:37
[2023-09-13 12:18] LABS: Abs Immature Grans 0.07 10^3/uL (0.0-0.06); Absolute Basophil Count 0.09 10^3/uL (0.0-0.2); Absolute Lymphocyte Count 2.28 10^3/uL (1.2-3.4); Absolute Monocyte Count 0.56 10^3/uL (0.1-0.8); Basophils % 0.6; Eosinophils % 0.1; Immature Grans % 0.4; Lymphocytes % 14.6; MCH 28.9 pg (27.0-33.0); MCHC 33.8 % (32.0-36.0); MCV 86 fL (80-95); MPV 9.4 fL (8.0-11.0); Monocytes % 3.6; Neutrophils % 80.7; Platelet Count 389 10^3/uL (130-400); RDW 14.7 % (11.8-14.1); RDW-SD 45.1 fL; WBC 15.63 10^3/uL (4.4-10.8)
[2023-09-13 12:21] LABS: Lipase 20 U/L (16-77)
[2023-09-13 12:27] LABS: ALT 47 U/L (16-63); AST 30 U/L (15-37); Alkaline Phosphatase 135 U/L (46-116); Anion Gap 11.3 mmol/L (3-11); BUN 18 mg/dL (7-18); Bilirubin, Total 0.5 mg/dL (0.2-1.0); CO2 30.7 mmol/L (21.0-32.0); CREATININE 0.8 mg/dL (0.70-1.30); Calcium 10.1 mg/dL (8.5-10.1); Chloride 102 mmol/L (98-107); Estimated GFR 111.22 (mL/min/1.73m2); Glucose 133 mg/dL (74-106); Potassium 3.6 mmol/L (3.5-5.1); Sodium 144 mmol/L (136-145); Total Protein 9.4 g/dL (6.4-8.2)
[2023-09-13 12:29] LABS: Absolute Eosinophil Count 0.02 10^3/uL (0.0-0.7); Absolute Neutrophil Count 12.61 10^3/uL (1.2-6.7)
[2023-09-13] MEDS: Ketorolac 30 MG/ML VIAL IVP (12:30)
[2023-09-13 12:31] LABS: HGB 19.6 g/dL (13.5-17.5); RBC 6.78 10^6/uL (4.36-5.78)
[2023-09-13] MEDS: Ondansetron 4 MG/2 ML VIAL IVP (12:32)
[2023-09-13] MEDS: LORazepam 2 MG/ML VIAL 1 MG IVP (12:33)
[2023-09-13] MEDS: Normal Saline 1,000 ML 1000 ML IV (12:33)
[2023-09-13 12:47] LABS: Bilirubin Small (Negative); Blood Negative (Negative); Clarity Clear (Clear); Glucose Negative (Negative); Ketones Negative (Negative); Leukocyte Esterase Negative (Negative); Nitrite Negative (Negative)
[2023-09-13 12:59] VITALS: BP 201/91; PULSE 65; RESP 14; O2SAT 99
[2023-09-13 13:05] VITALS: BP 201/91; PULSE 67; RESP 18; O2SAT 99
[2023-09-13 13:13] LABS: *AMPHETAMINES SCREEN URINE Negative (Negative); *BARBITURATES SCREEN URINE Negative (Negative); *BENZODIAZEPINES SCREEN URINE Negative (Negative); Cannabinoids THC Negative (Negative); Cocaine Screen,Urine Positive (Negative); METHADONE URINE SCREEN Negative (Negative); OPIATES URINE SCREEN Negative (Negative)
[2023-09-13 13:16] LABS: Bacteria Negative HPF (Negative); Epithelial Cells Moderate HPF (Negative); Mucus Heavy (Negative); Other Cells Rare Renal (Negative)
[2023-09-13 13:17] LABS: Tricyclic Antidepressants Negative (Negative)
[2023-09-13 13:18] LABS: C & S Indicated? No
[2023-09-13 13:45] LABS: Diff Comment Diff Reviewed; RBC Morphology Normal
== END 2023-09-13 13:37 | disposition left against medical advice (07) ==
LOC: ER 11:42
PROVIDERS: Emergency Provider Physician Assistant; PCP Family Medicine
DX: F14.13 Cocaine abuse, unspecified with withdrawal (principal); F15.10 Other stimulant abuse, uncomplicated; I10 Essential (primary) hypertension; E03.9 Hypothyroidism, unspecified; F41.9 Anxiety disorder, unspecified; F32.A Depression, unspecified; F17.210 Nicotine dependence, cigarettes, uncomplicated; Z91.148 Patient's other noncompliance with medication regimen for other reason; Z79.899 Other long term (current) drug therapy; Z53.29 Procedure and treatment not carried out because of patient's decision for other reasons
CPT/HCPCS: 80053; 80307; 83690; 96361; 96374; 96375; 99284; 81003; 81015; 85025; J1885; J2060; J2405

== ENCOUNTER 2023-12-22 11:59 | Emergency (ER) | payer OTHER, SELFPAY ==
[2023-12-22 12:06] VITALS: BP 208/114; PULSE 81; RESP 16; TEMP 37.4; O2SAT 98
--- NOTE | 2023-12-22 12:15 | DI.RAD_ITS ---
Exam(s) XR SHOULDER RT COMPLETE 2+V EXAM: XR SHOULDER RT COMPLETE 2+V CLINICAL HISTORY: pain. TECHNIQUE: 2D digital imaging was performed. COMPARISON: No exams were available for comparison FINDINGS: Four views. No evidence of fracture or dislocation nor abnormal soft tissue calcifications. Subacromial space is not diminished. Slight irregularity of the osseous glenoid is noted which may be on developmental b asis. No fracture lines identified. Coracoid process appears unremarkable. Clavicle unremarkable bone density normal no osseous lesions. IMPRESSION: Slight irregularity of the osseous glenoid noted which may be developmentally shallow. No fracture o r dislocation. If clinically indicated further study with CT scan or MRI can be performed DATA REPOSITORY: RADIATION DOSE DELIVERED:
--- NOTE | 2023-12-22 12:15 | DI.CT_ITS ---
Exam(s) CT LUMBAR SPINE WO EXAM: CT LUMBAR SPINE WO CLINICAL HISTORY: mid lumbar pain. TECHNIQUE: Imaging Protocol: Axial computed tomography images with coronal and sagittal reformatted images were created and reviewed COMPARISON: CT THORACIC SPINE WO CONTRAST from 01/03/2016 FINDINGS: Bones: There are no fractures, listhesis, nor pars defects. There are no lytic osseous lesions evide nt.No disc space narrowing INDIVIDUAL LEVELS: T12-L1:No disc herniation nor canal stenosis. Facet joints unremarkable. No foraminal stenosis. L1-2: No disc herniation nor canal stenosis. Facet joints unremarkable. No foraminal stenosis. L2-3: No disc herniation nor canal stenosis. Facet joints unremarkable. No Foraminal stenosis L3-4: No disc herniation nor canal stenosis. Facet joints unremarkable. No foraminal stenosis. L4-5: Broad annular bulging and subtle suggestion of posterolateral left disc protrusion. L5-S1: No disc herniation or canal stenosis. The visualized sacroiliac joints and sacrum appear unremarkable. PARASPINAL SOFT TISSUES: Visualized paraspinal tissues appear unremarkable. IMPRESSION: 1. No fractures. No listhesis. No osseous lesions. 2. Suspect disc herniation at L4-5 level. Recommend follow-up outpatient MRI RADIATION DOSE DELIVERED: 913.23mGy.cm Total DLP DATA REPOSITORY: All CT scans at this facility are submitted to the National Radiology Data Registry (NRDR) Dose Index Registry (DIR) with the [employer] (ACR). RADIATION OPTIMIZATION: All CT scans at this facility use at least one of these dose optimization te chniques: automated exposure control; mA and/or kV adjustment per patient size (includes targeted exa ms where dose is matched to clinical indication); or iterative reconstruction.
--- NOTE | 2023-12-22 12:22 | ED.GENADUL_ITS ---
Discharge Plan Disposition Patient Disposition: Home Condition: Stable Discharge Details Clinical Impression: Lumbar back pain, Pain in right shoulder Primary Care Provider: Mauro Reis ED Provider: Paul Guajardo Wayne Meds and New Rx's Prescriptions: Continued hydrochlorothiazide 50 mg tablet 50 mg PO DAILY Qty: 90 0RF lisinopril 40 mg tablet 40 mg PO DAILY Qty: 90 3RF Hold Instructions: Pt Stopped/Never Started levothyroxine 125 mcg tablet 125 mcg PO DAILY Qty: 90 4RF Hold Instructions: Pt Stopped/Never Started pregabalin 100 mg capsule 100 mg PO TID Qty: 270 3RF Hold Instructions: Pt Stopped/Never Started ibuprofen 800 mg tablet 800 mg PO BID PRN (Reason: pain) Qty: 90 0RF Hold Instructions: Pt Stopped/Never Started acetaminophen [Tylenol] 325 mg Capsule 650 mg PO DAILY melatonin 10 mg Tablet 10 mg PO HS PRN Hold Instructions: Pt Stopped/Never Started No Action atorvastatin 40 mg tablet 40 mg PO QPM Qty: 90 4RF Hold Instructions: Pt Stopped/Never Started Patient Comments: does not take Discharge Instructions Additional Instructions: Follow-up with your primary care provider within 1 week. You should be on blood pressure medications, discussed this with your primary care provider as well. Feel more ill or have new symptoms such as high fevers return to the emergency department for reevaluation You can take 1000 mg of acetaminophen and 600 mg ibuprofen every 6 hours as needed HPI General Mode of arrival: ambulatory . Date/Time Provider Initiated Documentation: 12/22/23 12:01 . Limitations to Documentation: no limitations . Information obtained by: patient . History of Present Illness 43 year old M presents to the emergency department with the chief complaint of lumbar back pain, described as moderate, Quality is described as sharp, Patient started experiencing this year(s) (1) and it has been constant. No relieving factors improve symptom(s), No exacerbating factors reported . Patient notes denies chest pain, fever/chills and shortness of breath. Patient did receive the following treatments prior to arrival, none Related Data Home Medications Medication Instructions Recorded Confirmed atorvastatin 40 mg tablet 40 mg PO QPM #90 tabs 11/03/21 12/22/23 levothyroxine 125 mcg tablet 125 mcg PO DAILY #90 tabs 11/23/21 12/22/23 acetaminophen 325 mg capsule 650 mg PO DAILY 07/22/22 12/22/23 (Tylenol) melatonin 10 mg tablet 10 mg PO HS PRN 07/22/22 12/22/23 pregabalin 100 mg capsule 100 mg PO TID chronic pain #270 11/01/22 12/22/23 caps hydrochlorothiazide 50 mg tablet 50 mg PO DAILY #90 tabs 11/28/22 09/16/23 lisinopril 40 mg tablet 40 mg PO DAILY #90 tabs 12/26/22 12/22/23 ibuprofen 800 mg tablet 800 mg PO BID PRN pain #90 tabs 01/28/23 12/22/23 Previous Rx's Medication Instructions Recorded atorvastatin 40 mg tablet 40 mg PO QPM #90 tabs 11/03/21 levothyroxine 125 mcg tablet 125 mcg PO DAILY #90 tabs 11/23/21 pregabalin 100 mg capsule 100 mg PO TID chronic pain #270 11/01/22 caps hydrochlorothiazide 50 mg tablet 50 mg PO DAILY #90 tabs 11/28/22 lisinopril 40 mg tablet 40 mg PO DAILY #90 tabs 12/26/22 ibuprofen 800 mg tablet 800 mg PO BID PRN pain #90 tabs 01/28/23 Allergies Allergy/AdvReac Type Severity Reaction Status Date / Time amoxicillin Allergy anaphylaxis, Verified 12/22/23 12:04 rash, hives Penicillins Allergy anaphylaxis, Verified 12/22/23 12:04 hives, rash Sulfa (Sulfonamide Allergy breaks out Verified 12/22/23 12:04 Antibiotics) in hives, diarrhea, anaphylaxis clonidine AdvReac makes Verified 12/22/23 12:04 chest tight tramadol AdvReac I don't Verified 12/22/23 12:04 take tramadol. General Stated Complaint: Nk/Back Pain CAROL: 3 Review of Systems All systems reviewed & are unremarkable except as noted in HPI and below Constitutional Constitutional: Denies chills, Denies fever(s) and Denies weakness Cardiovascular Cardiovascular: Denies chest pain and Denies dyspnea Respiratory Respiratory: Denies cough and Denies dyspnea Gastrointestinal Gastrointestinal: Denies abdominal pain, Denies nausea and Denies vomiting Musculoskeletal Musculoskeletal: Denies joint swelling Neurologic Neurologic: Denies weakness Psychiatric Psychiatric: Denies depression Exam Const General: no acute distress Orientation: alert HENMT Head: normal to inspection Ears: external ears normal General nose exam: external nose normal Mouth: moist mucous membranes Eyes General: appearance normal, both eyes and all related structures Neck Neck: normal visual inspection Resp Effort & Inspection: normal respiratory effort and able to speak in complete sentences Cardio Rate: regular rate Back/Spine/Pelvis Back: no CVA tenderness Skin General skin exam: no rashes or lesions noted Neuro General: patient alert and patient oriented x3 Extrem General: normal to inspection, full ROM and capillary refill normal Psych Mental Status: mental status grossly normal Course Vital Signs Vital signs: Vital Signs Temperature 37.4 C 12/22/23 12:06 Pulse 81 12/22/23 12:06 Respiratory Rate 16 12/22/23 12:06 Blood Pressure 208/114 H 12/22/23 12:06 Pulse Oximetry 98 12/22/23 12:06 Temperature 37.4 C 12/22/23 12:06 Temperature Source Temporal Artery Scan 12/22/23 12:06 Pulse 81 12/22/23 12:06 Respiratory Rate 16 12/22/23 12:06 Respiratory Effort Normal, Non-Labored 12/22/23 12:11 Blood Pressure 208/114 H 12/22/23 12:06 Blood Pressure Position Sitting 12/22/23 12:06 Pulse Oximetry 98 12/22/23 12:06 Oxygen Delivery Method Room Air 12/22/23 12:06 Oxygen Flow Rate 0 12/22/23 12:06 Pain Level 10 12/22/23 12:06 Comment ibu/tyl 3 hours ago 12/22/23 12:06 Medical Decision Making 43-year-old male with a history of prior substance abuse states he has been clean for several months now, hypertension but not taking his meds for months. He comes in today with chronic lower back pain without known trauma and also has some right shoulder pain. Denies any fevers, chills, states he never used IV drugs but only inhaled them when he was using. He is alert and oriented x 4 on arrival, localizes the pain to the mid lower lumbar region over L4-L5, no palpable or visible deformities, no saddle anesthesia, intact sensation and pulses. No abdominal tenderness. He has tenderness to the right anterior shoulder, with full range of motion, no erythema or warmth. Intact distal sensation and pulses in the arm. Suspect bursitis of the shoulder for strain, also suspect musculoskeletal chronic lower back pain but will check basic labs and obtain CT lumbar spine to evaluate for possible compression fracture and x- ray of the right shoulder to evaluate for possible fracture but this seems unlikely given lack of trauma. He has noted to have a systolic over 200 which I suspect is likely from not taking his blood pressure medications and also being in pain. Labs show white count of 11, no significant findings. CT imaging also negative and has his x-ray. Patient feels significantly better, still with no salicylate or concerning findings on exam, discussed results with him and he is comfortable with discharge, suspect musculoskeletal back and shoulder pain, advised to follow-up with his PCP and return precautions given Differential Diagnosis Differential Diagnosis: Fracture, bursitis, spasm Medical Records Medical records reviewed: Yes I reviewed the patient's medical records. Imaging Data Radiologic Study: Attestation: I personally reviewed and interpreted this imaging study as follows: Imaging: CT Scan Radiologist's impression: No acute findings on lumbar spine CT per [facility] Radiologic Study #2: Attestation: I personally reviewed and interpreted this imaging study as follows: Imaging: X-Ray Radiologist's impression: No acute findings on shoulder x-ray per [facility] Quality:SDOH Health Related Social Needs: Health related social needs inadequate housing, materi al hardship, food insecurity, transpo insecurity PFSH All Active Problems (Updated 12/22/23 @ 14:54 by Paul Guajardo MD) Pain in right shoulder (Acute) Lumbar back pain (Acute) Drug addiction (Acute) Bilateral lower extremity edema (Acute) Seasonal allergies (Acute) Chronic low back pain (Acute) Urinary incontinence (Acute) nocturnal Elevated alkaline phosphatase level (Acute) GGT also elevated- Abd US 06/25- liver with mild enlargement, no lesions. Hep panel neg Morbid obesity with BMI of 50.0-59.9, adult (Acute) Hyperlipidemia (Acute) Prediabetes (Acute) History of drug abuse (Acute) prescription pills, coke Hypothyroid (Chronic) Smoker (Chronic) 05/2021- 3 PPD 2021- 1.5 PPD Depressive disorder (Chronic) Bipolar I disorder (Chronic) Essential hypertension (Chronic) Attention deficit hyperactivity disorder, combined type (Chronic) Anxiety (Chronic) Obsessive-compulsive disorder (Chronic) Medical History COVID-19 virus infection (~05/2022) Abdominal pain Umbilical hernia Overweight Dorsopathy, unspecified Sensorineural hearing loss Hernia, umbilical 11/11/[address] Sesay. Gastroesophageal reflux disease Surgical History History of umbilical hernia repair Status post tonsillectomy S/P tendon repair Tonsillectomy Family History Mother Depression Emphysema lung Stroke Asthma Hypertension Hyperlipidemia Father Diabetes Essential hypertension Alcohol abuse Grandmother Diabetes Cancer Sister Alcohol abuse Depression Sister No problems noted. Son Depression Social History Smoking/Tobacco Use Status: Current every day Tobacco Type: cigarettes Tobacco: How many years used: 26 Quit status: considering quitting Second Hand Exposure: Yes Smoking risk assessment performed?: Yes Alcohol Intake: former Drug use: Daily Substance use type: marijuana, crack/cocaine, opiates and other Details: fentanyl use daily; stopped using on saturday09/09/2023, no IVDU Caregiver/Support person: No Household members: spouse Housing: apartment Communication Needs: None Pets and animals: Yes Sexually active: Yes Do you think of yourself as: straight/heterosexual What is your relationship status?: How often do you talk on the phone with friends or family?: three or more times per week How often do you get together with friends or relatives?: once per week How often do you attend methodist or tenriism services?: decline to answer Do you belong to any clubs or organized social groups?: no Panel score (0-1 are the most socially isolated patients): 2 Frequency: does not exercise Special matt needs: No Do you feel safe at home: Yes Do you feel safe in your relationship?: Yes
[2023-12-22 12:48] LABS: Abs Immature Grans 0.03 10^3/uL (0.0-0.06); Absolute Basophil Count 0.06 10^3/uL (0.0-0.2); Absolute Eosinophil Count 0.06 10^3/uL (0.0-0.7); Absolute Lymphocyte Count 2.69 10^3/uL (1.2-3.4); Absolute Monocyte Count 0.53 10^3/uL (0.1-0.8); Absolute Neutrophil Count 8.26 10^3/uL (1.2-6.7); Basophils % 0.5 %; Eosinophils % 0.5 %; HCT 48.6 % (40.0-50.0); Immature Grans % 0.3 %; Lymphocytes % 23.1 %; MCH 30.2 pg (27.0-33.0); MCHC 32.9 % (32.0-36.0); MCV 92 fL (80-95); MPV 9.1 fL (8.0-11.0); Monocytes % 4.6 %; Platelet Count 309 10^3/uL (130-400); RDW 12.8 % (11.8-14.1); RDW-SD 43.1 fL; WBC 11.63 10^3/uL (4.4-10.8)
[2023-12-22] MEDS: Normal Saline 1,000 ML 1000 ML IV (12:49)
[2023-12-22] MEDS: diazePAM 10 MG/2 ML SYR 5 MG IVP (12:52)
[2023-12-22] MEDS: Ketorolac 15 MG/ML VIAL IVP (12:53)
[2023-12-22 13:11] LABS: ALT 54 U/L (16-63); AST 22 U/L (15-37); Albumin 3.5 g/dL (3.4-5.0); Alkaline Phosphatase 97 U/L (46-116); Anion Gap 7.5 mmol/L (3-11); BUN 14 mg/dL (7-18); Bilirubin, Total 0.3 mg/dL (0.2-1.0); CO2 28.5 mmol/L (21.0-32.0); CREATININE 0.7 mg/dL (0.70-1.30); Calcium 8.7 mg/dL (8.5-10.1); Chloride 103 mmol/L (98-107); Glucose 101 mg/dL (74-106); Magnesium 1.8 mg/dL (1.8-2.4); Potassium 4.6 mmol/L (3.5-5.1); Sodium 139 mmol/L (136-145); TSH (W/Ref FT4) 5.24 uIU/mL (0.36-3.74); Total Protein 7.2 g/dL (6.4-8.2)
[2023-12-22 13:27] LABS: FREE T4 0.94 ng/dL (0.76-1.46)
[2023-12-22] MEDS: HYDROmorphone 2 MG/ML SYR 1 MG IVP (14:15)
--- NOTE | 2023-12-22 14:15 | DI.VRAD_ITS ---
PROCEDURE INFORMATION: Exam: CT Lumbar Spine Without Contrast Exam date and time: 12/22/2023 1:18 PM Age: 43 years old Clinical indication: Other: Mid lumbar pain TECHNIQUE: Imaging protocol: Computed tomography of the lumbar spine without contrast. Radiation optimization: All CT scans at this facility use at least one of these dose optimization techniques: automated exposure control; mA and/or kV adjustment per patient size (includes targeted exams where dose is matched to clinical indication); or iterative reconstruction. COMPARISON: CT CHEST/ABD/PEL W 22/07/2022 10:51 FINDINGS: Bones/joints: No acute fracture. Normal alignment. No significant disc bulge or herniation. No severe spinal canal stenosis. No significant neural foraminal narrowing. Soft tissues: Unremarkable. IMPRESSION: No acute findings. Dictated and Authenticated by: Jozef Mitchell MD. Ordering:KATY Miller MD
--- NOTE | 2023-12-22 14:15 | DI.VRAD_ITS ---
PROCEDURE INFORMATION: Exam: XR Right Shoulder Exam date and time: 12/22/2023 1:24 PM Age: 43 years old Clinical indication: Other: Pain TECHNIQUE: Imaging protocol: Radiologic exam of the right shoulder. Views: 2 or more views. COMPARISON: US EXTREMITY VENOUS BI 16/11/2022 10:06 FINDINGS: Bones/joints: Glenohumeral and acromioclavicular joints are intact. Acromial humeral interval is maintained. Soft tissues: Normal. No calcification. IMPRESSION: Normal shoulder Dictated and Authenticated by: Jozef Mitchell MD. Ordering:KATY Miller MD
[2023-12-22 15:51] VITALS: PULSE 69; RESP 18; O2SAT 96
[2023-12-22 18:22] LABS: Bilirubin Negative (Negative); Blood Negative (Negative); Clarity Clear (Clear); Glucose Negative (Negative); Ketones Negative (Negative); Leukocyte Esterase Negative (Negative); Nitrite Negative (Negative); Urobilinogen 0.2 mg/dL (Up to 0.2)
== END 2023-12-22 15:52 | disposition home or self-care (01) ==
PROVIDERS: Emergency Provider Emergency Medicine; PCP Family Medicine
DX: M25.511 Pain in right shoulder (principal); M54.50 Low back pain, unspecified; I10 Essential (primary) hypertension; T50.2X6A Underdosing of carbonic-anhydrase inhibitors, benzothiadiazides and other diuretics, initial encounter; T46.4X6A Underdosing of angiotensin-converting-enzyme inhibitors, initial encounter; Z91.128 Patient's intentional underdosing of medication regimen for other reason
CPT/HCPCS: 80053; 96374; 99284; 72131; 73030; 81003; 83735; 84439; 84443; 85025; 99283; J1170; J1885; J3360

== ENCOUNTER 2023-12-28 08:50 | Emergency (ER) | payer OTHER, SELFPAY ==
[2023-12-28 08:52] VITALS: BP 207/118; PULSE 70; RESP 18; TEMP 36.6; O2SAT 100
[2023-12-28] MEDS: Ketorolac 15 MG/ML VIAL IM (09:37)
[2023-12-28] MEDS: HYDROcodone 5/Acetaminophen 325 TAB PO (09:37)
[2023-12-28] MEDS: methylPREDNISolone ACETATE 80 MG/ML VIAL IM (09:37)
[2023-12-28] MEDS: Lidocaine 5% Patch 1 PATCH TP (09:37)
[2023-12-28 09:44] VITALS: BP 206/108; PULSE 69; RESP 18; TEMP 36.3; O2SAT 99
--- NOTE | 2023-12-28 10:20 | W.ED.GENAD ---
Discharge Plan Disposition Patient Disposition: Home Discharge Details Clinical Impression: Lumbar back pain Primary Care Provider: Mauro Reis ED Provider: Brian Pierre Home Meds and New Rx's Prescriptions: Continued hydrochlorothiazide 50 mg tablet 50 mg PO DAILY Qty: 90 0RF lisinopril 40 mg tablet 40 mg PO DAILY Qty: 90 3RF Hold Instructions: Pt Stopped/Never Started atorvastatin 40 mg tablet 40 mg PO QPM Qty: 90 4RF Hold Instructions: Pt Stopped/Never Started Patient Comments: does not take levothyroxine 125 mcg tablet 125 mcg PO DAILY Qty: 90 4RF Hold Instructions: Pt Stopped/Never Started pregabalin 100 mg capsule 100 mg PO TID Qty: 270 3RF Hold Instructions: Pt Stopped/Never Started ibuprofen 800 mg tablet 800 mg PO BID PRN (Reason: pain) Qty: 90 0RF Hold Instructions: Pt Stopped/Never Started acetaminophen [Tylenol] 325 mg Capsule 650 mg PO DAILY melatonin 10 mg Tablet 10 mg PO HS PRN Hold Instructions: Pt Stopped/Never Started Discharge Instructions Instructions: Low Back Strain (ED) Additional Instructions: We have given you a limited supply of narcotic after thorough discussion given your history you should only use these very sparingly and as needed for severe pain and discomfort. Otherwise continue to use the Tylenol and ibuprofen. It is important to continue mild activity but refrain from any heavy lifting, bending or twisting type motions. Return to the emergency department for any new or significant worsening of symptoms otherwise follow-up with your primary care provider as previously arranged for further management of your pain and discomfort. Referrals: Mauro Reis MD [Primary Care Provider] - 3 days [facility] General Mode of arrival: ambulatory. Date/Time Provider Initiated Documentation: 12/28/23 08:55. Limitations to Documentation: no limitations. Information obtained by: patient, family and RN notes reviewed. History of Present Illness 43 year old M presents to the emergency department with the chief complaint of Back pain, described as moderate, severe and similar to prior episodes, Patient extremity. Patient started experiencing this week(s) (2) and it has been constant. Immobilization improves symptom(s), Movement worsens symptoms . Patient notes no other symptoms.. Patient did receive the following treatments prior to arrival, NSAID Related Data Home Medications Medication Instructions Recorded Confirmed atorvastatin 40 mg tablet 40 mg PO QPM #90 tabs 11/03/21 12/28/23 levothyroxine 125 mcg tablet 125 mcg PO DAILY #90 tabs 11/23/21 12/28/23 acetaminophen 325 mg capsule 650 mg PO DAILY 07/22/22 12/28/23 (Tylenol) melatonin 10 mg tablet 10 mg PO HS PRN 07/22/22 12/28/23 pregabalin 100 mg capsule 100 mg PO TID chronic pain #270 11/01/22 12/28/23 caps hydrochlorothiazide 50 mg tablet 50 mg PO DAILY #90 tabs 11/28/22 12/28/23 lisinopril 40 mg tablet 40 mg PO DAILY #90 tabs 12/26/22 12/28/23 ibuprofen 800 mg tablet 800 mg PO BID PRN pain #90 tabs 01/28/23 12/28/23 Previous Rx's Medication Instructions Recorded atorvastatin 40 mg tablet 40 mg PO QPM #90 tabs 11/03/21 levothyroxine 125 mcg tablet 125 mcg PO DAILY #90 tabs 11/23/21 pregabalin 100 mg capsule 100 mg PO TID chronic pain #270 11/01/22 caps hydrochlorothiazide 50 mg tablet 50 mg PO DAILY #90 tabs 11/28/22 lisinopril 40 mg tablet 40 mg PO DAILY #90 tabs 12/26/22 ibuprofen 800 mg tablet 800 mg PO BID PRN pain #90 tabs 01/28/23 Allergies Allergy/AdvReac Type Severity Reaction Status Date / Time amoxicillin Allergy anaphylaxis, Verified 12/28/23 08:55 rash, hives Penicillins Allergy anaphylaxis, Verified 12/28/23 08:55 hives, rash Sulfa (Sulfonamide Allergy breaks out Verified 12/28/23 08:55 Antibiotics) in hives, diarrhea, anaphylaxis clonidine AdvReac makes Verified 12/28/23 08:55 chest tight tramadol AdvReac I don't Verified 12/28/23 08:55 take tramadol. General Stated Complaint: Nk/Back Pain CAROL: 3 Review of Systems Constitutional Constitutional: Denies chills and Denies fever(s) Cardiovascular Cardiovascular: Denies chest pain and Denies dyspnea on exertion Respiratory Respiratory: Denies cough and Denies dyspnea on exertion Gastrointestinal Gastrointestinal: Denies abdominal pain, Denies change in bowel habits, Denies diarrhea, Denies nausea and Denies vomiting Genitourinary Genitourinary: Denies difficulty urinating Musculoskeletal Musculoskeletal: Reports as per HPI and Reports back pain Neurologic Neurologic: Denies sensory deficit Exam Const General: cooperative and no acute distress Orientation: alert, awake and oriented x3 Neck Neck: normal visual inspection, full ROM and no meningeal signs Resp Effort & Inspection: normal respiratory effort Auscultation: clear to auscultation bilaterally Cardio Rate: regular rate Rhythm: regular rhythm Heart Sounds: S1 normal and S2 normal GI Palpation: no aortic enlargement, no masses and no pulsatile masses Back/Spine/Pelvis Thoracic/Lumbar Spine: thoracic and lumbar spine normal to inspection, pain with thoraco-lumbar ROM, paraspinal tenderness, thoraco-lumbar ROM limited, No thoracic spinal tenderness, lumbar spinal tenderness and straight leg raise positive Pelvis: no pain with anterior-posterior compression and no pain with lateral compression Neuro General: patient alert, patient awake and patient oriented x3 DTR's: Rt Patellar: 2+, Lt Patellar: 2+, Rt Ankle: 2+ and Lt Ankle: 2+ Course Vital Signs Vital signs: Vital Signs Temperature 36.6 C 12/28/23 08:52 Pulse 70 12/28/23 08:52 Respiratory Rate 18 12/28/23 08:52 Blood Pressure 207/118 H 12/28/23 08:52 Pulse Oximetry 100 12/28/23 08:52 Temperature 36.3 C L 12/28/23 09:44 Temperature Source Skin 12/28/23 09:44 Pulse 69 12/28/23 09:44 Respiratory Rate 18 12/28/23 09:44 Blood Pressure 206/108 H 12/28/23 09:44 Blood Pressure Position Sitting 12/28/23 08:52 Pulse Oximetry 99 12/28/23 09:44 Oxygen Delivery Method Room Air 12/28/23 09:44 Oxygen Flow Rate 0 12/28/23 09:44 Pain Level 10 12/28/23 09:44 Medical Decision Making Patient here for back pain. Patient states pain has been going on for the last 2 weeks. Denies any injury or trauma, denies IV drug use, denies significant bowel or bladder change or dysfunction, denies fever or chills, does state radiating pain down left leg but no significant extremity dysfunction or saddle anesthesia. Physical exam shows diffuse mid lumbar tenderness otherwise noncontributory exam. I do not feel that patient's presentation is consistent with ABDOMINAL AORTIC ANEURYSM, CAUDA EQUINA SYNDROME, EPIDURAL MASS LESION, SPINAL STENOSIS, OR HERNIATED DISK CAUSING SEVERE STENOSIS, thus I consider the discharge disposition reasonable. Patient was seen in the emergency department last week for similar presentation and had full evaluation with labs and CT imaging that showed no emergent findings. Patient denies any change in condition from then and states the only reason he is here is secondary to continued symptoms with minimal pain improvement. Patient given lidocaine patch, Depo-Medrol due to some radiating pain and question of sciatica, oral hydrocodone with acetaminophen and IM Toradol. Reassessed patient who states continued discomfort but of note patient is moving more easily and does appear more comfortable with movement and there is some appreciated improvement of overall appearance. We thoroughly discussed patient's previous narcotic and opiate abuse history and patient states that he quit cold turkey the beginning of this year and hasn't had any illegal opiate substances since then. After thorough discussion of pain control and given that he has already been using Tylenol and ibuprofen we will give limited supply of oxycodone but patient encouraged to continue to use [id number] and only use this for severe pain and discomfort. He does state he has a primary care follow-up on Saturday. Patient was informed that given his history that we would not continually be giving to go narcotics to assist his situation but I was agreeable to providing him with something to get him up until his appointment and to use judiciously which she agreed. We have discussed the diagnosis and risks, and we agree with discharging home to follow-up with their primary doctor. We also discussed returning to the Emergency Department immediately if new or worsening symptoms occur. We have discussed the symptoms which are most concerning (e.g., saddle anesthesia, urinary or bowel incontinence or retention, changing or worsening pain) that necessitate immediate return. After discussion of diagnosis and plan of care patient has no further needs, questions, or concerns and states clear understanding to return to the emergency department for any worsening symptoms. This documentation was generated using Tirendoation system, please disregard any oddities of phrase or misspellings. Quality:SDOH Health Related Social Needs: Health related social needs inadequate housing, material hardship, food insecurity, transpo insecurity PFSH All Active Problems Pain in right shoulder (Acute) Lumbar back pain (Acute) Drug addiction (Acute) Bilateral lower extremity edema (Acute) Seasonal allergies (Acute) Chronic low back pain (Acute) Urinary incontinence (Acute) nocturnal Elevated alkaline phosphatase level (Acute) GGT also elevated- Abd US 06/25- liver with mild enlargement, no lesions. Hep panel neg Morbid obesity with BMI of 50.0-59.9, adult (Acute) Hyperlipidemia (Acute) Prediabetes (Acute) History of drug abuse (Acute) prescription pills, coke Hypothyroid (Chronic) Smoker (Chronic) 05/2021- 3/ PPD 2021- 1.5 PPD Depressive disorder (Chronic) Bipolar I disorder (Chronic) Essential hypertension (Chronic) Attention deficit hyperactivity disorder, combined type (Chronic) Anxiety (Chronic) Obsessive-compulsive disorder (Chronic) Medical History COVID-19 virus infection (~05/2022) Abdominal pain Umbilical hernia Overweight Dorsopathy, unspecified Sensorineural hearing loss Hernia, umbilical 11/11/[address] Sesay. Gastroesophageal reflux disease Surgical History History of umbilical hernia repair Status post tonsillectomy S/P tendon repair Tonsillectomy Family History Mother Depression Emphysema lung Stroke Asthma Hypertension Hyperlipidemia Father Diabetes Essential hypertension Alcohol abuse Grandmother Diabetes Cancer Sister Alcohol abuse Depression Sister No problems noted. Son Depression Social History Smoking/Tobacco Use Status: Current every day Tobacco Type: cigarettes Tobacco: How many years used: 26 Quit status: considering quitting Second Hand Exposure: Yes Smoking risk assessment performed?: Yes Alcohol Intake: former Drug use: Daily Substance use type: former substance user, marijuana, crack/cocaine, opiates and other Details: fentanyl use daily; stopped using on saturday09/09/2023, no IVDU Caregiver/Support person: No Household members: spouse Housing: apartment Communication Needs: None Pets and animals: Yes Sexually active: Yes Do you think of yourself as: straight/heterosexual What is your relationship status?: How often do you talk on the phone with friends or family?: three or more times per week How often do you get together with friends or relatives?: once per week How often do you attend restorationist or baptism services?: decline to answer Do you belong to any clubs or organized social groups?: no Panel score (0-1 are the most socially isolated patients): 2 Frequency: does not exercise Special matt needs: No Do you feel safe at home: Yes Do you feel safe in your relationship?: Yes
[2023-12-28 10:45] VITALS: BP 180/101; PULSE 66; RESP 18; O2SAT 99
== END 2023-12-28 10:47 | disposition home or self-care (01) ==
PROVIDERS: Emergency Provider Nurse Practitioner Family; PCP Family Medicine
DX: M54.50 Low back pain, unspecified (principal); I10 Essential (primary) hypertension
CPT/HCPCS: 99283; J1010; J1885

== ENCOUNTER 2024-05-22 09:21 | Emergency (ER) | payer OTHER, SELFPAY ==
[2024-05-22] VITALS (13 sets, daily range): BP systolic 182–206; BP diastolic 98–155; PULSE 66–78; RESP 9–23; TEMP 36.7–36.8; O2SAT 94–99
--- NOTE | 2024-05-22 09:15 | RT.EKG_ITS ---
APPROVED REPORT Exam: Resting ECG Reason for Exam: Withdrawal Patient Location: E HR:78 bpm ECG Measurements Heart Rate 78 AXIS IN 155 P 35 QRSd 99 QRS 36 QT 385 T 10 QTc 437 Conclusion Sinus rhythm...normal P axis, V-rate 60- 99 Physician: no stemi, q wave in III, similiar to previous ekg from 08/10/22
--- NOTE | 2024-05-22 09:53 | ED.GENADUL_ITS ---
Discharge Plan Disposition Patient Disposition: Home Condition: Good Discharge Details Clinical Impression: Opiate withdrawal Primary Care Provider: Mauro Reis ED Provider: Félix Lawton Home Meds and New Rx's Prescriptions: No Action hydrochlorothiazide 50 mg tablet 50 mg PO DAILY Qty: 90 0RF atorvastatin 40 mg tablet 40 mg PO QPM Qty: 90 4RF Patient Comments: does not take levothyroxine 125 mcg tablet 125 mcg PO DAILY Qty: 90 4RF ibuprofen 800 mg tablet 800 mg PO BID PRN (Reason: pain) Qty: 90 0RF acetaminophen [Tylenol] 325 mg Capsule 650 mg PO DAILY melatonin 10 mg Tablet 10 mg PO HS PRN Discharge Instructions Instructions: Substance Misuse Treatment Additional Instructions: Please leave the clonidine patch on for the time being. Please take it off if you have any development of chest pain or discomfort. Please go directly to the [facility] clinic just down to [place]. Please follow closely with your recovery coaches. If you notice any worsening of your symptoms, or any new symptoms such as vomiting, diarrhea, fever, chills, shortness of breath, chest pain, numbness, weakness, or fainting , please return immediately to the emergency department for reevaluation. Please follow up with your primary care provider as soon as possible for reassessment and reevaluation. As always, it was a pleasure participating in your medical care today. Referrals: Mauro Reis MD [Primary Care Provider] - [facility] General Date/Time Provider Initiated Documentation: 05/22/24 09:21 . [facility] Narrative: This is a 43-year-old gentleman with a past medical history that includes OCD, anxiety, ADHD, hypertension, bipolar disorder, depression, current smoker, hypothyroidism, BMI of 34.4, chronic low back pain, prediabetes, umbilical hernia, tonsillectomy, drug abuse including both smoking fentanyl and cocaine who presents today for evaluation of withdrawal. Patient states that he is trying to come off fentanyl and cocaine. He states that he last used cocaine 1 week ago, and last use fentanyl 2 days ago. Since then he feels like he is jittery, very anxious, nauseous, and has bugs crawling under his skin. He is coming in looking for help. He denies any homicidal or suicidal ideations. He states that this is the third time he has tried to come off of these drugs, usually he is able to go oh few weeks, but this time is been particularly challenging. He denies any other complaints at this time. He has not been taking his antihypertensive medications either. He would like to be reestablished with a new primary care provider. No other complaints at this time. No other modifying factors. Significant other is at bedside and very supportive. Related Data Home Medications ?Medication ?Instructions ?Recorded ?Confirmed atorvastatin 40 mg tablet 40 mg PO QPM #90 tabs 11/03/21 05/22/24 levothyroxine 125 mcg tablet 125 mcg PO DAILY #90 tabs 11/23/21 05/22/24 acetaminophen 325 mg capsule 650 mg PO DAILY 07/22/22 05/22/24 (Tylenol) melatonin 10 mg tablet 10 mg PO HS PRN 07/22/22 05/22/24 hydrochlorothiazide 50 mg tablet 50 mg PO DAILY #90 tabs 11/28/22 05/22/24 ibuprofen 800 mg tablet 800 mg PO BID PRN pain #90 tabs 01/28/23 05/22/24 Previous Rx's ?Medication ?Instructions ?Recorded atorvastatin 40 mg tablet 40 mg PO QPM #90 tabs 11/03/21 levothyroxine 125 mcg tablet 125 mcg PO DAILY #90 tabs 11/23/21 hydrochlorothiazide 50 mg tablet 50 mg PO DAILY #90 tabs 11/28/22 ibuprofen 800 mg tablet 800 mg PO BID PRN pain #90 tabs 01/28/23 Allergies Allergy/AdvReac Type Severity Reaction Status Date / Time amoxicillin Allergy anaphylaxis, Verified 05/22/24 09:30 rash, hives Penicillins Allergy anaphylaxis, Verified 05/22/24 09:30 hives, rash Sulfa (Sulfonamide Allergy breaks out Verified 05/22/24 09:30 Antibiotics) in hives, diarrhea, anaphylaxis clonidine AdvReac makes Verified 05/22/24 09:30 chest tight tramadol AdvReac I don't Verified 05/22/24 09:30 take tramadol. General Stated Complaint: DrugWithdr/MAT CAROL: 3 Review of Systems All systems reviewed & are unremarkable except as noted in HPI and below Exam Narrative Exam Narrative: 1.Const: Well-nourished, Well-developed, appearing stated age 2.Eyes: PERRL, no conjunctival injection, and symmetrical lids. 3.ENT: Atraumatic external nose and ears. Moist MM. Neck: Symmetric, trachea midline, No thyromegaly. 4.CVS: +S1/S2, No murmurs or gallops. Peripheral pulses 2+ and equal in all extremities. Brisk capillary refill in all extremities. 5.RESP: Unlabored respiratory effort. Clear to auscultation bilaterally. No wheezes rales or rhonchi 6.GI: Soft, Nontender/Nondistended, No hepatosplenomegaly. No guarding or rebound. 7.MSK: Normocephalic/Atraumatic, Extremities w/o deformity or ttp No cyanosis or clubbing, Normal movement of all extremities 8.Skin: Warm, Dry. No rashes or lesions. 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 Sensation grossly intact, no focal neurologic deficits. 10.Psych: (AAO) x3. Appropriate mood and affect, except he is slightly anxious Course Vital Signs Vital signs: Vital Signs Temperature 36.7 C 05/22/24 09:24 Pulse 77 05/22/24 09:24 Respiratory Rate 15 05/22/24 09:24 Blood Pressure 200/102 H 05/22/24 09:24 Pulse Oximetry 99 05/22/24 09:24 Temperature 36.7 C 05/22/24 09:24 Temperature Source Oral 05/22/24 09:24 Pulse 77 05/22/24 09:24 Respiratory Rate 15 05/22/24 09:24 Blood Pressure 200/102 H 05/22/24 09:24 Blood Pressure Position Sitting 05/22/24 09:24 Pulse Oximetry 99 05/22/24 09:24 Oxygen Delivery Method Room Air 05/22/24 09:24 Oxygen Flow Rate 0 05/22/24 09:24 Pain Level 0 05/22/24 09:24 Medical Decision Making This is a 43-year-old gentleman with a past medical history that includes OCD, anxiety, ADHD, hypertension, bipolar disorder, depression, current smoker, hypothyroidism, BMI of 34.4, chronic low back pain, prediabetes, umbilical hernia, tonsillectomy, drug abuse including both smoking fentanyl and cocaine who presents today for evaluation of withdrawal. Patient states that he is trying to come off fentanyl and cocaine. He states that he last used cocaine 1 week ago, and last use fentanyl 2 days ago. Since then he feels like he is jittery, very anxious, nauseous, and has bugs crawling under his skin. He is coming in looking for help. He denies any homicidal or suicidal ideations. He states that this is the third time he has tried to come off of these drugs, usually he is able to go oh few weeks, but this time is been particularly challenging. He denies any other complaints at this time. He has not been taking his antihypertensive medications either. He would like to be reestablished with a new primary care provider. No other complaints at this time. No other modifying factors. Significant other is at bedside and very supportive. Exam demonstrates an anxious appearing but otherwise well-appearing male, vital signs do demonstrate hypertension. Patient is looking for help. No red flags of homicidal or suicidal ideations. No track brown. Patient is looking for help, and we are happy to provide symptomatic relief. We will recruit help of the recovery coaches. I did discuss Zofran and clonidine patch. He previously had some adverse side effects from taking the oral clonidine but he did agree to try the clonidine patch understanding the risks and benefits. EKG here is benign with no evidence of STEMI or significant interval abnormality. We we will start the symptom control with the clonidine and Zofran, reach out to the [facility] clinic, monitor closely and reassess. 10:18 AM We discussed the case with the [facility] clinic, they have agreed to take the patient down there right away for reassessment. They will also perform dosing down there as well. They prefer dosing down there rather than appearing if the patient would be able to tolerate it. Patient has tolerated the clonidine very well, and has had no difficulty or complication with it so far. Zofran notably helped his symptoms as well for his nausea. Patient agrees with plan, patient has seen the head men's golf coach here in the ED, and feels comfortable with the plan moving forward. They will go directly to the [facility]. I have extensively reviewed the treatment plan and discharge instructions with the patient and their family. I have addressed all patient concerns at this time. The patient and family was made aware of what symptoms to monitor for that would warrant a return to the emergency department. Discussed the plan with the patient and family, they demonstrate verbal understanding and agreement with our assessment and plan at this time. The documentation in this chart was dictated using [employer] dictation software. Please excuse any dictation errors. Quality:SDOH Health Related Social Needs: Health related social needs inadequate housing(Z59.1), material hardship(utilities)(Z59.87), food insecurity(Z59.41), transportation insecurity(Z59.82) PFSH All Active Problems (Updated 05/22/24 @ 10:18 by Félix Lawton DO) Opiate withdrawal (Acute) Drug addiction (Acute) Bilateral lower extremity edema (Acute) Seasonal allergies (Acute) Chronic low back pain (Acute) Urinary incontinence (Acute) nocturnal Elevated alkaline phosphatase level (Acute) GGT also elevated- Abd US 06/25- liver with mild enlargement, no lesions. Hep panel neg Morbid obesity with BMI of 50.0-59.9, adult (Acute) Hyperlipidemia (Acute) Prediabetes (Acute) History of drug abuse (Acute) prescription pills, coke Hypothyroid (Chronic) Smoker (Chronic) 05/2021- 3 PPD 2021- 1.5 PPD Depressive disorder (Chronic) Bipolar I disorder (Chronic) Essential hypertension (Chronic) Attention deficit hyperactivity disorder, combined type (Chronic) Anxiety (Chronic) Obsessive-compulsive disorder (Chronic) Medical History COVID-19 virus infection (~05/2022) Abdominal pain Umbilical hernia Overweight Dorsopathy, unspecified Sensorineural hearing loss Hernia, umbilical 11/11/[address] Sesay. Gastroesophageal reflux disease Surgical History History of umbilical hernia repair Status post tonsillectomy S/P tendon repair Tonsillectomy Family History Mother Depression Emphysema lung Stroke Asthma Hypertension Hyperlipidemia Father Diabetes Essential hypertension Alcohol abuse Grandmother Diabetes Cancer Sister Alcohol abuse Depression Sister No problems noted. Son Depression Social History Smoking/Tobacco Use Status: Current every day Tobacco Type: cigarettes Tobacco: How many years used: 26 Quit status: considering quitting Second Hand Exposure: Yes Smoking risk assessment performed?: Yes Alcohol Intake: former Drug use: Daily Substance use type: former substance user, marijuana, crack/cocaine, opiates and other Details: fentanyl use daily; stopped using on saturday09/09/2023, no IVDU Caregiver/Support person: No Household members: spouse Housing: apartment Communication Needs: None Pets and animals: Yes Sexually active: Yes Do you think of yourself as: straight/heterosexual What is your relationship status?: How often do you talk on the phone with friends or family?: three or more times per week How often do you get together with friends or relatives?: once per week How often do you attend congregation or synagogue services?: decline to answer Do you belong to any clubs or organized social groups?: no Panel score (0-1 are the most socially isolated patients): 2 Frequency: does not exercise Special matt needs: No Do you feel safe at home: Yes Do you feel safe in your relationship?: Yes
[2024-05-22] MEDS: cloNIDine 0.1 MG PATCH TD (10:03)
[2024-05-22] MEDS: Ondansetron O.D.T. 4 MG TABEF PO (10:03)
[2024-05-22 10:45] LABS: *AMPHETAMINES SCREEN URINE Negative (Negative); *BARBITURATES SCREEN URINE Negative (Negative); *BENZODIAZEPINES SCREEN URINE Negative (Negative); Cannabinoids THC Negative (Negative); Cocaine Screen,Urine Positive (Negative); METHADONE URINE SCREEN Negative (Negative); OPIATES URINE SCREEN Negative (Negative); Tricyclic Antidepressants Negative (Negative)
== END 2024-05-22 10:28 | disposition home or self-care (01) ==
PROVIDERS: Emergency Provider Student in an Organized Health Care Education/Training Program; PCP Family Medicine
DX: F11.93 Opioid use, unspecified with withdrawal (principal)
CPT/HCPCS: 80307; 93005; 99283; 93010

== ENCOUNTER 2024-06-02 09:09 | Outpatient (CLI) | payer OTHER, SELFPAY ==
--- NOTE | 2024-06-02 06:15 | DI.US_ITS ---
Exam(s) US SOFT TISSUE HEAD OR NECK EXAM: US SOFT TISSUE HEAD OR NECK CLINICAL HISTORY: ? lipoma to right lower neck. TECHNIQUE: Ultrasound was performed using standard protocol. COMPARISON: CT CT CHEST PE CTA from 10/10/[address] LUMBAR SPINE WO from 12/22/2023 CR,XR XR SHOULDER RT COMPLETE 2+V from 12/22/2023 FINDINGS: Sonographic assessment utilizing grayscale and color Doppler imaging was performed and targeted to th e area of clinical concern. The area of palpable abnormality corresponds to a homogeneous, fatty echogenicity circumscribed lesio n consistent with a lipoma. It measures 4.4 x 4.3 x 1.9 cm. No internal vascularity or calcificatio ns. IMPRESSION: Palpable abnormality is consistent with a lipoma in the right lower neck/supraclavicular region. DATA REPOSITORY:
== END 2024-06-02 09:29 ==
LOC: DI 09:10
PROVIDERS: PCP Nurse Practitioner Family; Visit Provider Nurse Practitioner Family
DX: D17.0 Benign lipomatous neoplasm of skin and subcutaneous tissue of head, face and neck (principal)
CPT/HCPCS: 76536

== ENCOUNTER 2024-11-04 03:12 | Outpatient (CLI) | payer OTHER, SELFPAY ==
[2024-11-04 12:42] LABS: Abs Immature Grans 0.03 10^3/uL (0.0-0.06); Absolute Basophil Count 0.06 10^3/uL (0.0-0.2); Absolute Eosinophil Count 0.17 10^3/uL (0.0-0.7); Absolute Lymphocyte Count 2.46 10^3/uL (1.2-3.4); Absolute Monocyte Count 0.55 10^3/uL (0.1-0.8); Absolute Neutrophil Count 4.66 10^3/uL (1.2-6.7); Basophils % 0.8 %; Eosinophils % 2.1 %; HCT 45.4 % (40.0-50.0); HGB 14.3 g/dL (13.5-17.5); Immature Grans % 0.4 %; MCH 30.2 pg (27.0-33.0); MCHC 31.5 % (32.0-36.0); MCV 96 fL (80-95); MPV 9.1 fL (8.0-11.0); Monocytes % 6.9 %; Neutrophils % 58.8 %; Platelet Count 237 10^3/uL (130-400); RBC 4.74 10^6/uL (4.36-5.78); RDW 13.4 % (11.8-14.1); WBC 7.93 10^3/uL (4.4-10.8)
[2024-11-04 12:55] LABS: Hemoglobin A1C 5.5 % (<5.7)
[2024-11-04 13:07] LABS: ALT 37 U/L (16-63); AST 27 U/L (15-37); Albumin 3.6 g/dL (3.4-5.0); Alkaline Phosphatase 93 U/L (46-116); Anion Gap 5.4 mmol/L (3-11); BUN 21 mg/dL (7-18); Bilirubin, Total 0.2 mg/dL (0.2-1.0); CO2 34.6 mmol/L (21.0-32.0); CREATININE 0.8 mg/dL (0.70-1.30); Calcium 9.2 mg/dL (8.5-10.1); Calculated LDL 105 mg/dL (<100); Chloride 105 mmol/L (98-107); Cholesterol 186 mg/dL (<200); Estimated GFR 110.53 (mL/min/1.73m2); Glucose 109 mg/dL (74-106); HDL Cholesterol 68 mg/dL (>or=40); Potassium 4.6 mmol/L (3.5-5.1); Sodium 145 mmol/L (136-145); TSH (W/Ref FT4) 7.92 uIU/mL (0.36-3.74); Total Protein 7.3 g/dL (6.4-8.2); Triglyceride 65 mg/dL (<150)
[2024-11-04 13:25] LABS: FREE T4 0.88 ng/dL (0.76-1.46)
[2024-11-05 09:55] LABS: HIV-1/2 Ag & Ab Screen Negative (Negative)
[2024-11-05 09:58] LABS: HBs Antibody, Quant <3.1 mIU/mL (See Note); Hep B Surface Ab Negative (See Note); Hepatitis B Core Antibody Negative (Negative); Hepatitis B Surface Antigen Negative (Negative)
[2024-11-05 10:11] LABS: Hepatitis C Ab w Rflx HCV PCR Negative (Negative)
[2024-11-05 15:03] LABS: Lab Add On Test DONE
[2024-11-05 22:43] LABS: Thyroglobulin Antibody <15 U/mL (<=60); Thyroperoxidase Antibody <28 U/mL (<=60)
== END 2024-11-04 03:13 | disposition home or self-care (01) ==
PROVIDERS: PCP Nurse Practitioner Family; Visit Provider Nurse Practitioner Family
DX: Z11.59 Encounter for screening for other viral diseases (principal); R73.03 Prediabetes; E03.8 Other specified hypothyroidism; Z11.4 Encounter for screening for human immunodeficiency virus [HIV]
CPT/HCPCS: 36415; 80053; 80061; 86376; 86704; 86706; 86803; 87340; 87389; 83036; 84439; 84443; 85025

== ENCOUNTER 2024-12-30 09:49 | Outpatient (CLI) | payer OTHER, SELFPAY ==
--- NOTE | 2024-12-30 09:30 | DI.RAD_ITS ---
Exam(s) XR KNEE RT 3V AP,LAT,JODI EXAM: XR KNEE RT 3V AP,LAT,JODI CLINICAL HISTORY: atraumatic x 2 months M25.561 PAIN RT KNEE. TECHNIQUE: 2D digital imaging was performed. Three views. COMPARISON: No exams were available for comparison FINDINGS: BONES: No acute fracture is present. No bony destructive lesion is seen. Mild spurring at the media l tibial plateau. JOINTS: The knee is normally aligned. No joint effusion is seen. SOFT TISSUE: Normal. IMPRESSION: Minimal degenerative changes. DATA REPOSITORY: RADIATION DOSE DELIVERED:
== END 2024-12-30 10:09 ==
LOC: DI 09:51
PROVIDERS: PCP Nurse Practitioner Family; Visit Provider Nurse Practitioner Family
DX: M25.561 Pain in right knee (principal)
CPT/HCPCS: 73562

== ENCOUNTER 2025-02-17 01:56 | Outpatient (CLI) | payer OTHER, SELFPAY ==
--- NOTE | 2025-02-17 07:45 | DI.RAD_ITS ---
Exam(s) XR FOOT RT COMPLETE EXAM: XR FOOT RT COMPLETE CLINICAL HISTORY: Right foot pain,M79.671. TECHNIQUE: 2D digital imaging was performed. COMPARISON: No exams were available for comparison FINDINGS: 3 views No evidence of fracture nor diastasis of the Lisfranc joint. Great toe metatarsophalangeal joint appears unremarkable. There is mild hallux valgus, similar to the opposite side. There are no soft tissue radiopaque foreign bodies in the right foot. In no bony lesions nor erosions evident. Moderate size inferior calcaneal spur is noted. There is also a small enthesophyte on the posterior calcaneus Achilles tendon insertion site. There is no vascular calcification in either foot. IMPRESSION: Mild hallux valgus. No other osseous findings in the foot and no radiopaque foreign bodies, as is seen in the opposite-left foot DATA REPOSITORY: RADIATION DOSE DELIVERED:
--- NOTE | 2025-02-17 07:45 | DI.RAD_ITS ---
Exam(s) XR FOOT LT COMPLETE EXAM: XR FOOT LT COMPLETE CLINICAL HISTORY: Left foot pain,M79.671. TECHNIQUE: 2D digital imaging was performed. COMPARISON: CR XR FOOT RT COMPLETE from 02/17/2025 FINDINGS: 3 views No evidence of fracture or diastasis of the Lisfranc joint. The great toe metatarsophalangeal joint appears unremarkable. There is mild hallux valgus. There is small inferior calcaneal spur. There is no calcification in the plantar fascia. There is a thin wire like radiopaque foreign body in the plantar soft tissues of the 4th toe. On the lateral view this appears to be superficially located in the subcutaneous region at this level. There is no evidence of osteomyelitis in the phalanges the 4th toe. IMPRESSION: Thin wire like radiopaque soft tissue foreign body in the 4th toe as described above. No acute osseous findings. Mild hallux valgus noted DATA REPOSITORY: RADIATION DOSE DELIVERED:
== END 2025-02-17 02:16 ==
LOC: DI 01:56
PROVIDERS: PCP Nurse Practitioner Family; Visit Provider Podiatrist
DX: M79.671 Pain in right foot (principal); M79.672 Pain in left foot; M20.22 Hallux rigidus, left foot; M20.21 Hallux rigidus, right foot
CPT/HCPCS: 73630

== ENCOUNTER 2025-04-21 15:19 | Emergency (ER) | payer OTHER, SELFPAY ==
[2025-04-21 15:20] VITALS: BP 164/105; PULSE 100; RESP 18; TEMP 36.6; O2SAT 97
--- NOTE | 2025-04-21 16:39 | NUR.NOTE ---
room 10 ready for pt at 1638 but he had left Nursing Note:
== END 2025-04-21 16:39 | disposition left against medical advice (07) ==
PROVIDERS: PCP Nurse Practitioner Family
DX: Z53.21 Procedure and treatment not carried out due to patient leaving prior to being seen by health care provider (principal)

== ENCOUNTER 2025-04-28 11:22 | Emergency (ER) | payer OTHER, SELFPAY ==
[2025-04-28 11:28] VITALS: BP 189/117; PULSE 92; RESP 18; TEMP 36.5; O2SAT 97
--- NOTE | 2025-04-28 11:30 | DI.RAD_ITS ---
Exam(s) XR FOOT RT COMPLETE EXAM: XR FOOT RT COMPLETE CLINICAL HISTORY: Foot pain, Dorsal foot. TECHNIQUE: 2D digital imaging was performed of the right foot. Three images were obtained. AP, oblique and lateral views were obtained. COMPARISON: CR XR FOOT RT COMPLETE from 02/17/2025 FINDINGS: BONES: No acute fracture is present. No bony destructive lesion is seen. There is an enthesophyte at the posterior calcaneus. There is a small plantar calcaneal spur. JOINTS: No dislocation present. SOFT TISSUE: Normal. IMPRESSION: 1. There is no acute fracture or dislocation. 2. Calcaneal spurs. DATA REPOSITORY: RADIATION DOSE DELIVERED:
--- NOTE | 2025-04-28 11:46 | ED.GENADUL_ITS ---
Discharge Plan Disposition Patient Disposition: Home Condition: Stable Discharge Details Clinical Impression: Chronic pain in right foot, Heel spur Primary Care Provider: Vee Hansen ED Provider: Hillary Sampson Home Meds and New Rx's Prescriptions: Continued methadone 10 mg/5 mL solution 120 - 160 mg PO Q12H Rx Instructions: 160mg in the morning and 120mg in the evening lisinopril 40 mg tablet 40 mg PO DAILY Qty: 90 3RF pregabalin [Lyrica] 75 mg capsule 75 mg PO BID Qty: 60 0RF Rx Instructions: 1 pill twice a day lorazepam 1 mg tablet 1 mg PO ONCE Qty: 1 0RF Rx Instructions: Take 15-30min before MRI Discharge Instructions Instructions: Heel Spurs (DC), Managing acute pain at home, Plantar Fasciitis Exercises, Foot Sprain ED Additional Instructions: At this time Xrays are improved relating to the hammer toes, continue wearing the toe lifts as previously instructed. You may freeze a water bottle and roll onto the bottom of your foot couple times a day. Continue to alternate Tylenol ibuprofen. Wear the walking boot as needed for comfort. When sitting or lying down elevate your leg and apply ice to the top of your foot for approximately 20 minutes. Follow up with primary care provider in 3-5 days for follow-up, please discuss possible peripheral vascular disease that which may be causing your foot pain and also discuss your medication management with them. Return to ED sooner if any worsening pain, swelling in your calf, redness, fever or concerns. Referrals: Vee Hansen NP [Primary Care Provider, Medicine] - 1 week Referral Note: ER follow up call for an appointment Clinical Impression: Chronic pain in right foot HPI General Mode of arrival: ambulatory . Date/Time Provider Initiated Documentation: 04/28/25 11:35 . Limitations to Documentation: no limitations . Information obtained by: patient, RN notes reviewed and old records reviewed . HPI Narrative: 44-year-old male presents to the ER with a chief complaint of right foot pain which has gradually increased. He does have a history of chronic foot pain and has seen a bander and cellophaner helper machine, he is currently awaiting a second opinion. He has been given foot braces and toe lifts and placed on Lyrica which he reports taking as prescribed. He also takes lorazepam and methadone twice a day. He states that he is been taking Tylenol and took 4 tablets prior to arrival with little to no relief. He has no reports of increased injuries or twisting of his ankle that he knows of. He does mention gout however he has no erythema swelling or warmth. He does have some dorsal foot pain midfoot. No significant abnormalities or deformities noted on exam. He does have second hammertoe. Does have some calluses and bunions noted. Related Data Home Medications ?Medication ?Instructions ?Recorded ?Confirmed methadone 10 mg/5 mL oral solution 120 - 160 mg PO Q12 H 03/29/25 04/28/25 lisinopril 40 mg tablet 40 mg PO DAILY #90 tabs 04/0504/28/25 pregabalin 75 mg capsule (Lyrica) 75 mg PO BID #60 cap s 04/19/25 04/28/25 lorazepam 1 mg tablet 1 mg PO ONCE #1 tab 04/21/25 04/28/25 Previous Rx's ?Medication ?Instructions ?Recorded lisinopril 40 mg tablet 40 mg PO DAILY #90 tabs 04/05 12/27 pregabalin 75 mg capsule (Lyrica) 75 mg PO BID #60 cap s 04/19/25 lorazepam 1 mg tablet 1 mg PO ONCE #1 tab 04/21/25 Allergies Allergy/AdvReac Type Severity Reaction Status Date / Time amoxicillin Allergy anaphylaxis, Verified 04/28/25 11:32 rash, hives Penicillins Allergy anaphylaxis, Verified 04/28/25 11:32 hives, rash Sulfa (Sulfonamide Allergy breaks out Verified 04/28/25 11:32 Antibiotics) in hives, diarrhea, anaphylaxis clonidine AdvReac makes Verified 04/28/25 11:32 chest tight tramadol AdvReac I don't Verified 04/28/25 11:32 take tramadol. General Stated Complaint: Orthopedic CAROL: 3 Review of Systems Musculoskeletal Musculoskeletal: Reports as per HPI and Reports arthralgias Exam Const General: cooperative Nutritional Appearance: obese Orientation: alert, awake and oriented x3 Extrem Right lower extremity: foot Details: normal capillary refill, tenderness Location: of the dorsal foot and of the mid foot Location: dorsally and along the plantar surface, toes with normal ROM and no edema; no unusual warmth, no edema, no abrasion, no laceration, no ecchymosis and no crepitus Course Vital Signs Vital signs: Vital Signs Temperature 36.5 C 04/28/25 11:28 Pulse 92 H 04/28/25 11:28 Respiratory Rate 18 04/28/25 11:28 Blood Pressure 189/117 H 04/28/25 11:28 Pulse Oximetry 97 04/28/25 11:28 Temperature 36.5 C 04/28/25 11:28 Temperature Source Tympanic 04/28/25 11:28 Pulse 92 H 04/28/25 11:28 Respiratory Rate 18 04/28/25 11:28 Blood Pressure 189/117 H 04/28/25 11:28 Pulse Oximetry 97 04/28/25 11:28 Pain Level 10 04/28/25 11:28 Medical Decision Making 44-year-old male presents to the ER with a chief complaint of right foot pain which has gradually increased. He does have a history of chronic foot pain and has seen a bander and cellophaner helper machine, he is currently awaiting a second opinion. He has been given foot braces and toe lifts and placed on Lyrica which he reports taking as prescribed. He also takes lorazepam and methadone twice a day. He states that he is been taking Tylenol and took 4 tablets prior to arrival with little to no relief. He has no reports of increased injuries or twisting of his ankle that he knows of. He does mention gout however he has no erythema swelling or warmth. He does have some dorsal foot pain midfoot. No significant abnormalities or deformities noted on exam. He does have second hammertoe. Does have some calluses and bunions noted. X-ray right foot ordered, ibuprofen 800 mg and ice pack. Will set her walking boot pain medication is limited as patient is taking methadone and Lyrica on a daily basis. Patient is requesting IM Toradol versus p.o. ibuprofen. 30 mg of IM Toradol ordered. Will place patient in a walking boot and have her follow-up with pending podiatry appointment and PCP. X-ray shows no acute fracture does note heel spur. This text was generated using Preactation system, please disregard any oddities of phrase or misspellings. Medical Records Medical records reviewed: Yes I reviewed the patient's medical records. PFSH All Active Problems (Updated 04/28/25 @ 13:06 by Hillary Sampson NP) Heel spur (Acute) Chronic pain in right foot (Acute) Right foot pain (Acute) Opioid use disorder, severe, on maintenance therapy (Chronic) Depressive disorder (Chronic) Generalized anxiety disorder (Chronic) Obsessive-compulsive disorder (Chronic) Attention deficit hyperactivity disorder, combined type (Chronic) Essential hypertension (Chronic) Hyperlipidemia (Chronic) Metabolic dysfunction-associated steatotic liver disease (MASLD) (Chronic) Prediabetes (Chronic) Internal derangement of right knee (Chronic) Prepatellar bursitis, right knee (Chronic) Cigarette smoker (Chronic) Obesity (BMI 30-39.9) (Chronic) Lipoma of neck (Chronic) Subclinical hypothyroidism (Chronic) Chronic low back pain (Chronic) Urinary incontinence (Chronic) nocturnal Allergic rhinitis (Chronic) Acquired hammertoes of both feet (Chronic) Peroneal tendinitis, right leg (Chronic) Plantar fasciitis, bilateral (Chronic) Bilateral foot pain (Chronic) Medical History Sensorineural hearing loss Gastroesophageal reflux disease Surgical History History of umbilical hernia repair Status post tonsillectomy S/P tendon repair Right thumb Family History Mother Depression Emphysema lung Stroke Asthma Hypertension Hyperlipidemia Father Diabetes Alcohol use disorder Hypertension Sister Depression Alcohol use disorder Substance use disorder Sister No problems noted. Son Depression Maternal Grandfather Prostate cancer Alcohol use disorder Maternal Grandmother Cancer Unknown type Alcohol use disorder Paternal Grandfather No problems noted. Paternal Grandmother No problems noted. Social History Smoking/Tobacco Use Status: Current every day Tobacco Type: cigarettes Tobacco: How many years used: 26 Quit status: considering quitting Second Hand Exposure: Yes Smoking risk assessment performed?: Yes Alcohol Intake: former Drug use: Daily Substance use type: former substance user, marijuana, crack/cocaine, opiates and other Details: fentanyl use daily; stopped using on saturday09/09/2023, no IVDU Caregiver/Support person: No Household members: spouse Housing: house Communication Needs: None Pets and animals: Yes Sexually active: Yes Do you think of yourself as: straight/heterosexual What is your relationship status?: How often do you talk on the phone with friends or family?: three or more times per week How often do you get together with friends or relatives?: once per week How often do you attend latter day or hoahaoism services?: decline to answer Do you belong to any clubs or organized social groups?: no Panel score (0-1 are the most socially isolated patients): 2 Frequency: does not exercise Special matt needs: No Do you feel safe at home: Yes Do you feel safe in your relationship?: Yes
[2025-04-28] MEDS: Ketorolac 30 MG/ML VIAL IM (12:18)
[2025-04-28 13:15] VITALS: BP 135/98; PULSE 88; RESP 20; O2SAT 98
== END 2025-04-28 13:16 | disposition home or self-care (01) ==
PROVIDERS: Emergency Provider Registered Nurse Emergency; PCP Nurse Practitioner Family
DX: M79.672 Pain in left foot (principal); M79.671 Pain in right foot; M77.31 Calcaneal spur, right foot; I10 Essential (primary) hypertension; F17.210 Nicotine dependence, cigarettes, uncomplicated
CPT/HCPCS: 96372; 99283; 73630; J1885

== ENCOUNTER 2025-05-04 10:22 | Day surgery (SDC) | payer OTHER, SELFPAY ==
--- NOTE | 2025-05-03 19:42 | PDOC.DSDIS_ITS ---
Date of service: 05/04/25 Discharge Plan Disposition Patient Disposition: Home Condition: Good Discharge Details Reason For Visit: Excision and closure of lipoma from the neck Attending Provider: Francois Cunha Primary Care Provider: Vee Hansen Home Meds and New Rx's Prescriptions: New oxycodone 5 mg tablet 5 mg PO Q8H PRNQty: 9 0RF Rx Instructions: Take 1 tablet by mouth up to every 8 hours if needed for more severe pain. Continued methadone 10 mg/5 mL solution 120 - 160 mg PO Q12H Rx Instructions: 160mg in the morning and 120mg in the evening lisinopril 40 mg tablet 40 mg PO DAILY Qty: 90 3RF lorazepam 1 mg tablet 1 mg PO ONCE Qty: 1 0RF Rx Instructions: Take 15-30min before MRI pregabalin 150 mg capsule 150 mg PO BID Qty: 60 0RF Discharge Instructions Additional Instructions: Arthur, was good seeing you today, and I hope this gives you feeling a little better. I was able to get the mass from your neck out. It was quite deep, and I am certain that this has been impacting the nerves in your right arm as you suggested. Given the size, and character during the operation, as well as its location, I will certainly have pathologist review this for a formal tissue diagnosis. Those results will take a week or 2, but as soon as I have them for evaluation I will be in touch. In the meantime, expect to get some soreness over the incision and into your shoulder. That is extremely common. There will probably also be quite a bit of bruising, which is nothing to be alarmed about. If the area starts to swell up, or if you feel anything worrisome in your neck or any difficulty breathing, please contact my office immediately, or if it is after hours go straight to the emergency department. Sometimes you can develop hematomas, or collections of blood in these big incisions, especially at this location. I do not expect that to happen, but I want to make sure you have a plan if something starts to feel out of the ordinary. You have some stitches at the skin level, as well as multiple suture levels underneath. All will be absorbed over time. You can keep the bandages in place until tomorrow, then remove them in the shower. Wash the incision with warm soapy water. You are welcome to reapply Band-Aids if you feel comfortable with that. Alternatively, you could leave the incision open to the air. The incision should be washed with warm soapy water at least twice per day during the 2 weeks thereafter. Try to keep it very clean. Ice packs over the incision will help quite a bit with pain and swelling over the next few days. Tylenol and ibuprofen should also be used ukemuv-jca-vopel for the first 2 days. I did put in a prescription for some oxycodone if you need that for more severe pain. If you need anything at all, please do not hesitate to call at any time. Otherwise I look forward to seeing you at your follow-up visit. 1. Resume all of your regular medications. 2. Use ice packs over the incision to help with pain and swelling. 3. Alternate sdul-kus-egkmbhi Tylenol and ibuprofen every 6 hours for the first 2 days, then use them as needed. 4. Leave bandage in place for 24 hours, then remove. 5. Shower with warm soapy water. Pat dry. Use a bandaid if needed to protect your clothing. 6. No soaking or tub baths until I see you in the office. 7. No heavy lifting until I see you in the office. 8. Call the office (or go directly to the emergency room after hours) if you notice any of the following: Develop chills (warm to touch), or if you have a thermometer and your temperature is above 101 Difficulty breathing or difficultly swallowing Persistent vomiting Any bleeding ? exceeding one tablespoon 9. Call your physician if the site where your intravenous was started becomes red, swollen, painful, and warm to touch. Referrals: Francois Cunha MD [ [facility] STAFF PHYSICIAN, Surgery] - 05/17/25 10:00 am Activity:: Activity as Tolerated Remove Dressings/Wound Care:: 24 hours Shower/Bathe:: 24 hours Diet:: As Tolerated DS: Diagnosis Discharge Diagnosis (1) Lipoma of neck: Status: Chronic Asessment and Plan: Outpatient postoperative follow-up
--- NOTE | 2025-05-03 19:45 | ROE_ITS ---
Operative Note Operative Note PRE-OP DIAGNOSIS: Neck lipoma POST-OP DIAGNOSIS: other (Right neck tumor) PROCEDURE: Excision and primary closure of tumor from the right neck SURGEON: Francois Cunha HEALTH CARE SPECIALIST: Katlyn Jones ANESTHESIA TYPE: General LMA/ETT Refer to Anesthesia Record ESTIMATED BLOOD LOSS: 25 PATHOLOGY: other (Right neck mass) COMPLICATIONS: None Patient was transported to: PACU Patient's condition: stable Indications: Arthur is a 44-year-old male with an enlarging mass at the base of his right lateral neck. He underwent an ultrasound that raise suspicion for a lipoma. He has developed some right shoulder and right upper extremity symptoms suggestive of mass effect from a lipoma Findings: Approximately 5 cm x 4 cm soft tissue tumor deep to the platysma with dense adhesions at the base Procedure Description: I met with Arthur in the preoperative area, and we reviewed the plan for excision and primary closure of what I suspected was a right neck lipoma. He agreed with the area in question, and I marked it. Next, we moved back to the operating room. He remained on the stretcher. General endotracheal anesthesia was initiated, and the head was supported on a gel pillow, and turned slightly to the left side. I prepped and draped the right neck. I established a generous field block with local anesthetic. Next, I made an incision over the long axis of the lesion. I dissected down into the subcutaneous space. That that was normal and healthy appearing. The mass is deep to the platysma, which I divided between cautery. After entering this compartment, I encountered what appeared to be clinically consistent with a lipoma. It was well encapsulated. There wer e some small crossing branches of the external jugular vein that were divided between suture ligation. I carefully dissected around the posterior aspect of the lesion away the surrounding soft tissues. Great care was taken not to disrupt the capsule of the lesion. Once this was complete, I began the dissection more anterior and deep. The anterior portion was intimately associated, and slightly adherent to some branching portions of the supraclavicular nerves. Great care was taken to avoid these and spare them as much as possible. This was also densely adherent to the clavicular head of the sternocleidomastoid, and what I suspect is the middle scalene. Great care was taken to avoid any type of traction or pressure injury on the underlying brachial plexus. This dissection was quite tedious, and took for longer than a typical lipoma excision. The final LigaSure device was used to help mobilize and dissect some of this. I continued the dissection down around the posterior portion until I came back out to the lateral aspect completely excising the mass. Again, some cautery from the LigaSure was used to divide some of the lower adhesions in an effort to minimize trauma to the surrounding tissues. Once the mass was completely excised it was appropriately oriented with sutures and sent for formal pathologic testing. The surgical site was irrigated. It all appeared hemostatic. The deep soft tissues were gently reapproximated with interrupted 3-0 Vicryl sutures. The site was irrigated again, and the platysma was reapproximated with interrupted 2-0 Vicryl sutures. Finally, the skin was closed with a running subcuticular stitch. A bandage was applied, and Arthur was allowed awaken from the anesthetic prior to extubation and transferred to the recovery unit.. Date of Procedure: 05/04/25
[2025-05-04] VITALS (12 sets, daily range): BP systolic 92–179; BP diastolic 46–107; PULSE 57–73; RESP 13–18; TEMP 35.9–36.3; O2SAT 91–97; BMI 44.6
[2025-05-04] MEDS: Gabapentin 300 MG CAP 600 MG PO (10:59)
[2025-05-04] MEDS: Acetaminophen 500 MG TAB 1000 MG PO (10:59)
[2025-05-04] MEDS: Celecoxib 200 MG CAP PO (10:59)
[2025-05-04] MEDS: Lactated Ringers 1,000 ML 80 ML IV (11:10)
--- NOTE | 2025-05-04 11:27 | ANES.PREOP_ITS ---
General Info Date of Service Date Performed: 05/04/25 Height: 5 ft 9 in Weight: 137.2 kg Body Mass Index (BMI): 44.6 Surgical Procedure: Operation Date: 05/04/25 11:25 Proposed Procedure Side Surgeon p Excision Lipoma Neck Right Francois Cunha MD Meds Allergies and Home Medications Allergies Allergy/AdvReac Type Severity Reaction Status Date / Time amoxicillin Allergy anaphylaxis, Verified 05/04/25 10:47 rash, hives Penicillins Allergy anaphylaxis, Verified 05/04/25 10:47 hives, rash Sulfa (Sulfonamide Allergy breaks out Verified 05/04/25 10:47 Antibiotics) in hives, diarrhea, anaphylaxis clonidine AdvReac makes Verified 05/04/25 10:47 chest tight tramadol AdvReac I don't Verified 05/04/25 10:47 take tramadol. Home Medication ?Medication ?Instructions ?Recorded methadone 10 mg/5 mL oral solution 120 - 160 mg PO Q12 H 03/29/25 lisinopril 40 mg tablet 40 mg PO DAILY #90 tabs 04/05 12/27 lorazepam 1 mg tablet 1 mg PO ONCE #1 tab 04/21/25 pregabalin 75 mg capsule (Lyrica) 150 mg (2 x 75 mg) P O BID #60 caps 04/28/25 Current Visit Medications: Current Medications Generic Name Dose Route Start Last Admin Trade Name Jasonq PRN Reason Stop Dose Admin Acetaminophen 1,000 mg 05/04/25 06:00 05/04/25 10:59 Acetaminophen 500 Mg Tab PO 06/02/25 23:59 1,000 mg PREOP POLY Administration Celecoxib 200 mg 05/04/25 06:00 05/04/25 10:59 Celecoxib 200 Mg Cap PO 06/02/25 23:59 200 mg PREOP POLY Administration Gabapentin 600 mg 05/04/25 06:00 05/04/25 10:59 Gabapentin 300 Mg Cap PO 06/02/25 23:59 600 mg PREOP POLY Administration Ringer's Solution 1,000 mls @ 80 mls/hr 05/04/25 06:00 05/04/25 11:10 IV 06/02/25 23:59 80 mls/hr INFUSION POLY Administration IV Miscellaneous Supplies 1 each 05/04/25 06:00 Iv Access IV 06/02/25 23:59 DIRECTED POLY Sodium Chloride 0 ml 05/04/25 06:00 Normal Saline Flush 10 Ml Syr IV 06/02/25 23:59 PRN PRN Sodium Chloride 0 ml 05/04/25 06:00 Normal Saline 10 Ml Vial IJ 06/02/25 23:59 DIRECTED PRN Sterile Water 0 ml 05/04/25 06:00 Water,Injection,Sterile 10 Ml Vial IJ 06/02/25 23:59 DIRECTED PRN PFSH Active Problems Active Problems: Problem Status Onset Code Heel spur Acute M77.30 Chronic pain in right foot Acute M79.671, G89.29 Right foot pain Acute M79.671 Opioid use disorder, severe, on maintenance therapy Chronic F11.20 Depressive disorder Chronic F32.9 Generalized anxiety disorder Chronic F41.1 Obsessive-compulsive disorder Chronic F42 Attention deficit hyperactivity disorder, combined type Chronic F90.2 Essential hypertension Chronic I10 Hyperlipidemia Chronic E78.5 Metabolic dysfunction-associated steatotic liver disease (MASLD) Chronic K76.0 Prediabetes Chronic R73.03 Internal derangement of right knee Chronic M23.91 Prepatellar bursitis, right knee Chronic M70.41 Cigarette smoker Chronic F17.210 Obesity (BMI 30-39.9) Chronic E66.9 Lipoma of neck Chronic D17.0 Subclinical hypothyroidism Chronic E03.8 Chronic low back pain Chronic M54.50, G89.29 Urinary incontinence Chronic R32 Allergic rhinitis Chronic J30.9 Acquired hammertoes of both feet Chronic M20.41, M20.42 Peroneal tendinitis, right leg Chronic M76.71 Plantar fasciitis, bilateral Chronic M72.2 Bilateral foot pain Chronic M79.671, M79.672 Medical History Medical History Sensorineural hearing loss Gastroesophageal reflux disease Surgical History Surgical History History of umbilical hernia repair Status post tonsillectomy S/P tendon repair Right thumb Tobacco Smoking/Tobacco Use Status: Current every day Tobacco Type: cigarettes Passive smoking exposure: Yes Second hand exposure: Yes Alcohol Alcohol Intake: former Substance Use Substance use: Current Sobriety Substance use type: former substance user, marijuana, crack/cocaine, opiates and other Vital Signs and Lab Results Vital Signs Most Recent Vital Signs in EMR: Most Recent Vital Signs Temp Pulse Resp BP Pulse Ox 35.9 C L 66 16 149/83 H 97 05/04/25 10:30 05/04/25 10:30 05/04/25 10:30 05/04/25 10:30 05/04/25 10:30 Anesthesia Assessment and Plan Anesthesia History Personal History: No History of Anesthesia Complications Family History: No Family History of Anesthesia Complications Exercise Tolerance Exercise Tolerance: Metabolic Equivalents>4 Pertinent Negatives Pertinent Negatives: No Symptoms of GERD, No Major Cardiovascular Symptoms or Complaints, No Major Pulmonary Symptoms or Complaints and No History of CVA/TIA Cardiac & Pulmonary Exam Cardiac Exam: Normal S1/S2 Heart Sounds Pulmonary Exam: Clear Bilateral Breath Sounds Implantable Cardiac Device Does patient have a Pacemaker or an ICD?: No Airway Exam Known Difficult Airway: No Mallampati Class: 3 Mouth Opening: Normal (> 3cm) Thyromental Distance: Greater than 3 cm Facial Hair: Full Baron Neck Range of Motion: Full ROM Neck Circumference: Thick Teeth Condition: Generalized Poor Dentition ASA Classification ASA Score: ASA 2 Emergency Case?: No NPO Status NPO Status: NPO Clears >2 hours, Solids >8 hours Anesthesia Plan Resuscitation Status: Full Code Anesthesia Technique: General Anesthesia Airway Planned: Endotracheal Tube Monitors Used: Standard Monitors and SedLine
[2025-05-04] MEDS: Bupivacaine 0.25% Pres-Free 30 ML VIAL (12:12)
[2025-05-04] MEDS: Bupivacaine LIPOSOME/PF 133 MG/10 ML VIAL IJ (12:12)
--- NOTE | 2025-05-04 13:39 | SOFT_PTH ---
PATIENT: Arthur Singh LOC: [facility] U#:[id number] AGE/SX: 44/M ROOM: RE05/04/[address]: Francois Cunha MD : 1980 BED: DIS: 05/04/2025 SPEC #: [id number] RECD: 05/04/25 18:56 STATUS: ALYSON RE #: [id number] SHARITA: 05/04/25 13:[address]: Francois Cunha DEPT: Surgical Specimen RECD BY: Jennifer Kauffman ENTERED: 05/04/25 18:58 SP TYPE: SOFT OTHR DR: RL Covington Tissues: 1 - SOFT TISSUE MISC (INC. LIPOMA) Procedures: GROSS AND MICRO LEVEL 3 Comments: [id number]
--- NOTE | 2025-05-04 15:32 | W.ANESPOSTOP ---
Postoperative Evaluation Date, Time and Location Date Performed: 05/04/25 Time Performed: 15:32 Patient Location: Day Surgery Unit Vital Signs Most Recent Imported Vital Signs: Most Recent Vital Signs Temp Pulse Resp BP Pulse Ox 36.3 C L 57 L 17 179/97 H 97 05/04/25 14:54 05/04/25 14:54 05/04/25 14:54 05/04/25 14:54 05/04/25 14:54 Pain Score Most Recent Pain Score: Most Recent Pain Score Pain Level 4 05/04/25 15:25 Assessment Mental Status: Awake (Alert & Oriented to Patient Baseline) Airway and Respiratory Function: Patent airway with normal (patient baseline) respiratory exam Cardiovascular Function: Hemodynamically Stable Hydration Status: Adequately Hydrated Nausea & Vomiting: No Nausea or Vomiting Pain: Pain is tolerable per patient Peripheral Nerve Block: Patient did not receive a nerve block
== END 2025-05-04 15:25 | disposition home or self-care (01) ==
LOC: SUR 10:23
PROVIDERS: PCP Nurse Practitioner Family; Visit Provider Surgery
PROC: (CPT 21554; principal; 2025-05-04 11:15)
DX: D17.0 Benign lipomatous neoplasm of skin and subcutaneous tissue of head, face and neck (principal); F11.20 Opioid dependence, uncomplicated; F41.1 Generalized anxiety disorder; F17.210 Nicotine dependence, cigarettes, uncomplicated; E66.9 Obesity, unspecified
CPT/HCPCS: 21554; 88304; J0665; J0666; J1100; J2003; J2250; J2371; J2405; J2704

== ENCOUNTER 2025-05-06 04:27 | Outpatient (CLI) | payer OTHER, SELFPAY ==
--- NOTE | 2025-05-06 07:30 | DI.MRI_ITS ---
Exam(s) MR LUMBAR SPINE WO EXAM: MR LUMBAR SPINE WO CLINICAL HISTORY: ? herniated disc on lumbar CT,M51.26,MID LUMBAR PAIN. TECHNIQUE: Multiplanar multisequence MRI of the Lumbar spine was performed. COMPARISON: MR MRI - LUMBAR SPINE WO CONTRAST from 02/10/[address] LUMBAR SPINE WO from 12/22/2023 CT scan 12/22/2023 also reviewed FINDINGS: Conus medullaris is at normal level. There is no evidence of conus mass nor subjacent clumping of intrathecal nerve roots to suggest arachnoiditis. The distal thecal sac appears unremarkable.There is no evidence of Tarlov intrasacral cysts nor other significant findings within the sacral canal Bones:There are no fractures nor ominous osseous lesions in the lumbar vertebral bodies and visualized sacrum. With respect to the individual levels... T12-L1: Unremarkable L1-2: Normal disc height and signal. No disc herniation nor central canal stenosis.No foraminal stenosis L2-3: Normal disc height. No disc herniation nor central canal stenosis.No foraminal stenosis.No facet arthropathy. L3-4: Normal disc height. Broad relatively symmetrical annular bulging. However, there is a lateral left disc protrusion just medial to the exiting left neural foramen. This extends posteriorly 2 mm and is approximately 6 mm wide. Mildly narrowing the left lateral recess. Slightly larger than 2014. It extends slightly into the floor of the exiting left neural foramen but there is noted true foraminal stenosis. Opposite-right exiting neural neural foramen appears unremarkable. No significant facet arthropathy L4-5: Relatively preserved disc height. There is a small central-left paracentral disc protrusion which extends posteriorly 2 mm and is approximately 9 mm wide. This slightly indents the thecal sac. Slightly larger than 2014. There is mild central canal stenosis. There does not appear to be significant left-sided foraminal stenosis. Also no foraminal stenosis on the opposite-right side. No significant facet arthropathy. L5-S1: Normal disc height and signal. Mild annular bulging without a significant disc herniation or central canal stenosis. Facet joints unremarkable. There is no foraminal stenosis at this level. Soft tissues: paraspinal soft tissues appear unremarkable. IMPRESSION: 1. There are small left paracentral and left posterolateral disc protrusions at L4-5 and L3-4 levels as described above. There is mild central canal stenosis at both these levels. There is no prominent foraminal stenosis. These findings have slightly further progressed when compared to MRI scan of 2015. 2. There is no significant facet arthropathy in the lumbar spine. DATA REPOSITORY:
== END 2025-05-06 04:47 ==
LOC: DI 04:28
PROVIDERS: PCP Nurse Practitioner Family; Visit Provider Nurse Practitioner Family
DX: M48.061 Spinal stenosis, lumbar region without neurogenic claudication (principal)
CPT/HCPCS: 72148

== ENCOUNTER 2025-05-09 13:32 | Emergency (ER) | payer OTHER, SELFPAY ==
[2025-05-09 13:59] VITALS: BP 161/108; PULSE 104; RESP 18; TEMP 36.7; O2SAT 95
--- NOTE | 2025-05-09 14:30 | DI.CT_ITS ---
Exam(s) CT NECK W EXAM: CT NECK W INDICATION: R neck surg site w/ pain, bruising, ? active bleed. COMPARISON: No exams were available for comparison TECHNIQUE: FINDINGS: VISUALIZED PARANASAL SINUSES: Polyp or post inflammatory retention cyst in the lateral wall of the left maxillary sinus measuring approximately 1 cmz. There is no associated fluid level. No bone dehiscence. Another similar finding is seen more inferiorly in the left maxillary sinus. NASOPHARYNX: Unremarkable ORODENTAL: Unremarkable. OROPHARYNX: Unremarkable. No masses evident. HYPOPHARYNX: Unremarkable. Valleculae and epiglottis and aryepiglottic folds appear normal. VOCAL CORDS: Unremarkable. No masses evident. Subglottic airway appears unremarkable. THYROID GLAND: Unremarkable. Normal size and no obvious nodules. SALIVARY GLANDS: Unremarkable. No significant findings in the parotid and submandibular glands. LYMPH NODES: There is no adenopathy evident in the neck and supraclavicular regions. OTHER: There is some air-gas in the soft tissues in the lateral right side of the neck. This is lateral to the sternocleidomastoid muscle and is so seated with significant fat streaking and density posterior to this which is either hematoma or abscess measuring approximately 6 cm AP by 3 cm wide by 5.5 cm craniocaudal. VISUALIZED LUNG APICES: No significant findings. IMPRESSION: 1. Significant area of abnormality in in the lower right side of the neck lateral to and posterior to the sternocleidomastoid muscle. There is both free air-gas and what is either hematoma or other type of fluid collection measuring approximately 6 x 3 x 5.5 cm. Although there is presently no ring enhancement of this finding, this does not exclude the possibly that this is developing into an abscess. Close follow-up recommended. Preliminary virtual Radiology report was reviewed. Final report called by myself to the ER physician on 05/09/2025 at 3:50 p.m. RADIATION DOSE DELIVERED: 418.69mGy.cm Total DLP DATA REPOSITORY: All CT scans at this facility are submitted to the National Radiology Data Registry (NRDR) Dose Index Registry (DIR) with the [employer] (A[employer]). RADIATION OPTIMIZATION: All CT scans at this facility use at least one of these dose optimization techniques: automated exposure control; mA and/or kV adjustment per patient size (includes targeted exams where dose is matched to clinical indication); or iterative reconstruction.
--- NOTE | 2025-05-09 14:44 | W.ED.GENAD ---
Discharge Plan Disposition Patient Disposition: Home Condition: Fair Discharge Details Clinical Impression: Hematoma of neck Primary Care Provider: Vee Hansen ED Provider: Félix Campos Home Meds and New Rx's Prescriptions: No Action methadone 10 mg/5 mL solution 120 - 160 mg PO Q12H Rx Instructions: 160mg in the morning and 120mg in the evening lisinopril 40 mg tablet 40 mg PO DAILY Qty: 90 3RF pregabalin 150 mg capsule 150 mg PO BID Qty: 60 0RF oxycodone 5 mg tablet 2.5 mg PO Q8H MDD 10 mg PRN (Reason: pain) Qty: 6 0RF Rx Instructions: Take half a tablet by mouth every 8 hours if needed for more severe pain. ondansetron HCl 8 mg tablet 8 mg PO TID PRN (Reason: nausea and vomiting) Qty: 60 0RF prazosin 1 mg capsule 1 mg PO HS Patient Comments: TAKE ONE CAPSULE BY MOUTH AT BEDTIME Discharge Instructions Instructions: Taking care of bruises Additional Instructions: Your bruising is likely from the blood clot from your procedure dissolving. At this point in time there are no signs of any active bleeding. Please be aware that this does not mean that there will not be bleeding in the future and if you get increased pain or swelling you should be rechecked. This fluid can also become infected such that if you develop redness or fever you should be rechecked. Call your surgeon tomorrow to arrange follow-up. HPI General Date/Time Provider Initiated Documentation: 05/09/25 13:35. HPI Narrative: Is a 44-year-old male presenting to the emergency department chief complaint of right shoulder pain. Patient is approximately 5 days postop from a lipoma resection at the base of the right neck. Today he felt a sudden pain and the bruising surrounding the procedure expanded down his chest. He has not had any recent trauma. He is not on any blood thinners. He states that there is a burning discomfort in the area. He has not had any bleeding from the region. No shortness of breath or chest pain. No fevers. No other complaints or concerns. Related Data Home Medications ?Medication ?Instructions ?Recorded ?Confirmed methadone 10 mg/5 mL oral solution 120 - 160 mg PO Q12H 03/29/25 05/09/25 lisinopril 40 mg tablet 40 mg PO DAILY #90 tabs 04/19/25 05/09/25 pregabalin 150 mg capsule 150 mg PO BID #60 caps 05/04/25 05/09/25 oxycodone 5 mg tablet 2.5 mg (1/2 x 5 mg) PO Q8H PRN 05/06/25 05/09/25 pain #6 tabs ondansetron HCl 8 mg tablet 8 mg PO TID PRN nausea and 05/07/25 05/09/25 vomiting #60 tabs prazosin 1 mg capsule 1 mg PO HS 05/09/25 05/09/25 Previous Rx's ?Medication ?Instructions ?Recorded lisinopril 40 mg tablet 40 mg PO DAILY #90 tabs 04/19/25 pregabalin 150 mg capsule 150 mg PO BID #60 caps 05/04/25 oxycodone 5 mg tablet 2.5 mg (1/2 x 5 mg) PO Q8H PRN 05/06/25 pain #6 tabs ondansetron HCl 8 mg tablet 8 mg PO TID PRN nausea and 05/07/25 vomiting #60 tabs Allergies Allergy/AdvReac Type Severity Reaction Status Date / Time amoxicillin Allergy anaphylaxis, Verified 05/09/25 14:06 rash, hives Penicillins Allergy anaphylaxis, Verified 05/09/25 14:06 hives, rash Sulfa (Sulfonamide Allergy breaks out Verified 05/09/25 14:06 Antibiotics) in hives, diarrhea, anaphylaxis clonidine AdvReac makes Verified 05/09/25 14:06 chest tight tramadol AdvReac I don't Verified 05/09/25 14:06 take tramadol. General Stated Complaint: GenMedical CAROL: 3 Review of Systems All systems reviewed & are unremarkable except as noted in HPI and below Constitutional Constitutional: Reports system reviewed and no additional complaints, except as documented, Denies fever(s), Denies weakness and Denies weight loss Eyes Eyes: Denies blurry vision ENT Ears, Nose, Mouth, and Throat: Denies sore throat Cardiovascular Cardiovascular: Denies chest pain, Denies palpitations and Denies dyspnea Respiratory Respiratory: Denies cough, Denies dyspnea and Denies wheezing Gastrointestinal Gastrointestinal: Denies abdominal pain, Denies diarrhea, Denies nausea and Denies vomiting Genitourinary Genitourinary: Denies hematuria and Denies dysuria Musculoskeletal Musculoskeletal: Denies back pain, Denies arthralgias and Denies numbness Integumentary/Breasts Comments: Bruising in the right neck and chest Neurologic Neurologic: Denies numbness and Denies weakness Psychiatric Psychiatric: Denies suicidal ideation Endocrine Endocrine: Denies palpitations Allergic/Immunologic Allergic/Immunologic: Denies wheezing Exam Const General: no acute distress and well groomed HENMT Mouth: oral mucosae normal and moist mucous membranes Throat: posterior oropharynx normal Eyes Conjunctivae: conjunctivae normal Sclera: sclerae normal Neck Neck: full ROM and No JVD Resp Effort & Inspection: normal respiratory effort Auscultation: clear to auscultation bilaterally Cardio Rate: regular rate Rhythm: regular rhythm Heart Sounds: no murmurs GI Palpation: soft and nontender Skin General skin exam: no rashes or lesions noted Other: Surgical incision is closed. There is purple and yellowish bruising on the right shoulder and upper anterior chest. Neuro General: patient alert and patient oriented x3 Extrem General: normal to inspection and full ROM Psych Appearance: grossly normal Mental Status: mental status grossly normal Speech and Movement: speech and movement normal Affect: normal affect Thought Process: normal Course Vital Signs Vital signs: Vital Signs Temperature 36.7 C 05/09/25 13:59 Pulse 104 H 05/09/25 13:59 Respiratory Rate 18 05/09/25 13:59 Blood Pressure 161/108 H 05/09/25 13:59 Pulse Oximetry 95 05/09/25 13:59 Temperature 36.7 C 05/09/25 13:59 Temperature Source Oral 05/09/25 13:59 Pulse 104 H 05/09/25 13:59 Respiratory Rate 18 05/09/25 13:59 Blood Pressure 161/108 H 05/09/25 13:59 Blood Pressure Position Sitting 05/09/25 13:59 Pulse Oximetry 95 05/09/25 13:59 Oxygen Delivery Method Room Air 05/09/25 13:59 Oxygen Flow Rate 0 05/09/25 13:59 Pain Level 10 05/09/25 13:59 Medical Decision Making Is a 44-year-old male presenting to the emergency department the chief complaint of shoulder pain. The patient was seen and examined by me. Old charts were reviewed and nursing notes were reviewed. The procedure note is not included in this EMR. Patient was provided Toradol for discomfort. Labs and a CT with contrast were initiated to determine whether or not there is active bleeding. Labs reviewed by me are clinically unremarkable. White count today is 11.5. CT reveals a fluid collection with a small amount of gas. No ring enhancement. No active bleeding. This is consistent with a hematoma and the recent surgical intervention. I had a discussion with the patient. I suspect the hematoma is dissolving and migrating down his chest secondary to gravity. He may have had some interval bleeding which has stopped. He is encouraged to return if symptoms worsen in any way such as expansion of the swelling, redness, fever. Patient was informed of the possibility that this could become infected or could bleed. He is to be rechecked by his surgeon. I have asked him to call tomorrow. Patient is agreeable to this plan. Medical Records Medical records reviewed: Yes I reviewed the patient's medical records. [facility] All Active Problems (Updated 05/09/25 @ 16:01 by Félix Campos MD) Hematoma of neck (Acute) Heel spur (Acute) Chronic pain in right foot (Acute) Right foot pain (Acute) Opioid use disorder, severe, on maintenance therapy (Chronic) Depressive disorder (Chronic) Generalized anxiety disorder (Chronic) Obsessive-compulsive disorder (Chronic) Attention deficit hyperactivity disorder, combined type (Chronic) Essential hypertension (Chronic) Hyperlipidemia (Chronic) Metabolic dysfunction-associated steatotic liver disease (MASLD) (Chronic) Prediabetes (Chronic) Internal derangement of right knee (Chronic) Prepatellar bursitis, right knee (Chronic) Cigarette smoker (Chronic) Obesity (BMI 30-39.9) (Chronic) Lipoma of neck (Chronic) Subclinical hypothyroidism (Chronic) Chronic low back pain (Chronic) Urinary incontinence (Chronic) nocturnal Allergic rhinitis (Chronic) Acquired hammertoes of both feet (Chronic) Peroneal tendinitis, right leg (Chronic) Plantar fasciitis, bilateral (Chronic) Bilateral foot pain (Chronic) Medical History Sensorineural hearing loss Gastroesophageal reflux disease Surgical History History of local excision of skin lesion (~05/04/25) right side of the base of his neck, lipoma History of umbilical hernia repair Status post tonsillectomy S/P tendon repair Right thumb Family History Mother Depression Emphysema lung Stroke Asthma Hypertension Hyperlipidemia Father Diabetes Alcohol use disorder Hypertension Sister Depression Alcohol use disorder Substance use disorder Sister No problems noted. Son Depression Maternal Grandfather Prostate cancer Alcohol use disorder Maternal Grandmother Cancer Unknown type Alcohol use disorder Paternal Grandfather No problems noted. Paternal Grandmother No problems noted. Social History Smoking/Tobacco Use Status: Current every day Tobacco Type: cigarettes Tobacco: How many years used: 26 Quit status: considering quitting Second Hand Exposure: Yes Smoking risk assessment performed?: Yes Alcohol Intake: former Drug use: Current Sobriety Substance use type: former substance user, marijuana, crack/cocaine, opiates and other Caregiver/Support person: No Household members: spouse Housing: house Communication Needs: None Pets and animals: Yes Sexually active: Yes Do you think of yourself as: straight/heterosexual What is your relationship status?: How often do you talk on the phone with friends or family?: three or more times per week How often do you get together with friends or relatives?: once per week How often do you attend adventist or mandaen services?: decline to answer Do you belong to any clubs or organized social groups?: no Panel score (0-1 are the most socially isolated patients): 2 Frequency: does not exercise Special matt needs: No Additional Social history: [employer]
[2025-05-09] MEDS: Ketorolac 15 MG/ML VIAL IVP (14:45)
[2025-05-09 14:51] VITALS: BP 161/108; PULSE 104; RESP 18; TEMP 36.7; O2SAT 95
[2025-05-09 14:55] LABS: HCT 42.6 % (40.0-50.0); HGB 13.8 g/dL (13.5-17.5); MCH 29.9 pg (27.0-33.0); MCHC 32.4 % (32.0-36.0); MCV 92 fL (80-95); MPV 9.1 fL (8.0-11.0); Platelet Count 287 10^3/uL (130-400); RBC 4.61 10^6/uL (4.36-5.78); RDW 13.1 % (11.8-14.1); RDW-SD 44.5 fL; WBC 11.49 10^3/uL (4.4-10.8)
[2025-05-09 15:06] LABS: INR 0.9 (0.9-1.1); Prothrombin Time 9.5 sec (9.1-11.1)
[2025-05-09] MEDS: Omnipaque 350 MG/ML 100 ML BTL IJ (15:09)
[2025-05-09 15:10] VITALS: PULSE 90; PULSE 91; RESP 19; O2SAT 96
[2025-05-09 15:10] LABS: Anion Gap 6.7 mmol/L (3-11); BUN 14 mg/dL (7-18); CO2 31.3 mmol/L (21.0-32.0); Calcium 8.6 mg/dL (8.5-10.1); Chloride 101 mmol/L (98-107); Estimated GFR 110.53 (mL/min/1.73m2); Glucose 134 mg/dL (74-106); Potassium 4.1 mmol/L (3.5-5.1); Sodium 139 mmol/L (136-145)
[2025-05-09] MEDS: Normal Saline Flush 10 ML SYR IVP (15:10)
[2025-05-09] MEDS: Normal Saline - Diluent 50 ML VIAL IJ (15:10)
[2025-05-09 15:20] VITALS: PULSE 86; PULSE 87; RESP 19; O2SAT 96
[2025-05-09 15:30] VITALS: PULSE 87; PULSE 88; RESP 24; O2SAT 95
--- NOTE | 2025-05-09 15:32 | DI.VRAD_ITS ---
PROCEDURE INFORMATION: Exam: CT Neck With Contrast Exam date and time: 05/09/2025 2:58 PM Age: 44 years old Clinical indication: Condition or disease; Prior surgery; Surgery date: <1 month; Surgery type: R neck surg site w/ pain, bruising, ? active bleed - lipoma removal TECHNIQUE: Imaging protocol: Computed tomography of the neck with contrast. Contrast material: OMNIPAQUE 350; Contrast volume: 100 ml; Contrast route: INTRAVENOUS (IV); COMPARISON: US SOFT TISSUE HEAD OR NECK 06/02/2024 8:33 AM FINDINGS: Salivary glands: Normal. Glands are normal in size. Pharynx: Unremarkable. No significant tonsillar enlargement. Larynx: Unremarkable. Epiglottis is normal. Thyroid: Normal. No enlarged or calcified nodules. Trachea: Visualized trachea is unremarkable. Lungs: Unremarkable as visualized. Lymph nodes: Unremarkable. No lymphadenopathy. Bones/joints: Unremarkable. No acute fracture. Soft tissues: There are small amounts of subcutaneous emphysema at the level of the right supraclavicular fossa extending to the lower neck level series 3, images 27-37. Soft tissue stranding extends approximately 2 cm more inferior to this level. No definite drainable collection is identified. There is no active contrast extravasation appreciated. The area of involvement measures approximately 5.5 x 2.1 x 4.7 cm. IMPRESSION: Right supraclavicular hematoma and postsurgical change. No evidence for active hemorrhage. No definite drainable collection. Dictated and Authenticated by: Nora Ocampo MD. Orderin Beth Heard MD
[2025-05-09] MEDS: MORPHine 4 MG/ML SYR IVP (15:50)
== END 2025-05-09 16:16 | disposition home or self-care (01) ==
PROVIDERS: Emergency Provider Emergency Medicine; PCP Nurse Practitioner Family
DX: S10.83XA Contusion of other specified part of neck, initial encounter (principal); X58.XXXA Exposure to other specified factors, initial encounter; Z98.890 Other specified postprocedural states
CPT/HCPCS: 99284 ×2; 96374; 96375; 36415; 70491; 80048; 85027; 85610; J1885; J2270; J3490

== ENCOUNTER 2025-06-02 10:38 | Outpatient (CLI) | payer OTHER, SELFPAY ==
[2025-06-02 14:29] LABS: TSH (W/Ref FT4) 6.00 uIU/mL (0.36-3.74)
== END 2025-06-02 10:39 | disposition home or self-care (01) ==
LOC: LOS 10:38
PROVIDERS: PCP Nurse Practitioner Family; Visit Provider Nurse Practitioner Family
DX: E03.8 Other specified hypothyroidism (principal)
CPT/HCPCS: 36415; 84439; 84443

== ENCOUNTER 2025-07-23 10:07 | Emergency (ER) | payer OTHER, SELFPAY ==
[2025-07-23 10:15] VITALS: BP 163/101; PULSE 72; RESP 18; TEMP 36.4; O2SAT 95
[2025-07-23 11:36] VITALS: BP 163/101; PULSE 72; RESP 18; TEMP 36.4; O2SAT 95
--- NOTE | 2025-07-23 11:36 | W.ED.GENAD ---
Discharge Plan Disposition Patient Disposition: Home Condition: Stable Discharge Details Clinical Impression: Abscess of multiple sites Primary Care Provider: Vee Hansen ED Provider: Phillip Amezcua Home Meds and New Rx's Prescriptions: New gabapentin [Neurontin] 100 mg capsule 100 mg PO TID Qty: 60 0RF Continued methadone 10 mg/5 mL solution 118 - 160 mg PO Q12H Rx Instructions: 160mg in the morning and 118mg in the evening lisinopril 40 mg tablet 40 mg PO DAILY Qty: 90 3RF Lactobacillus acidophilus 1 billion cell capsule 1,000 mmu cells PO DAILY Qty: 5 0RF mupirocin 2 % ointment 1 applic topical BID Qty: 15 0RF Rx Instructions: apply twice daily for 10 days doxycycline hyclate 100 mg tablet 100 mg PO BID Qty: 20 0RF ondansetron HCl 8 mg tablet 8 mg PO TID PRN (Reason: nausea and vomiting) Qty: 60 0RF prazosin 1 mg capsule 1 mg PO HS Patient Comments: TAKE ONE CAPSULE BY MOUTH AT BEDTIME Discontinued nicotine 21 mg/24 hr patch 24 hour 1 patch transdermal DAILY Qty: 42 0RF Rx Instructions: Apply 1 patch daily for 6 weeks nicotine 7 mg/24 hr patch 24 hour 1 patch transdermal DAILY 14 Days Qty: 14 6RF Rx Instructions: Apply 1 patch daily for 2 wks after 14mg patch pregabalin 300 mg capsule 300 mg PO BID Qty: 180 3RF Discharge Instructions Instructions: Skin Abscess Additional Instructions: Please take full course of medications as prescribed. Please follow-up with your primary care physician. Return to the emergency department immediately for any worsening or new concerning symptoms. Stand Alone Forms: Portal Information Discharge Data Discharge Date/Time-TO BE ENTERED AT DEPARTURE: 07/23/25 12:01 [facility] General Mode of arrival: ambulatory. Date/Time Provider Initiated Documentation: 07/23/25 11:09. Limitations to Documentation: no limitations. Information obtained by: patient. HPI Narrative: HISTORY OF PRESENT ILLNESS This is a 44-year-old male with a history of skin lesions presenting with concerns of a staph infection. The patient was recently seen in [facility] for skin lesions on his right shoulder that started about a month ago and have since spread to his abdomen, chest, and upper thighs. Wound cultures were performed today due to concern for a staph infection. He was started on doxycycline and prescribed cream as recommended treatment. The patient reports experiencing significant pain due to the infection. The discomfort is intense and has surpassed the relief capabilities of Tylenol, the only medication provided by the walk-in clinic. He has previously found significant relief from gabapentin. Patient requesting gabapentin. Related Data Home Medications ?Medication ?Instructions ?Recorded ?Confirmed lisinopril 40 mg tablet 40 mg PO DAILY #90 tabs 04/19/25 07/26/25 prazosin 1 mg capsule 1 mg PO HS 05/09/25 07/26/25 Lactobacillus acidophilus 1 1,000 mmu cells PO DAILY #5 caps 05/10/25 07/26/25 billion cell capsule methadone 10 mg/5 mL oral solution 118 - 160 mg PO Q12H 06/02/25 07/26/25 ondansetron HCl 8 mg tablet 8 mg PO TID PRN nausea and 06/22/25 07/26/25 vomiting #60 tabs doxycycline hyclate 100 mg tablet 100 mg PO BID #20 tabs 07/23/25 07/26/25 gabapentin 100 mg capsule 100 mg PO TID #60 caps 07/23/25 07/26/25 (Neurontin) mupirocin 2 % topical ointment 1 applic topical BID #15 grams 07/23/25 07/26/25 Previous Rx's ?Medication ?Instructions ?Recorded lisinopril 40 mg tablet 40 mg PO DAILY #90 tabs 04/19/25 Lactobacillus acidophilus 1 1,000 mmu cells PO DAILY #5 caps 05/10/25 billion cell capsule ondansetron HCl 8 mg tablet 8 mg PO TID PRN nausea and 06/22/25 vomiting #60 tabs doxycycline hyclate 100 mg tablet 100 mg PO BID #20 tabs 07/23/25 gabapentin 100 mg capsule 100 mg PO TID #60 caps 07/23/25 (Neurontin) mupirocin 2 % topical ointment 1 applic topical BID #15 grams 07/23/25 Allergies Allergy/AdvReac Type Severity Reaction Status Date / Time amoxicillin Allergy anaphylaxis, Verified 07/23/25 09:20 rash, hives Penicillins Allergy anaphylaxis, Verified 07/23/25 09:20 hives, rash Sulfa (Sulfonamide Allergy breaks out Verified 07/23/25 09:20 Antibiotics) in hives, diarrhea, anaphylaxis clonidine AdvReac makes Verified 07/23/25 09:20 chest tight tramadol AdvReac I don't Verified 07/23/25 09:20 take tramadol. General Stated Complaint: Cellulitis CAROL: 4 Review of Systems All systems reviewed & are unremarkable except as noted in HPI and below Constitutional Constitutional: Denies fever(s) Exam Const General: cooperative and no acute distress Skin Rashes: rashes noted (Ulcerated lesions in various stages of healing on torso) Other: No areas of fluctuance Course Vital Signs Vital signs: Vital Signs Temperature 36.4 C 07/23/25 10:15 Pulse 72 07/23/25 10:15 Respiratory Rate 18 07/23/25 10:15 Blood Pressure 163/101 H 07/23/25 10:15 Pulse Oximetry 95 07/23/25 10:15 Temperature 36.4 C 07/23/25 10:15 Temperature Source Oral 07/23/25 10:15 Pulse 72 07/23/25 10:15 Respiratory Rate 18 07/23/25 10:15 Blood Pressure 163/101 H 07/23/25 10:15 Pulse Oximetry 95 07/23/25 10:15 Pain Level 10 07/23/25 10:15 Medical Decision Making ASSESSMENT AND PLAN Initial Assessment: 44-year-old male with skin lesions on right shoulder, abdomen, chest, and upper thighs with ulceration, very stages of healing. Concern for staph infection. Differential Diagnosis: - Painful rash, suspected staph infection ED Course: - Reviewed outpatient express care note from earlier today. Wound cultures pending. Patient started on doxycycline. - Gabapentin prescribed Clinical Impression: - Suspected staphylococcal infection Disposition: - Follow-Up: Follow up with primary care physician on 08/02/2025 Patient Education: Ensure follow-up with primary care physician to monitor healing of lesions. This document was written with the assistance of ANIRUDH Fairbanks. The patient consented to its use. Quality:SDOH Health Related Social Needs: Health related social needs house/econ circumstance lonely/isolated PFSH All Active Problems (Updated 07/23/25 @ 11:39 by Phillip Amezcua MD) Abscess of multiple sites (Acute) KRISTY (obstructive sleep apnea) (Chronic) Mild on PSG 2012, declines CPAP Opioid use disorder, severe, on maintenance therapy (Chronic) Depressive disorder (Chronic) Generalized anxiety disorder (Chronic) Obsessive-compulsive disorder (Chronic) Attention deficit hyperactivity disorder, combined type (Chronic) Essential hypertension (Chronic) Hyperlipidemia (Chronic) Metabolic dysfunction-associated steatotic liver disease (MASLD) (Chronic) Lumbosacral radiculopathy due to degenerative joint disease of spine (Chronic) Internal derangement of right knee (Chronic) Prepatellar bursitis, right knee (Chronic) Cigarette smoker (Chronic) Obesity (BMI 30-39.9) (Chronic) Subclinical hypothyroidism (Chronic) Chronic low back pain (Chronic) Urinary incontinence (Chronic) nocturnal Allergic rhinitis (Chronic) Acquired hammertoes of both feet (Chronic) Peroneal tendinitis, right leg (Chronic) Plantar fasciitis, bilateral (Chronic) Bilateral foot pain (Chronic) Medical History (Updated 07/23/25 @ 11:39 by Phillip Amezcua MD) Lipoma Prediabetes Sensorineural hearing loss Gastroesophageal reflux disease Surgical History S/P excision of lipoma (05/04/25) History of umbilical hernia repair Status post tonsillectomy S/P tendon repair Right thumb Family History Mother Depression Emphysema lung Stroke Asthma Hypertension Hyperlipidemia Father Diabetes Alcohol use disorder Hypertension Sister Depression Alcohol use disorder Substance use disorder Sister No problems noted. Son Depression Maternal Grandfather Prostate cancer Alcohol use disorder Maternal Grandmother Cancer Unknown type Alcohol use disorder Paternal Grandfather No problems noted. Paternal Grandmother No problems noted. Social History Smoking/Tobacco Use Status: Current every day Tobacco Type: cigarettes Smoking packs per day: 1.5 Smoking cigarettes per day: 30.0 Years smoked: 30 Smoking pack-years: 45.00 Tobacco: How many years used: 30 Quit status: considering quitting Second Hand Exposure: Yes Smoking risk assessment performed?: Yes Alcohol Intake: former Drug use: Current Sobriety Substance use type: former substance user, marijuana, crack/cocaine, opiates and other Caregiver/Support person: No Household members: spouse Housing: house Communication Needs: None Pets and animals: Yes Sexually active: Yes Do you think of yourself as: straight/heterosexual What is your relationship status?: How often do you talk on the phone with friends or family?: three or more times per week How often do you get together with friends or relatives?: once per week How often do you attend quaker or restorationism services?: decline to answer Do you belong to any clubs or organized social groups?: no Panel score (0-1 are the most socially isolated patients): 2 Frequency: does not exercise Special matt needs: No Additional Social history: [facility]
== END 2025-07-23 12:01 | disposition home or self-care (01) ==
PROVIDERS: Emergency Provider Student in an Organized Health Care Education/Training Program; PCP Nurse Practitioner Family
DX: L02.213 Cutaneous abscess of chest wall; L02.415 Cutaneous abscess of right lower limb; L02.416 Cutaneous abscess of left lower limb; L02.211 Cutaneous abscess of abdominal wall; L02.413 Cutaneous abscess of right upper limb; Z59.89 Other problems related to housing and economic circumstances
CPT/HCPCS: 99283 ×2

== ENCOUNTER 2025-07-23 15:10 | Outpatient (REF) | payer OTHER, SELFPAY | END 2025-07-23 15:11 | disposition home or self-care (01) | LOC: LBN 15:10 | PROVIDERS: PCP Nurse Practitioner Family; Visit Provider Nurse Practitioner Family | DX: L98.9 Disorder of the skin and subcutaneous tissue, unspecified (principal) | CPT/HCPCS: 87077; 87070; 87186; 87205 ==